=== PATIENT | female | born 1930 | race Caucasian/White ===

== ENCOUNTER → 2016-09-25 | Day surgery (SDC) | payer OTHER ==
[~2016-09-25] VITALS: Ht 154.9 cm; Wt 72.7 kg
[~2016-09-25] MED LIST: ASPEC81 PO; CALC500C70 PO; CHOL1000 PO; FENTANYL CITRATE INJ 50 MCG/1 ML 2 ML VIAL ONE; FRS/40 PO; LIDOCAINE HCL 2% 2 ML VIAL (20MG/ML) ONE; LPT/40 PO; METO50TA7 PO; MULT-768 PO; OMEP20CA9 PO; POTA20TA16 PO; PROPOFOL IV EMULSION 10 MG/ML 20 ML VIAL IV ONE; SODIUM CHLORIDE 0.9% 500ML 500 ML IV ONE; TYL325X PO
[2016-09-25 10:04] VITALS: Ht 154.9 cm; Wt 72.7 kg
--- NOTE | 2016-09-25 10:16 | Endo History and Physical ---
History & Physical Date of Service: Sep 25, 2016. Chief Complaint: Diverticulitis Referring Physician: History of Present Illness 86 yo presenting for evaluation for colonoscopy after admission in June for abnormal CT scan revealing mild terminal illeal inflammation Past Medical History Angioplasty/Stent, Osteoporosis, Arthritis, Reflux, Hypertension, CVA/TIA, Other Past Surgical History Hx Cardiac Surgery: Yes (HEART CATH-2 STENTS) Hx Internal Defibrillator: No Hx Pacemaker: No Hx Abdominal Surgery: Yes (JOSE, COLON SX WITH COLOSTOMY WITH REVERSAL MANY YEARS AGO) Hx Post-Op Nausea and Vomiting: No Hx Cancer Surgery: No Hx Thoracic Surgery: No Hx Orthopedic: Yes (LEFT FOOT SX X 3) Hx Urinary Tract Surgery: No Social History Smoking Status: Never Smoker Hx Substance Use: No Hx Alcohol Use: No Allergies Coded Allergies: No Known Allergies (Verified , 09/15/16) Current Medications Reported Home Medications Medications Dose Route/Sig Max Daily Dose Days Date Category Os-Ole 500 Plus D (Calcium/Vitamin D) Tab 1 Tab PO DAILY 07/06/16 Reported Prilosec (Omeprazole) 20 Mg Cap 20 Mg PO BID 07/06/16 Reported Vitamin D3 (Cholecalciferol) 1,000 Unit Tab 1 Tab PO QAM 30 07/06/16 Reported Macular Vitamin Benefit (Multiple Vitamins W/ Minerals) 1 Tab Tab 1 Tab PO DAILY 07/06/16 Reported Tylenol (Acetaminophen) 325 Mg Tab 650 Mg PO Q6H PRN 10 12/15/15 Rx Lipitor (Atorvastatin) 40 Mg Tab 40 Mg PO QPM 10 12/15/15 Rx Klor-Con (Potassium Chloride) 20 Meq Tabcr 20 Meq PO NOON 10 12/15/15 Rx Toprol-Xl (Metoprolol Succinate) 50 Mg Tabcr 50 Mg PO NOON 10 12/15/15 Rx Lasix (Furosemide) 40 Mg Tab 40 Mg PO QAM 10 12/15/15 Rx Ecotrin Or Generic * (Aspirin) 81 Mg Ectab 81 Mg PO QAM 02/27/09 Reported Vital Signs Weight (Kilograms): 72.73 Height (Feet): 5 Height (Inches): 1 Date Time Temp Pulse Resp B/P Pulse Ox O2 Delivery O2 Flow Rate FiO2 09/25/16 09:59 36.7 90 20 131/73 94 Room Air Physical Exam General Appearance: WD/WN, no apparent distress Respiratory/Chest: Respiratory effort: no dyspnea Auscultation: breath sounds normal, CTA except as noted, no wheezing Cardiovascular: Apical Impulse: not displaced Heart Auscultation: RRR, normal S1, normal S2 Abdomen: Bowel Sounds: normal Inspection & Palpation: soft, non-distended Assessment and Plan 86 yo presenting for evaluation for abnormal CT scan for the terminal illeum
--- NOTE | 2016-09-25 11:38 | GI REPORT ---
Procedure Date: 09/25/2016 10:27 AM Procedure: Colonoscopy Indications: Abnormal CT of the GI tract, Admission in June 2016 with abdominal pain and CT suggesting inflammation of the terminal ileum. Medicines: General Anesthesia Complications: No immediate complications. Estimated blood loss: None. Estimated Blood Loss: Estimated blood loss: none. Procedure: Pre-Anesthesia Assessment: - Pre-Anesthesia Assessment: - Prior to the procedure, a History and Physical was performed, and patient medications, allergies and sensitivities were reviewed. The patient's tolerance of previous anesthesia was reviewed. Please see [employer] for complete details. - The risks and benefits of the procedure and the sedation options and risks were discussed with the patient. All questions were answered and informed consent was obtained. - Patient identification and proposed procedure were verified prior to the procedure by the physician and the nurse. The procedure was verified in the pre-procedure area in the procedure room. After obtaining informed consent, the endoscope was passed carefully and meticuously under direct vision and only advanced when the lumen was clearly identified, C02 insuflation was utilized throughout the entirity of the procedure. Throughout the procedure, the patient's blood pressure, pulse, and oxygen saturations were monitored continuously. After I obtained informed consent, the scope was passed under direct vision. Throughout the procedure, the patient's blood pressure, pulse, and oxygen saturations were monitored continuously. The scope was introduced through the anus and advanced to the terminal ileum, with identification of the appendiceal orifice and IC valve. The colonoscopy was performed without difficulty. The patient tolerated the procedure well. The quality of the bowel preparation was fair. Findings: A diffuse area of mild melanosis was found in the entire colon. A 8 mm polyp was found in the ascending colon. The polyp was sessile. The polyp was removed with a saline injection-lift technique using a hot snare. Resection and retrieval were complete. A 5 mm polyp was found in the transverse colon. The polyp was sessile. The polyp was removed with a cold snare. Resection and retrieval were complete. A 6 mm polyp was found in the sigmoid colon. The polyp was semi-pedunculated. The polyp was removed with a cold snare. Resection and retrieval were complete. To prevent bleeding post-intervention, one hemostatic clip was successfully placed (MR conditional). There was no bleeding at the end of the procedure. The terminal ileum appeared normal. Internal hemorrhoids were found during retroflexion. Multiple small-mouthed diverticula were found in the sigmoid colon and in one area there was an associated angulation with mild edema but no functional narrowing, this may be where prior ostomy was. Impression: - Melanosis in the colon. - One 8 mm polyp in the ascending colon, removed using injection-lift and a hot snare. Resected and retrieved. - One 5 mm polyp in the transverse colon, removed with a cold snare. Resected and retrieved. - One 6 mm polyp in the sigmoid colon, removed with a cold snare. Resected and retrieved. Clip (MR conditional) was placed. - The examined portion of the ileum was normal. - Internal hemorrhoids. - Diverticulosis in the sigmoid colon. Recommendation: - Discharge patient to home (with escort). - Await pathology results. - Return to referring physician as previously scheduled. Abe Jaimes MD 09/25/2016 11:38:33 AM This report has been signed electronically. Note Initiated On: 09/25/2016 10:27 AM
--- NOTE | 2016-09-25 11:39 | Discharge Instructions ---
Endoscopy Patient Instructions Date / Procedure(s) Performed Sep 25, 2016. Colonoscopy Allergy Information Coded Allergies: No Known Allergies (Verified , 09/15/16) Discharge Date / Findings Sep 25, 2016. Three polyps-all removed No evidence of inflammation Diverticula Internal hemorrhoids Medication Instructions Stopped Medication(s): BROWN LOZADA TOOK ASPIRIN 08/24/16 Provider Instructions Activity Restrictions - No exercising or heavy lifting for 24 hours. - Do not drink alcohol the day of the procedure. - Do not drive a car or operate machinery until the day after the procedure. - Do not make any important decisions or sign important papers in 24 hours after the procedure. Following Day: - Return to full activity which may include returning to work/school. Diet Start your diet with liquids and light foods (jello, soup, juice, toast). Then eat your usual diet if not nauseated. Treatment For Common After Affects For mild abdominal pain, bloating, or excessive gas: - Rest - Eat lightly - Lie on right side Follow-Up Information Follow-up with DR YADAV as scheduled Anesthesia Information What You Should Know You have had a procedure that required some medicine to reduce anxiety and discomfort. This treatment is called moderate sedation. After receiving the treatment, you may be sleepy, but you will be able to breathe on your own. The effects of the treatment may last for several hours. Follow these instructions along with Activity/Diet recommendations noted above: * Do NOT do anything where dizziness or clumsiness would be dangerous. * Rest quietly at home today, then you can be up and about tomorrow. * Have a responsible person stay with you the rest of today. * You may have had an I.V. today. If so, you may take the dressing off later today. Recommendations Call your doctor if: * Trouble breathing * Continuous vomiting for more than 24 hours * Temperature above 101 degrees * Severe abdominal pain or bloating * Pain not relieved by pain medicine ordered * There is increased drainage or redness from any incision * A large amount of rectal bleeding greater than 2-3 tablespoons. (If you had a polyp/s removed or have hemorrhoids, a small amount of blood - from the rectum is to be expected.) * You have any unanswered questions or concerns. IN THE EVENT OF A SERIOUS EMERGENCY, GO TO THE NEAREST EMERGENCY ROOM Your discharge instructions were prepared by provider Abe Jaimes. Patient Instructions Signature Page Liz Ludy Patient (or Guardian) Signature/Date: I have read and understand the instructions given to me by my caregivers. Caregiver/RN/Doctor Signature/Date: The above-named patient and/or guardian has received patient instructions on this date. + Original Patient Signature Page (only) stays with chart. Please make copy for patient.
[2016-09-25 12:16] VITALS: BP 138/62; PULSE 77; O2SAT 99
--- NOTE | 2016-09-25 12:21 | Anesthesiology Progress Note ---
Anesthesia Post Op Note Date & Time Sep 25, 2016 at 12:21 Vital Signs Pain Intensity: 3 Vital Signs Past 12 Hours Date Time Temp Pulse Resp B/P Pulse Ox O2 Delivery O2 Flow Rate FiO2 09/25/16 12:16 77 20 138/62 99 Room Air 09/25/16 11:58 79 20 136/65 97 Room Air 09/25/16 11:38 73 20 97/53 97 Room Air 09/25/16 09:59 36.7 90 20 131/73 94 Room Air Notes Mental Status: alert / awake / arousable, participated in evaluation Pt Amnestic to Procedure: Yes Nausea / Vomiting: adequately controlled Pain: adequately controlled Airway Patency, RR, SpO2: stable & adequate BP & HR: stable & adequate Hydration State: stable & adequate Anesthetic Complications: no major complications apparent
== END | disposition home or self-care (01) ==
LOC: C.GI 09:38
PROVIDERS: ATTEND Internal Medicine
DX: D12.2 Benign neoplasm of ascending colon (principal); D12.3 Benign neoplasm of transverse colon; D12.5 Benign neoplasm of sigmoid colon; K63.89 Other specified diseases of intestine; K57.30 Diverticulosis of large intestine without perforation or abscess without bleeding; I10 Essential (primary) hypertension; M81.0 Age-related osteoporosis without current pathological fracture; K21.9 Gastro-esophageal reflux disease without esophagitis; Z86.73 Personal history of transient ischemic attack (TIA), and cerebral infarction without residual deficits

== ENCOUNTER 2019-09-29 18:05 | Inpatient (IN) ==
[2019-09-29] MEDS ORDERED: ALBUT/IPRATROP 3MG/0.5MG NEB 3 ML VIAL NEB STA (18:08)
[2019-09-29 18:50] LABS: Basophils # (auto) 0.04 K/uL (0-0.2); Basophils % (auto) 0.5 %; Eosinophils # (auto) 0.02 K/uL (0-0.5); Eosinophils % (auto) 0.2 %; Hematocrit (blood only) 40.5 % (37-47); Hemoglobin 13.4 g/dL (12.0-16.0); Immature Granulocytes # (auto) 0.02 K/uL (0.00-0.02); Immature Granulocytes % (auto) 0.2 %; Lymphocytes # (auto) 1.29 K/uL (1.2-3.4); Lymphocytes % (auto) 15.3 %; Mean Corpuscular Hemoglobin 32.6 pg (25-34); Mean Corpuscular Hgb Conc 33.1 g/dL (32-36); Mean Corpuscular Volume 98.5 fL (80-100); Mean Platelet Volume 10.4 fL (7.4-10.4); Monocytes # (auto) 1.32 K/uL (0.11-0.59); Monocytes % (auto) 15.7 %; Neutrophils # (auto) 5.74 K/uL (1.4-6.5); Neutrophils % (auto) 68.1 %; Platelet Count 243 K/uL (130-400); RDW Coefficient of Variation 13.4 % (11.5-14.5); Red Blood Count 4.11 M/uL (4.2-5.4); White Blood Count 8.43 K/uL (4.8-10.8)
[2019-09-29 18:59] LABS: Base Excess VBG -2.1 mEq/L; Oxygen Saturation VBG 95.1 %; pH VBG 7.44 (7.36-7.41)
[2019-09-29 19:00] LABS: Partial Thromboplastin Ratio 0.9; Partial Thromboplastin Time 25.6 Seconds (21.0-31.0); Prothrombin Time 10.7 Seconds (9.0-12.0)
[2019-09-29 19:08] LABS: BUN Creatinine Ratio 21.9 (10-20); Calcium 8.4 mg/dl (8.5-10.1); Creatinine Clr Calc Pharmacy 36.6 ml/min; Est GFR (African American) 48.7; Magnesium 2.3 mg/dl (1.8-2.4); Potassium 4.1 mmol/L (3.5-5.1)
[2019-09-29 19:15] LABS: Albumin Globulin Ratio 0.7 (0.9-2); Bilirubin,Total 0.2 mg/dl (0.2-1); Globulin 4.6 gm/dl (2.5-4.0); Total Protein 7.6 gm/dl (6.4-8.2); Troponin I 0.071 ng/ml (0-0.045)
[2019-09-29] MEDS ORDERED: SODIUM CHLORIDE 0.9% 1000ML 1,000 ML IV ONE (19:26)
--- NOTE | 2019-09-29 19:28 | XRay Report ---
SINGLE VIEW CHEST CLINICAL HISTORY: Sepsis. FINDINGS: An AP, portable, upright chest radiograph is compared to study dated 12/02/2015 and correlat ed with chest CT dated 05/21/2019. The examination is degraded by portable technique and patient rotat ion. The heart is enlarged noting atherosclerotic calcification of the thoracic aorta. The pulmonary vasculature is noncongested. Chronic interstitial thickening is similar to previous. Scarring/atelect asis is noted at the lung bases. No airspace consolidation or large pleural effusion is identified. N o pneumothorax is seen. The skeletal structures are osteopenic. There are numerous healed bilateral r ib fractures. IMPRESSION: Cardiomegaly with no active disease in the chest. ACT 112: Negative or not required by law. Electronically signed by: Augustin Tucker M.D. 09/29/2019 7:27 PM
[2019-09-29 19:33] LABS: Influenza A virus by PCR Neg for Influ A (Neg); Influenza B virus by PCR Neg for Influ B (Neg)
[2019-09-29] MEDS ORDERED: OPTIRAY 320 125ml IV PRN (19:48)
--- NOTE | 2019-09-29 20:05 | CT Scan Report ---
CT ANGIOGRAM OF THE CHEST CLINICAL HISTORY: Dyspnea. COMPARISON STUDY: Chest x-ray dated 09/29/2019. Chest CT dated 05/21/2019. TECHNIQUE: Following the IV administration of 118 cc of Optiray 320, CT angiogram of the chest was pe rformed from the upper abdomen to the thoracic inlet utilizing the pulmonary embolus protocol. Images are reviewed in the axial, sagittal, and coronal planes. 3-D MIPS images are created and assessed. I V contrast was administered without complication. A dose lowering technique was utilized adhering to the principles of ALARA. The examination is compromised by motion artifact. CT DOSE: 420.40 mGy.cm FINDINGS: Thyroid: Thyroid gland is markedly enlarged and heterogeneous consistent with multinodular goiter. Sc attered calcifications are noted. Thoracic aorta: There is atherosclerotic calcification of the thoracic aorta, which is normal in joy basia and demonstrates standard 3-vessel arch anatomy. No dissection is seen. Pulmonary vasculature: The pulmonary trunk is dilated measuring 3.3 cm in diameter. This suggests pul monary artery hypertension. There are no filling defects identified in main, lobar, or proximal segme ntal pulmonary branches to suggest pulmonary embolus. Evaluation of the peripheral branches is signif icantly degraded by motion artifact. Heart: The heart is enlarged and there is a small pericardial effusion. The coronary arteries are den sely calcified. Lungs and pleural spaces: Evaluation of the lung parenchyma is degraded by motion artifact. No airspa ce consolidation or pleural effusion is seen. Scarring/atelectasis is noted at both lung bases. The t rachea and central airways appear clear. Peribronchial thickening is noted at the lung bases. Fluid/s ecretions are present within the right lower lobe airways. Mediastinum: There are numerous subcentimeter mediastinal lymph nodes. Shannan: Clear. Axillae: There is no axillary lymphadenopathy. Upper abdomen: There is a small hiatal hernia. Partially visualized upper abdominal viscera is otherw ise grossly unremarkable. Skeletal structures: The skeletal structures are osteopenic. Numerous thoracic compression deformitie s are unchanged from previous. No lytic or blastic bony lesions are seen. There are numerous healed b ilateral rib fractures. IMPRESSION: 1. There is no evidence of central pulmonary embolus in the main, lobar, or proximal segmental pulmon chari arteries. 2. There is no airspace consolidation or pleural effusion. 3. Cardiomegaly. 4. There is mild diffuse peribronchial thickening, with fluid/secretions within the right lower lobe airways. Correlate clinically for evidence of bronchitis/reactive airway disease or possibly aspirati on. 5. Multinodular goiter is similar to previous. 6. Additional findings as above. ACT 112: Negative or not required by law. Electronically signed by: Augustin Tucker M.D. 09/29/2019 8:04 PM
--- NOTE | 2019-09-29 20:36 | Emergency Department Note ---
Entered by Nikki Stone acting as a scribe for Miguel Vizcaino DO History of Present Illness General Chief complaint: Shortness of Breath/Dyspnea Time Seen by Provider: 09/29/19 18:08 Source: family and EMS (dye house worker) History of Present Illness Onset (ago): hour(s) (earlier today) Location: mouth (shortness of breath) Pain Consistency: + other (worsening) Exacerbated By: + other (pneumonia) Associated symptoms: + other (productive cough) The patient is a 89 year old F who presents to the Emergency Room with complaints of worsening shortness of breath that stated earlier today. The majority of the HPI was provided by the dye house worker. The dye house worker states that the patient was diagnosed with pneumonia, earlier this week. He adds that the patient was started on Augmentin and Prednisone. He notes that the patient currently lives at [facility]. He states that the patient is always on 2L of oxygen at [facility]. He adds that the patient had a 98% oxygen saturation in the ambulance. He notes that the patient currently has a productive cough. The patients family states that they wanted the patient to come into the ED because they thought that the patient was not improving. They add that the patient fell down at the end of April and broke the left side of her ribs. They note that the patient was sent to [facility], after her fall. They state that the patient has a history of HTN and A Fib. Home Medications Home Medications Medication Instructions Recorded Confirmed Type atorvastatin 40 mg PO DAILY 05/21/19 09/29/19 History bisacodyl [Dulcolax (bisacodyl)] 10 mg OK DIRECTED PRN 05/21/19 09/29/19 History carboxymethylcellulose sodium 1 drp OPB BID 05/21/19 09/29/19 History [Refresh Tears] cyanocobalamin (vitamin B-12) 1,000 mcg PO DAILY 05/21/19 09/29/19 History furosemide 40 mg PO DAILY 05/21/19 09/29/19 History metoprolol succinate 50 mg PO DAILY 05/21/19 09/29/19 History omeprazole 20 mg PO BID 05/21/19 09/29/19 History Lidoderm 4% Patch 2 patch TOPICAL DIRECTED 09/29/19 09/29/19 History acetaminophen [Tylenol] 650 mg PO Q6H PRN MDD 3 GMS 09/29/19 09/29/19 History APAP/24 HOURS albuterol sulfate 2.5 mg INHALATION Q2H PRN 09/29/19 09/29/19 History albuterol sulfate 2.5 mg INHALATION QID 09/29/19 09/29/19 History amoxicillin-pot clavulanate 1 tab PO BID 09/29/19 09/29/19 History aspirin 81 mg PO DAILY 09/29/19 09/29/19 History calcium carbonate-vitamin D3 2 tab PO DAILY 09/29/19 09/29/19 History [Caltrate 600 plus D] carboxymethylcellulose sodium 1 drp OPB DAILY 09/29/19 09/29/19 History [Refresh Tears] dextromethorphan-guaifenesin 1 tab PO Q12H 09/29/19 09/29/19 History [Mucinex DM] docusate sodium 100 mg PO BID 09/29/19 09/29/19 History gabapentin 100 mg PO TID 09/29/19 09/29/19 History ipratropium-albuterol 3 ml INHALATION Q4H PRN 09/29/19 09/29/19 History magnesium hydroxide [Milk of 30 ml PO DIRECTED PRN 09/29/19 09/29/19 History Magnesia] naproxen 250 mg PO Q8H PRN 09/29/19 09/29/19 History ondansetron HCl 4 mg PO Q8H PRN 09/29/19 09/29/19 History oxycodone 5 mg PO Q6H PRN 09/29/19 09/29/19 History polyethylene glycol 3350 17 g PO DAILY PRN 09/29/19 09/29/19 History potassium chloride 30 meq PO DAILY 09/29/19 09/29/19 History prednisone See Rx Instructions .ROUTE .COMPLEX 09/29/19 09/29/19 History sodium phosphates [Fleet Enema] 118 ml OK DIRECTED PRN 09/29/19 09/29/19 History vit C,V-Op-mjqyf-lutein-zeaxan 1 cap PO BID 09/29/19 09/29/19 History [PreserVision AREDS-2] Allergies Allergy/AdvReac Type Severity Reaction Status Date / Time pregabalin [From Lyrica] Allergy Unknown Unknown Verified 09/29/19 21:46 Past Med/Surg History Social History Communication Tools: Other marital status: Single Current Living Situation: Personal Care Facility Current Living Situation Comment: [place] current occupational status: retired Feels Safe at Home: Yes Smoking Status: Unknown if ever smoked Review of Systems See HPI for pertinent positives & negatives. and A total of 10 systems reviewed and were otherwise negative Physical Exam Vital Signs Vital Signs - 24 hr 09/29/19 18:08 09/29/19 18:11 09/29/19 18:21 Temperature 36.9 C Temperature Source Oral Pulse Rate 104 H 100 H 108 H Pulse Rate [Apical] Pulse Rate from SpO2 Sensor 101 H 106 H Pulse Rhythm Regular Respiratory Rate 34 H 29 H 31 H Respiratory Effort / Characteristics Non-Labored Spontaneous Respiratory Depth Normal Respiratory Pattern Regular Blood Pressure 175/91 H 175/91 H Blood Pressure Mean 119 97 Blood Pressure Position Lying Pulse Oximetry 96 97 97 Oxygen Delivery Method Nasal Cannula Oxygen Flow Rate 2 Sepsis Recent Fever Within 48 Hours No Sepsis New/Unexplained Change in Mental Status No Sepsis Action Taken by Nursing No Action Required Oxygen Flow Rate - Titration 2 Pulse Oximetry Post Tiitration 99 09/29/19 18:22 09/29/19 18:30 09/29/19 18:42 Temperature Temperature Source Pulse Rate 105 H 106 H Pulse Rate [Apical] 106 H Pulse Rate from SpO2 Sensor 103 H 105 H Pulse Rhythm Respiratory Rate 34 H 19 33 H Respiratory Effort / Characteristics Spontaneous Labored Respiratory Depth Respiratory Pattern Blood Pressure 140/82 Blood Pressure Mean 106 Blood Pressure Position Pulse Oximetry 97 97 96 Oxygen Delivery Method Nasal Cannula Oxygen Flow Rate 3 Sepsis Recent Fever Within 48 Hours Sepsis New/Unexplained Change in Mental Status Sepsis Action Taken by Nursing Oxygen Flow Rate - Titration Pulse Oximetry Post Tiitration 09/29/19 18:44 09/29/19 18:45 09/29/19 19:00 Temperature Temperature Source Pulse Rate 102 H 102 H 101 H Pulse Rate [Apical] Pulse Rate from SpO2 Sensor 102 H 92 H 99 H Pulse Rhythm Respiratory Rate 30 H 44 H 28 H Respiratory Effort / Characteristics Respiratory Depth Respiratory Pattern Blood Pressure 147/92 H 144/84 H 153/81 H Blood Pressure Mean 116 105 120 Blood Pressure Position Pulse Oximetry 96 96 96 Oxygen Delivery Method Nasal Cannula Nasal Cannula Nasal Cannula Oxygen Flow Rate 2 2 2 Sepsis Recent Fever Within 48 Hours Sepsis New/Unexplained Change in Mental Status Sepsis Action Taken by Nursing Oxygen Flow Rate - Titration Pulse Oximetry Post Tiitration 09/29/19 19:15 09/29/19 19:30 09/29/19 19:54 Temperature Temperature Source Pulse Rate 104 H 100 H Pulse Rate [Apical] Pulse Rate from SpO2 Sensor 98 H 100 H 104 H Pulse Rhythm Respiratory Rate 28 H 28 H Respiratory Effort / Characteristics Respiratory Depth Respiratory Pattern Blood Pressure 134/85 135/82 158/73 H Blood Pressure Mean 113 110 86 Blood Pressure Position Pulse Oximetry 96 97 97 Oxygen Delivery Method Nasal Cannula Nasal Cannula Nasal Cannula Oxygen Flow Rate 2 2 2 Sepsis Recent Fever Within 48 Hours Sepsis New/Unexplained Change in Mental Status Sepsis Action Taken by Nursing Oxygen Flow Rate - Titration Pulse Oximetry Post Tiitration 09/29/19 20:00 09/29/19 20:31 09/29/19 21:00 Temperature Temperature Source Pulse Rate 99 H 104 H 102 H Pulse Rate [Apical] Pulse Rate from SpO2 Sensor 99 H 96 H Pulse Rhythm Respiratory Rate 54 H 40 H 27 H Respiratory Effort / Characteristics Respiratory Depth Respiratory Pattern Blood Pressure 139/79 169/64 H 145/83 H Blood Pressure Mean 92 132 105 Blood Pressure Position Pulse Oximetry 98 92 Oxygen Delivery Method Nasal Cannula Nasal Cannula Nasal Cannula Oxygen Flow Rate 2 2 2 Sepsis Recent Fever Within 48 Hours Sepsis New/Unexplained Change in Mental Status Sepsis Action Taken by Nursing Oxygen Flow Rate - Titration Pulse Oximetry Post Tiitration GENERAL: Patient is awake, alert, and in no acute distress. Patient is somewhat anxious. EYES: The conjunctivae are clear. The pupils are round and reactive. EARS, NOSE, MOUTH AND THROAT: The nose is without any evidence of any deformity. Mucous membranes are moist.Tongue is midline NECK: The neck is nontender and supple. RESPIRATORY: Normal respiratory effort is noted. The lungs are diminished throughout with rales and expiratory wheezes throughout. CARDIOVASCULAR: Tachycardic rate and regular rhythm noted. There no definite murmurs rubs or gallops normal S1 normal S2 GASTROINTESTINAL: The abdomen is soft. Bowel sounds are present in all quadrants. Abdomen is nontender. MUSCULOSKELETAL/EXTREMITIES: There is no evidence of gross deformity. Full range of motion is noted in the hips and shoulders. SKIN: There is no obvious evidence of any rash. There are no petechiae, pallor or cyanosis noted. NEUROLOGIC: Patient is awake alert and oriented x3. Strength is symmetric. Patellar reflexes are 2+ bilaterally. Course Course 1806: The patient was evaluated in room C9. A complete history and physical exam was performed. 1909: I re-checked the patient and she is doing better. The patient is also rneetta thing better. 2026: I reviewed the patient's case with Dr. Luke Valdez, [facility] Hospitalist. He will evaluate the patient for further management. Administered Medications Piperacillin Sod/Tazobactam (Sod 3.375 gm/ Dextrose) 115 mls @ 230 mls/hr IV NOW ONE; Protocol Stop: 09/29/19 23:29 Last Admin: 09/29/19 22:47 Dose: 230 mls/hr Documented by: [id number] Ioversol (Optiray 320 125ml) 118 ml IV ONCE PRN PRN Reason: Interaction Checking Stop: 10/03/19 19:47 Last Admin: 09/29/19 19:48 Dose: 118 ml Documented by: [id number] Discontinued Medications Albuterol (Duoneb) 3 ml NEB NOW STA Stop: 09/29/19 18:09 Last Admin: 09/29/19 18:19 Dose: 3 ml Documented by: [id number] Sodium Chloride (Nss 1000ml) 1,000 mls @ 999 mls/hr IV .Q1H1M ONE Stop: 09/29/19 20:26 Last Infusion: 09/29/19 21:41 Dose: 0 mls/hr Documented by: [id number] Admin: 09/29/19 19:42 Dose: 999 mls/hr Documented by: [id number] Methylprednisolone 125 mg/ (Syringe) 2 mls @ 1.5 mls/min IV ONE ONE Stop: 09/29/19 22:46 Last Admin: 09/29/19 22:46 Dose: 1.5 mls/min Documented by: [id number] Medical Decision Making Differential Diagnosis Differential diagnoses includes but is not limited to pneumonia, bronchitis, CO PD/Asthma exacerbation, pneumothorax, pulmonary embolism, congestive heart failure, acute coronary syndrome Medical Records Attestation: I reviewed the patient's medical records. Home Medications Current Medication List: was personally reviewed by me Laboratory Data Attestation: I reviewed the patient's lab results. Result diagrams: 09/29/19 18:37 09/29/19 18:37 Lab Results 02/03/1109/29/19 09/29/19 Range/Units 18:37 18:37 18:37 WBC 8.43 (4.8-10.8) K/uL RBC 4.11 L (4.2-5.4) M/uL Hgb 13.4 (12.0-16.0) g/dL Hct 40.5 (37-47) % MCV 98.5 (80-100) fL MCH 32.6 (25-34) pg MCHC 33.1 (32-36) g/dL RDW Std Deviation 48.0 H (36.4-46.3) fL RDW Coeff of Noa 13.4 (11.5-14.5) % Plt Count 243 (130-400) K/uL MPV 10.4 (7.4-10.4) fL Immature Gran % (Auto) 0.2 % Neut % (Auto) 68.1 % Lymph % (Auto) 15.3 % Garrett % (Auto) 15.7 % Eos % (Auto) 0.2 % Baso % (Auto) 0.5 % Immature Gran # (Auto) 0.02 (0.00-0.02) K/uL Neut # (Auto) 5.74 (1.4-6.5) K/uL Lymph # (Auto) 1.29 (1.2-3.4) K/uL Garrett # (Auto) 1.32 H (0.11-0.59) K/uL Eos # (Auto) 0.02 (0-0.5) K/uL Baso # (Auto) 0.04 (0-0.2) K/uL PT 10.7 (9.0-12.0) Seconds INR 1.0 (0.9-1.1) APTT 25.6 (21.0-31.0) Seconds PTT Ratio 0.9 VBG pH (7.36-7.41) VBG pCO2 (38-50) mmHg VBG pO2 mmHg VBG HCO3 mmol/L VBG O2 Saturation % VBG Base Excess mEq/L Barometric Pressure mm/Hg Sodium 140 (136-145) mmol/L Potassium 4.1 (3.5-5.1) mmol/L Chloride 112 H (98-107) mmol/L Carbon Dioxide 21 (21-32) mmol/L Anion Gap 7.0 (3-11) BUN 25 H (7-18) mg/dl Creatinine 1.16 (0.6-1.2) mg/dl Est Cr Clr Drug Dosing 36.6 ml/min Est GFR ( Amer) 48.7 Est GFR (Non-Af Amer) 42.0 BUN/Creatinine Ratio 21.9 H (10-20) Glucose 132 H (70-99) mg/dl Lactate (0.4-2.0) mmol/L Calcium 8.4 L (8.5-10.1) mg/dl Magnesium 2.3 (1.8-2.4) mg/dl Total Bilirubin 0.2 (0.2-1) mg/dl AST 13 L (15-37) U/L ALT 17 (12-78) U/L Alkaline Phosphatase 74 (45-117) U/L Troponin I 0.071 H* (0-0.045) ng/ml NT-Pro-B Natriuret Pep 1112 (0-1800) pg/ml Total Protein 7.6 (6.4-8.2) gm/dl Albumin 3.0 L (3.4-5.0) gm/dl Globulin 4.6 H (2.5-4.0) gm/dl Albumin/Globulin Ratio 0.7 L (0.9-2) Procalcitonin (0-0.5) ng/ml Influenza Type A (PCR) (Neg) Influenza Type B (PCR) (Neg) 09/29/19 09/29/19 09/29/19 Range/Units 18:37 18:38 18:38 WBC (4.8-10.8) K/uL RBC (4.2-5.4) M/uL Hgb (12.0-16.0) g/dL Hct (37-47) % MCV (80-100) fL MCH (25-34) pg MCHC (32-36) g/dL RDW Std Deviation (36.4-46.3) fL RDW Coeff of Noa (11.5-14.5) % Plt Count (130-400) K/uL MPV (7.4-10.4) fL Immature Gran % (Auto) % Neut % (Auto) % Lymph % (Auto) % Garrett % (Auto) % Eos % (Auto) % Baso % (Auto) % Immature Gran # (Auto) (0.00-0.02) K/uL Neut # (Auto) (1.4-6.5) K/uL Lymph # (Auto) (1.2-3.4) K/uL Garrett # (Auto) (0.11-0.59) K/uL Eos # (Auto) (0-0.5) K/uL Baso # (Auto) (0-0.2) K/uL PT (9.0-12.0) Seconds INR (0.9-1.1) APTT (21.0-31.0) Seconds PTT Ratio VBG pH 7.44 H (7.36-7.41) VBG pCO2 32 L (38-50) mmHg VBG pO2 69 mmHg VBG HCO3 21 mmol/L VBG O2 Saturation 95.1 % VBG Base Excess -2.1 mEq/L Barometric Pressure 722.6 mm/Hg Sodium (136-145) mmol/L Potassium (3.5-5.1) mmol/L Chloride (98-107) mmol/L Carbon Dioxide (21-32) mmol/L Anion Gap (3-11) BUN (7-18) mg/dl Creatinine (0.6-1.2) mg/dl Est Cr Clr Drug Dosing ml/min Est GFR ( Amer) Est GFR (Non-Af Amer) BUN/Creatinine Ratio (10-20) Glucose (70-99) mg/dl Lactate 2.3 H* (0.4-2.0) mmol/L Calcium (8.5-10.1) mg/dl Magnesium (1.8-2.4) mg/dl Total Bilirubin (0.2-1) mg/dl AST (15-37) U/L ALT (12-78) U/L Alkaline Phosphatase (45-117) U/L Troponin I (0-0.045) ng/ml NT-Pro-B Natriuret Pep (0-1800) pg/ml Total Protein (6.4-8.2) gm/dl Albumin (3.4-5.0) gm/dl Globulin (2.5-4.0) gm/dl Albumin/Globulin Ratio (0.9-2) Procalcitonin 0.11 (0-0.5) ng/ml Influenza Type A (PCR) (Neg) Influenza Type B (PCR) (Neg) 09/29/19 09/29/19 Range/Units 18:50 20:22 WBC (4.8-10.8) K/uL RBC (4.2-5.4) M/uL Hgb (12.0-16.0) g/dL Hct (37-47) % MCV (80-100) fL MCH (25-34) pg MCHC (32-36) g/dL RDW Std Deviation (36.4-46.3) fL RDW Coeff of Noa (11.5-14.5) % Plt Count (130-400) K/uL MPV (7.4-10.4) fL Immature Gran % (Auto) % Neut % (Auto) % Lymph % (Auto) % Garrett % (Auto) % Eos % (Auto) % Baso % (Auto) % Immature Gran # (Auto) (0.00-0.02) K/uL Neut # (Auto) (1.4-6.5) K/uL Lymph # (Auto) (1.2-3.4) K/uL Garrett # (Auto) (0.11-0.59) K/uL Eos # (Auto) (0-0.5) K/uL Baso # (Auto) (0-0.2) K/uL PT (9.0-12.0) Seconds INR (0.9-1.1) APTT (21.0-31.0) Seconds PTT Ratio VBG pH (7.36-7.41) VBG pCO2 (38-50) mmHg VBG pO2 mmHg VBG HCO3 mmol/L VBG O2 Saturation % VBG Base Excess mEq/L Barometric Pressure mm/Hg Sodium (136-145) mmol/L Potassium (3.5-5.1) mmol/L Chloride (98-107) mmol/L Carbon Dioxide (21-32) mmol/L Anion Gap (3-11) BUN (7-18) mg/dl Creatinine (0.6-1.2) mg/dl Est Cr Clr Drug Dosing ml/min Est GFR ( Amer) Est GFR (Non-Af Amer) BUN/Creatinine Ratio (10-20) Glucose (70-99) mg/dl Lactate 1.7 (0.4-2.0) mmol/L Calcium (8.5-10.1) mg/dl Magnesium (1.8-2.4) mg/dl Total Bilirubin (0.2-1) mg/dl AST (15-37) U/L ALT (12-78) U/L Alkaline Phosphatase (45-117) U/L Troponin I (0-0.045) ng/ml NT-Pro-B Natriuret Pep (0-1800) pg/ml Total Protein (6.4-8.2) gm/dl Albumin (3.4-5.0) gm/dl Globulin (2.5-4.0) gm/dl Albumin/Globulin Ratio (0.9-2) Procalcitonin (0-0.5) ng/ml Influenza Type A (PCR) Neg for Influ A (Neg) Influenza Type B (PCR) Neg for Influ B (Neg) Imaging Data Radiologist's Impression: Radiology results as stated below per my review and the radiologist's interpretation: SINGLE VIEW CHEST CLINICAL HISTORY: Sepsis. FINDINGS: An AP, portable, upright chest radiograph is compared to study dated 12/02/2015 and correlated with chest CT dated 05/21/2019. The examination is degraded by portable technique and patient rotation. The heart is enlarged noting atherosclerotic calcification of the thoracic aorta. The pulmonary vasculature is noncongested. Chronic interstitial thickening is similar to previous. Scarring/atelectasis is noted at the lung bases. No airspace consolidation or large pleural effusion is identified. No pneumothorax is seen. The skeletal structures are osteopenic. There are numerous healed bilateral rib fractures. IMPRESSION: Cardiomegaly with no active disease in the chest. ACT 112: Negative or not required by law. Electronically signed by: Augustin Tucker M.D. 09/29/2019 7:[address] ANGIOGRAM OF THE CHEST CLINICAL HISTORY: Dyspnea. COMPARISON STUDY: Chest x-ray dated 09/29/2019. Chest CT dated 05/21/2019. TECHNIQUE: Following the IV administration of 118 cc of Optiray 320, CT a ngiogram of the chest was performed from the upper abdomen to the thoracic inlet utilizing the pulmonary embolus protocol. Images are reviewed in the axial, sagittal, and coronal planes. 3-D MIPS images are created and assessed. IV contrast was administered without complication. A dose lowering technique was utilized adhering to the principles of ALARA. The examination is compromised by motion artifact. CT DOSE: 420.40 mGy.cm FINDINGS: Thyroid: Thyroid gland is markedly enlarged and heterogeneous consistent with multinodular goiter. Scattered calcifications are noted. Thoracic aorta: There is atherosclerotic calcification of the thoracic aorta, which is normal in caliber and demonstrates standard 3-vessel arch anatomy. No dissection is seen. Pulmonary vasculature: The pulmonary trunk is dilated measuring 3.3 cm in diameter. This suggests pulmonary artery hypertension. There are no filling defects identified in main, lobar, or proximal segmental pulmonary branches to suggest pulmonary embolus. Evaluation of the peripheral branches is significantly degraded by motion artifact. Heart: The heart is enlarged and there is a small pericardial effusion. The coronary arteries are densely calcified. Lungs and pleural spaces: Evaluation of the lung parenchyma is degraded by motion artifact. No airspace consolidation or pleural effusion is seen. Scarring/atelectasis is noted at both lung bases. The trachea and central airways appear clear. Peribronchial thickening is noted at the lung bases. Fluid/secretions are present within the right lower lobe airways. Mediastinum: There are numerous subcentimeter mediastinal lymph nodes. Shanann: Clear. Axillae: There is no axillary lymphadenopathy. Upper abdomen: There is a small hiatal hernia. Partially visualized upper abdominal viscera is otherwise grossly unremarkable. Skeletal structures: The skeletal structures are osteopenic. Numerous thoracic compression deformities are unchanged from previous. No lytic or blastic bony l esions are seen. There are numerous healed bilateral rib fractures. IMPRESSION: 1. There is no evidence of central pulmonary embolus in the main, lobar, or proximal segmental pulmonary arteries. 2. There is no airspace consolidation or pleural effusion. 3. Cardiomegaly. 4. There is mild diffuse peribronchial thickening, with fluid/secretions within the right lower lobe airways. Correlate clinically for evidence of bronchitis/reactive airway disease or possibly aspiration. 5. Multinodular goiter is similar to previous. 6. Additional findings as above. ACT 112: Negative or not required by law. Electronically signed by: Augustin Tucker M.D. 09/29/2019 8:04 PM ECG Data Attestation: I personally reviewed and interpreted this ECG as follows: Indication: + SOB/dyspnea Rate (beats per minute): 104 Rhythm: + atrial fibrillation ECG Intervals/blocks: + Right Bundle branch block ECG Findings: no PVCs Comparison ECG Date: from (06/02/13) Change: the following changes noted Additional Comments: A Fib has now replaced previous normal sinus rhythm. Blood Pressure Blood Pressure Findings: Elevated blood pressure Blood Pressure Disposition: further management by hospitalist MIGEL Rodriguez The patient is an 89-year-old female who presented to the emergency department from her [facility] for an evaluation of difficulty breathing. The patient was found to have tachypnea as well as diminished breath sounds noted throughout. She was treated with bronchodilator therapy. The patient was also treated with IV fluids. The patient reportedly had an outpatient chest x-ray which revealed a right-sided pneumonia and was started on antibiotics in the [facility]. The patient continued to worsen and at the request of her family member she was sent to the emergency department. I discussed the patient's laboratory and radiographic studies with her family members. She was found to have tachycardia and an elevated troponin in the emergency department. For this reason CT of the chest was obtained to rule out pulmonary venous thromboembolic disease. There is no definite infiltrate noted on CT or pulmonary embolism. At this time I feel the patient's condition is most likely due to a lower airway inflammation possibly bronchitis or aspiration. I discussed the patient's condition with the on-call [facility] hospitalist group. They have agreed to evaluate the patient in the emergency department for further management and disposition. Impression & Plan Bronchitis, Respiratory distress, Elevated troponin Discharge Plan Visit Data *Final* Discharge Date/Time: 09/29/19 21:53 Chief Complaint: Shortness of Breath/Dyspnea ED Provider: Miguel Vizcaino Discharge Problem: Bronchitis, Respiratory distress, Elevated troponin Patient Disposition: Admitted As Inpatient Discharge Instructions Interventions: ED Discharge Assessment Last Done: 09/29/19 21:53 The scribe's documentation has been prepared under my direction and personally reviewed by me in its entirety. I confirm that the note above accurately reflects all work, treatment, procedures, and medical decision making performed by me.
[2019-09-29] MEDS ORDERED: GUAIFENESIN/DEXTROM SYRUP 200MG/20MG 10ML UDC PO STA (20:57)
[2019-09-29] MEDS ORDERED: VANCOMYCIN CONSULT ACTIVE PRN (22:25)
[2019-09-29] MEDS ORDERED: ONDANSETRON INJ 2 MG/ML 2 ML VIAL IV PRN (22:25)
[2019-09-29] MEDS ORDERED: VANCOMYCIN HCL 1,000 MG/270 ML BAG IV STA (22:25)
[2019-09-29] MEDS ORDERED: MAGNESIUM HYDROXIDE SUSP 30 ML UDC PO PRN (22:25)
[2019-09-29] MEDS ORDERED: PIPERACILL/TAZOBAC CONSULT ACTIVE PRN (22:25)
[2019-09-29] MEDS ORDERED: methylPREDNISolone 125 MG/2 ML VIAL IV STA (22:25)
[2019-09-29] MEDS ORDERED: ALUMINUM/MAGNESIUM SUSP 30 ML UDC PO PRN (22:25)
[2019-09-29] MEDS ORDERED: ACETAMINOPHEN 325 MG TAB PO PRN (22:25)
[2019-09-29] MEDS ORDERED: methylPREDNISolone 125 MG in SYRINGE 0 ML IV ONE (22:45)
[2019-09-29] MEDS ORDERED: FUROSEMIDE 20 MG in SYRINGE 0 ML IV ONE (22:49)
[2019-09-29] MEDS ORDERED: PIPERACILLIN/TAZOBACTAM 3.375 GM in DEXTROSE 5% 100 ML IV ONE (23:00)
[2019-09-29] MEDS ORDERED: VANCOMYCIN HCL 1,750 MG in SODIUM CHLORIDE 0.9% 500 ML IV SCH (23:00)
--- NOTE | 2019-09-29 23:26 | History & Physical Report ---
Date of Service September 29, 2019 Assessment & Plan (1) Acute respiratory failure with hypoxia: Acute respiratory failure with hypoxia/bronchopneumonia/aspiration pneumonia- Admit to monitored bed. DuoNebs 4 times daily and every 2 hours PRN. Vancomycin IV per pharmacokinetic monitoring. Zosyn IV per pharmacokinetic monitoring. Guaifenesin with dextromethorphan 10 mils p.o. every 4 hours as needed. Pulmicort Respules 0.5 mg inhaled twice daily. Methylprednisolone 125 mg IV now and 40 mg IV every 8 hours. Present on Admission?: Yes (2) Bronchopneumonia: See above Present on Admission?: Yes (3) Aspiration pneumonia: See above Present on Admission?: Yes (4) Elevated troponin: Elevated troponin/CAD/history of coronary artery stent- Troponin mildly elevated at 0.071 upon admission. Likely type II OR, supply demand mismatch. Follow serial troponins. Order echocardiogram. Continue aspirin 81 mg daily, metoprolol succinate 50 mg p.o. daily. Hold furosemide and potassium for now. Consult cardiology. Present on Admission?: Yes (5) CAD (coronary artery disease): See above Present on Admission?: Yes (6) Dyslipidemia: Continue atorvastatin 40 mg daily Present on Admission?: Yes (7) GERD (gastroesophageal reflux disease): Omeprazole 20 mg p.o. twice daily Present on Admission?: Yes (8) Neurapraxia of peripheral nerve: Continue gabapentin 100 mg p.o. 3 times daily Present on Admission?: Yes History of Present Illness Chief Complaint: The patient is brought to the emergency department after she was reportedly diagnosed with pneumonia earlier in the week at [facility], where she was started on Augmentin and prednisone, and has continued worsening shortness of breath and wheezing. Primary Care Provider: [facility] The patient is an 89-year-old female resident of [facility], with a past medical history including CAD, GERD, dyslipidemia, stented coronary artery, UTI and peripheral nerve apraxia. She was diagnosed with pneumonia earlier in the week and started on Augmentin and prednisone, but has continued to have worsening shortness of breath, cough and wheezing. Allergies Allergy/AdvReac Type Severity Reaction Status Date / Time pregabalin [From Lyrica] Allergy Unknown Unknown Verified 09/29/19 21:46 Home Medications Home Medications Medication Instructions Recorded Confirmed Type atorvastatin 40 mg PO DAILY 05/21/19 09/29/19 History bisacodyl [Dulcolax (bisacodyl)] 10 mg RI DIRECTED PRN 05/21/19 09/29/19 History carboxymethylcellulose sodium 1 drp OPB BID 05/21/19 09/29/19 History [Refresh Tears] cyanocobalamin (vitamin B-12) 1,000 mcg PO DAILY 05/21/19 09/29/19 History furosemide 40 mg PO DAILY 05/21/19 09/29/19 History metoprolol succinate 50 mg PO DAILY 05/21/19 09/29/19 History omeprazole 20 mg PO BID 05/21/19 09/29/19 History Lidoderm 4% Patch 2 patch TOPICAL DIRECTED 09/29/19 09/29/19 History acetaminophen [Tylenol] 650 mg PO Q6H PRN MDD 3 GMS 09/29/19 09/29/19 History APAP/24 HOURS albuterol sulfate 2.5 mg INHALATION Q2H PRN 09/29/19 09/29/19 History albuterol sulfate 2.5 mg INHALATION QID 09/29/19 09/29/19 History amoxicillin-pot clavulanate 1 tab PO BID 09/29/19 09/29/19 History aspirin 81 mg PO DAILY 09/29/19 09/29/19 History calcium carbonate-vitamin D3 2 tab PO DAILY 09/29/19 09/29/19 History [Caltrate 600 plus D] carboxymethylcellulose sodium 1 drp OPB DAILY 09/29/19 09/29/19 History [Refresh Tears] dextromethorphan-guaifenesin 1 tab PO Q12H 09/29/19 09/29/19 History [Mucinex DM] docusate sodium 100 mg PO BID 09/29/19 09/29/19 History gabapentin 100 mg PO TID 09/29/19 09/29/19 History ipratropium-albuterol 3 ml INHALATION Q4H PRN 09/29/19 09/29/19 History magnesium hydroxide [Milk of 30 ml PO DIRECTED PRN 09/29/19 09/29/19 History Magnesia] naproxen 250 mg PO Q8H PRN 09/29/19 09/29/19 History ondansetron HCl 4 mg PO Q8H PRN 09/29/19 09/29/19 History oxycodone 5 mg PO Q6H PRN 09/29/19 09/29/19 History polyethylene glycol 3350 17 g PO DAILY PRN 09/29/19 09/29/19 History potassium chloride 30 meq PO DAILY 09/29/19 09/29/19 History prednisone See Rx Instructions .ROUTE .COMPLEX 09/29/19 09/29/19 History sodium phosphates [Fleet Enema] 118 ml RI DIRECTED PRN 09/29/19 09/29/19 History vit C,L-Ry-zqcfa-lutein-zeaxan 1 cap PO BID 09/29/19 09/29/19 History [PreserVision AREDS-2] Past Med/Surg History Social History Preferred Language: Vietnamese Communication Ability: Impaired Communication Tools: 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 Physical Exam Physical Exam: The patient is awake, alert audibly wheezing and short of breath, anxious, normocephalic and atraumatic, sitting upright in bed, and in mild respiratory distress. HEENT--PERRL, EOMI, mucous membranes and oropharynx dry. Neck--supple. No JVD. No bruits. Thyroid normal, trachea midline, no adenopathy. Heart--normal S1 and S2. No murmurs, rubs or gallops. Lungs--coarse breath sounds bilaterally, right worse than left. Mild re spiratory distress with coughing. No accessory muscle use. Abdomen--normal bowel sounds and soft. Nontender. Nondistended. Extremities--no cyanosis or clubbing. No edema. Dermatologic--normal skin turgor, normal color, no abnormal lymph nodes, no rash. Neurologic--cranial nerves II through XII grossly intact. Rheumatologic--normal range of motion. Psychiatric--mildly anxious Results & Data Vital Signs (Past 12 Hours) Vital Signs Temp Pulse Pulse Resp BP BP Pulse Ox 09/29/19 22:10 98.1 F 101 H 22 176/75 H 98 09/29/19 21:30 101 H 22 155/88 H 89 L 09/29/19 21:00 102 H 27 H 145/83 H 92 09/29/19 20:31 104 H 40 H 169/64 H 09/29/19 20:00 99 H 54 H 139/79 98 09/29/19 19:54 158/73 H 97 09/29/19 19:30 100 H 28 H 135/82 97 09/29/19 19:15 104 H 28 H 134/85 96 09/29/19 19:00 101 H 28 H 153/81 H 96 09/29/19 18:45 102 H 44 H 144/84 H 96 09/29/19 18:44 102 H 30 H 147/92 H 96 09/29/19 18:42 106 H 33 H 140/82 96 09/29/19 18:30 105 H 19 97 09/29/19 18:22 106 H 34 H 97 09/29/19 18:21 108 H 31 H 97 09/29/19 18:11 100 H 29 H 175/91 H 97 09/29/19 18:08 98.4 F 104 H 34 H 175/91 H 96 Laboratory Results Laboratory Results WBC 8.43 K/uL (4.8-10.8) 09/29/19 18:37 RBC 4.11 M/uL (4.2-5.4) L 09/29/19 18:37 Hgb 13.4 g/dL (12.0-16.0) 09/29/19 18:37 Hct 40.5 % (37-47) 09/29/19 18:37 MCV 98.5 fL (80-100) 09/29/19 18:37 MCH 32.6 pg (25-34) 09/29/19 18:37 MCHC 33.1 g/dL (32-36) 09/29/19 18:37 RDW Std Deviation 48.0 fL (36.4-46.3) H 09/29/19 18:37 RDW Coeff of Noa 13.4 % (11.5-14.5) 09/29/19 18:37 Plt Count 243 K/uL (130-400) 09/29/19 18:37 MPV 10.4 fL (7.4-10.4) 09/29/19 18:37 Immature Gran % (Auto) 0.2 % 09/29/19 18:37 Neut % (Auto) 68.1 % 09/29/19 18:37 Lymph % (Auto) 15.3 % 09/29/19 18:37 Barton % (Auto) 15.7 % 09/29/19 18:37 Eos % (Auto) 0.2 % 09/29/19 18:37 Baso % (Auto) 0.5 % 09/29/19 18:37 Immature Gran # (Auto) 0.02 K/uL (0.00-0.02) 09/29/19 18:37 Neut # (Auto) 5.74 K/uL (1.4-6.5) 09/29/19 18:37 Lymph # (Auto) 1.29 K/uL (1.2-3.4) 09/29/19 18:37 Barton # (Auto) 1.32 K/uL (0.11-0.59) H 09/29/19 18:37 Eos # (Auto) 0.02 K/uL (0-0.5) 09/29/19 18:37 Baso # (Auto) 0.04 K/uL (0-0.2) 09/29/19 18:37 PT 10.7 Seconds (9.0-12.0) 09/29/19 18:37 INR 1.0 (0.9-1.1) 09/29/19 18:37 APTT 25.6 Seconds (21.0-31.0) 09/29/19 18:37 PTT Ratio 0.9 09/29/19 18:37 VBG pH 7.44 (7.36-7.41) H 09/29/19 18:38 VBG pCO2 32 mmHg (38-50) L 09/29/19 18:38 VBG pO2 69 mmHg 09/29/19 18:38 VBG HCO3 21 mmol/L 09/29/19 18:38 VBG O2 Saturation 95.1 % 09/29/19 18:38 VBG Base Excess -2.1 mEq/L 09/29/19 18:38 Barometric Pressure 722.6 mm/Hg 09/29/19 18:38 Sodium 140 mmol/L (136-145) 09/29/19 18:37 Potassium 4.1 mmol/L (3.5-5.1) 09/29/19 18:37 Chloride 112 mmol/L (98-107) H 09/29/19 18:37 Carbon Dioxide 21 mmol/L (21-32) 09/29/19 18:37 Anion Gap 7.0 (3-11) 09/29/19 18:37 BUN 25 mg/dl (7-18) H 09/29/19 18:37 Creatinine 1.16 mg/dl (0.6-1.2) 09/29/19 18:37 Est Cr Clr Drug Dosing 36.6 ml/min 09/29/19 18:37 Est GFR ( Amer) 48.7 09/29/19 18:37 Est GFR (Non-Af Amer) 42.0 09/29/19 18:37 BUN/Creatinine Ratio 21.9 (10-20) H 09/29/19 18:37 Glucose 132 mg/dl (70-99) H 09/29/19 18:37 Lactate 1.7 mmol/L (0.4-2.0) 09/29/19 20:22 Calcium 8.4 mg/dl (8.5-10.1) L 09/29/19 18:37 Magnesium 2.3 mg/dl (1.8-2.4) 09/29/19 18:37 Total Bilirubin 0.2 mg/dl (0.2-1) 09/29/19 18:37 AST 13 U/L (15-37) L 09/29/19 18:37 ALT 17 U/L (12-78) 09/29/19 18:37 Alkaline Phosphatase 74 U/L (45-117) 09/29/19 18:37 Troponin I 0.087 ng/ml (0-0.045) H* 09/29/19 22:35 NT-Pro-B Natriuret Pep 1112 pg/ml (0-1800) 09/29/19 18:37 Total Protein 7.6 gm/dl (6.4-8.2) 09/29/19 18:37 Albumin 3.0 gm/dl (3.4-5.0) L 09/29/19 18:37 Globulin 4.6 gm/dl (2.5-4.0) H 09/29/19 18:37 Albumin/Globulin Ratio 0.7 (0.9-2) L 09/29/19 18:37 Procalcitonin 0.11 ng/ml (0-0.5) 09/29/19 18:37 Influenza Type A (PCR) Neg for Influ A (Neg) 09/29/19 18:50 Influenza Type B (PCR) Neg for Influ B (Neg) 09/29/19 18:50 Diagnostic Findings [facility], [place] [phone] XRay Report Patient: NAIF CREWSAdmit Date: 09/29/19 MR#: [id number]: [address] Acct ID:[id number]: [facility] Date: [address] [place] [address] [facility] [address] Age: 89Location: ED Sex: F Room/Bed: Att Phy:Diagnosis: SOB Shyann [facility]: [facility] Fam Phy:Interpreting Phy: Augustin Tucker MD Admit Phy: Ordering Phy: Miguel Vizcaino DO cc: ~ SINGLE VIEW CHEST CLINICAL HISTORY: Sepsis. FINDINGS: An AP, portable, upright chest radiograph is compared to study dated 12/02/2015 and correlated with chest CT dated 05/21/2019. The examination is degraded by portable technique and patient rotation. The heart is enlarged n oting atherosclerotic calcification of the thoracic aorta. The pulmonary vasculature is noncongested. Chronic interstitial thickening is similar to previous. Scarring/atelectasis is noted at the lung bases. No airspace consolidation or large pleural effusion is identified. No pneumothorax is seen. The skeletal structures are osteopenic. There are numerous healed bilateral rib fractures. IMPRESSION: Cardiomegaly with no active disease in the chest. ACT 112: Negative or not required by law. Electronically signed by: Augustin Tucker M.D. 09/29/2019 7:27 PM Dictated: 09/29/191924 Transcribed: 09/29/191924 [facility], [place] [phone] XRay Report Patient: NAIF CREWSAdmit Date: 09/29/19 MR#: [id number]: [address] Acct ID:[id number]: [facility] Date: [address] Zip: [place] [address] Age: 89Location: ED Sex: F Room/Bed: Att Phy:Diagnosis: SOB Shyann Phy: [place] [place] Date: 09/29/19 Fam Phy:Interpreting Phy: Augustin Tucker MD Admit Phy: Ordering Phy: Miguel Vizcaino, cc: ~ SINGLE VIEW CHEST CLINICAL HISTORY: Sepsis. FINDINGS: An AP, portable, upright chest radiograph is compared to study dated 12/02/2015 and correlated with chest CT dated 05/21/2019. The examination is degraded by portable technique and patient rotation. The heart is enlarged noting atherosclerotic calcification of the thoracic aorta. The pulmonary vasculature is noncongested. Chronic interstitial thickening is similar to previous. Scarring/atelectasis is noted at the lung bases. No airspace consolidation or large pleural effusion is identified. No pneumothorax is seen. The skeletal structures are osteopenic. There are numerous healed bilateral rib fractures. IMPRESSION: Cardiomegaly with no active disease in the chest. ACT 112: Negative or not required by law. Electronically signed by: Augustin Tucker M.D. 09/29/2019 7:27 PM Dictated: 09/29/191924 Transcribed: 09/29/191924 [facility], [place] [phone] CT Scan Report Patient: NAIF CREWSAdmit Date: 09/29/19 MR#: [id number]: [address] Acct ID:[id number]: [facility] Date: [address] [place] [address] Zip: [place] [address] Age: 89Location: ED Sex: F Room/Bed: Att Phy:Diagnosis: SOB Shyann Phy: [place] [place] Date: 09/29/19 Fam Phy:Interpreting Phy: Augustin Tucker MD Admit Phy: Ordering Phy: Miguel Vizcaino DO cc: ~ CT ANGIOGRAM OF THE CHEST CLINICAL HISTORY: Dyspnea. COMPARISON STUDY: Chest x-ray dated 09/29/2019. Chest CT dated 05/21/2019. TECHNIQUE: Following the IV administration of 118 cc of Optiray 320, CT angiogram of the chest was performed from the upper abdomen to the thoracic inlet utilizing the pulmonary embolus protocol. Images are reviewed in the axial, sagittal, and coronal planes. 3-D MIPS images are created and assessed. IV contrast was administered without complication. A dose lowering technique w as utilized adhering to the principles of ALARA. The examination is compromised by motion artifact. CT DOSE: 420.40 mGy.cm FINDINGS: Thyroid: Thyroid gland is markedly enlarged and heterogeneous consistent with multinodular goiter. Scattered calcifications are noted. Thoracic aorta: There is atherosclerotic calcification of the thoracic aorta, which is normal in caliber and demonstrates standard 3-vessel arch anatomy. No dissection is seen. Pulmonary vasculature: The pulmonary trunk is dilated measuring 3.3 cm in diameter. This suggests pulmonary artery hypertension. There are no filling defects identified in main, lobar, or proximal segmental pulmonary branches to suggest pulmonary embolus. Evaluation of the peripheral branches is significantly degraded by motion artifact. Heart: The heart is enlarged and there is a small pericardial effusion. The coronary arteries are densely calcified. Lungs and pleural spaces: Evaluation of the lung parenchyma is degraded by motion artifact. No airspace consolidation or pleural effusion is seen. Scarring/atelectasis is noted at both lung bases. The trachea and central airways appear clear. Peribronchial thickening is noted at the lung bases. Fluid/secretions are present within the right lower lobe airways. Mediastinum: There are numerous subcentimeter mediastinal lymph nodes. Shannan: Clear. Axillae: There is no axillary lymphadenopathy. Upper abdomen: There is a small hiatal hernia. Partially visualized upper abdominal viscera is otherwise grossly unremarkable. Skeletal structures: The skeletal structures are osteopenic. Numerous thoracic compression deformities are unchanged from previous. No lytic or blastic bony lesions are seen. There are numerous healed bilateral rib fractures. IMPRESSION: 1. There is no evidence of central pulmonary embolus in the main, lobar, or proximal segmental pulmonary arteries. 2. There is no airspace consolidation or pleural effusion. 3. Cardiomegaly. 4. There is mild diffuse peribronchial thickening, with fluid/secretions within the right lower lobe airways. Correlate clinically for evidence of bronchitis/reactive airway disease or possibly aspiration. 5. Multinodular goiter is similar to previous. 6. Additional findings as above. ACT 112: Negative or not required by law. Electronically signed by: Augustin Tucker M.D. 09/29/2019 8:04 PM Dictated: 09/29/191955 Transcribed: 09/29/191955 Code Status & VTE Plan Code Status Full code VTE Prophylaxis Plan VTE Prophylaxis will be ordered: Yes PG Care Time/CCT Total # of Minutes Spent Total Time Spent with Patient: Total time spent is greater than 50% in coordination of care (as documented) at patient's floor/unit and/or counseling patient: Coding Level of Care Code 29641 Initial Inpt Care Lvl 3 Diagnoses Acute respiratory failure with hypoxia J96.01 Bronchopneumonia J18.0 Aspiration pneumonia J69.0 Elevated troponin R79.89 CAD (coronary artery disease) I25.10 Dyslipidemia E78.5 GERD (gastroesophageal reflux disease) K21.9 Neurapraxia of peripheral nerve T14.8XXA
[2019-09-30] MEDS ORDERED: ALBUT/IPRATROP 3MG/0.5MG NEB 3 ML VIAL NEB ONE (00:58)
[2019-09-30] MEDS ORDERED: SOD PHOSPHATE/SOD BIPHOSPHATE ENEMA 132 ML BTL PR PRN (01:38)
[2019-09-30] MEDS ORDERED: ACETAMINOPHEN 325 MG TAB PO PRN (01:38)
[2019-09-30] MEDS ORDERED: bisacodyL 10 MG SUPP PR PRN (01:38)
[2019-09-30] MEDS ORDERED: POLYETHYLENE (MIRALAX) 17 GM PACK PO PRN (01:38)
[2019-09-30 02:30] LABS: Appearance Urine Clear (Clear); Bilirubin Urine Negative (Negative); Blood Urine Negative (Negative); Color Urine Yellow; Glucose Urine UA Negative (Negative); Ketones Urine Negative (Negative); Leukocyte Esterase Urine Negative (Negative); Nitrite Urine Negative (Negative); Protein Urine Negative (Negative); Specific Gravity Urine 1.016 (1.000-1.030); Urobilinogen Urine Negative (Negative)
[2019-09-30] MEDS: methylPREDNISolone 40 MG in SYRINGE 0 ML IV SCH ×3 (04:16→21:06)
[2019-09-30] MEDS: PIPERACILLIN/TAZOBACTAM 3.375 GM in DEXTROSE 5% 100 ML IV SCH ×3 (04:16→21:03)
[2019-09-30] MEDS ORDERED: ALBUTEROL 0.083% NEBU SOLN 3 ML VIAL INH SCH (07:00)
[2019-09-30] MEDS: ALBUT/IPRATROP 3MG/0.5MG NEB 3 ML VIAL NEB SCH ×4 (07:05→19:32)
[2019-09-30] MEDS: BUDESONIDE 0.5 MG/2 ML VIAL (PULMICORT) NEB SCH ×2 (07:05→19:32)
[2019-09-30 07:41] LABS: Basophils # (auto) 0.02 K/uL (0-0.2); Basophils % (auto) 0.3 %; Hematocrit (blood only) 40.4 % (37-47); Hemoglobin 13.7 g/dL (12.0-16.0); Immature Granulocytes # (auto) 0.03 K/uL (0.00-0.02); Immature Granulocytes % (auto) 0.5 %; Lymphocytes # (auto) 0.78 K/uL (1.2-3.4); Lymphocytes % (auto) 13.4 %; Mean Corpuscular Hemoglobin 32.9 pg (25-34); Mean Corpuscular Hgb Conc 33.9 g/dL (32-36); Mean Corpuscular Volume 97.1 fL (80-100); Mean Platelet Volume 10.1 fL (7.4-10.4); Monocytes # (auto) 0.12 K/uL (0.11-0.59); Monocytes % (auto) 2.1 %; Neutrophils # (auto) 4.85 K/uL (1.4-6.5); Neutrophils % (auto) 83.7 %; Platelet Count 261 K/uL (130-400); RDW Coefficient of Variation 13.4 % (11.5-14.5); RDW Standard Deviation 47.1 fL (36.4-46.3); Red Blood Count 4.16 M/uL (4.2-5.4)
[2019-09-30 08:14] LABS: Albumin Level 2.9 gm/dl (3.4-5.0); Calcium 8.1 mg/dl (8.5-10.1); Creatinine Clr Calc Pharmacy 35.2 ml/min; Est GFR (African American) 57.6; Est GFR (Non-African American) 49.7; Potassium 3.9 mmol/L (3.5-5.1)
[2019-09-30] MEDS: POTASSIUM CHLORIDE 10 MEQ TABCR PO SCH (08:43)
[2019-09-30] MEDS: CALCIUM 600MG + VIT D 400 IU TAB PO SCH ×2 (08:45→08:47)
[2019-09-30] MEDS: ASPIRIN 81 MG CHEW PO SCH (08:46)
[2019-09-30] MEDS: CEROVITE ADV FORMULA TAB PO SCH ×2 (08:46→21:06)
[2019-09-30] MEDS: METOPROLOL SUCC 50MG EXT REL TAB PO SCH (08:47)
[2019-09-30] MEDS: DOCUSATE SODIUM 100 MG CAP PO SCH ×2 (08:47→21:06)
[2019-09-30] MEDS: CYANOCOBALAMIN 500 MCG TABLET (VITAMIN B-12) PO SCH (08:48)
[2019-09-30] MEDS: GABAPENTIN 100 MG CAP PO SCH ×2 (08:48→21:06)
[2019-09-30] MEDS: PANTOprazole 40 MG TAB PO SCH ×2 (08:49→21:06)
[2019-09-30] MEDS: ATORVASTATIN 40 MG TAB PO SCH (08:49)
[2019-09-30] MEDS: ARTIFICIAL TEARS OP SCH ×2 (08:53→21:06)
[2019-09-30] MEDS ORDERED: PERFLUTREN LIPID MICROSPHERE (DEFINITY) IV ONE (09:29)
--- NOTE | 2019-09-30 10:09 | Electrocardiogram Report ---
Test Reason : Blood Pressure : / mmHG Vent. Rate : 104 BPM Atrial Rate : 104 BPM P-R Int : 128 ms QRS Dur : 110 ms QT Int : 394 ms P-R-T Axes : 063 007 -13 degrees QTc Int : 518 ms Sinus tachycardia with Premature atrial complexes Right bundle branch block Borderline Criteria for Old Inferior infarct Abnormal ECG When compared with ECG of 02-JUN-2013 10:12, Premature atrial complexes are now Present Vent. rate has increased BY 39 BPM Right bundle branch block is now Present Borderline Criteria for Inferior infarct are now Present Confirmed by Oren Baird ([id number]) on 09/30/2019 10:09:13 AM Referred By: [facility] Confirmed By:Oren Baird
[2019-09-30] MEDS: FUROSEMIDE 40 MG TAB PO SCH (10:50)
[2019-09-30] MEDS: LIDOCAINE 5% 1 PATCH TD SCH (10:50)
--- NOTE | 2019-09-30 10:50 | XCELERA ---
[id number] \\[id number]\[id number]_Reports\[id number]___[id number]
--- NOTE | 2019-09-30 11:25 | Electrocardiogram Report ---
Test Reason : Blood Pressure : / mmHG Vent. Rate : 092 BPM Atrial Rate : 092 BPM P-R Int : 122 ms QRS Dur : 106 ms QT Int : 412 ms P-R-T Axes : 024 060 004 degrees QTc Int : 509 ms Poor data quality, interpretation may be adversely affected Sinus rhythm with Premature atrial complexes Low voltage QRS Right bundle branch block with repolarization abnormality Abnormal ECG When compared with ECG of 29-SEP-2019 18:38, Borderline Criteria for Inferior infarct are no longer Present Nonspecific T wave abnormality has replaced inverted T waves in Inferior leads Confirmed by Oren Baird ([id number]) on 09/30/2019 11:25:35 AM Referred By: [facility] Confirmed By:Oren Baird
--- NOTE | 2019-09-30 13:24 | Hospitalist Progress Note ---
Date of Service September 30, 2019 Assessment & Plan (1) Acute respiratory failure with hypoxia: Acute respiratory failure with hypoxia/bronchopneumonia/aspiration pneumonia- Admit to monitored bed. DuoNebs 4 times daily and every 2 hours PRN. Vancomycin IV per pharmacokinetic monitoring. Zosyn IV per pharmacokinetic monitoring. Guaifenesin with dextromethorphan 10 mils p.o. every 4 hours as needed. Pulmicort Respules 0.5 mg inhaled twice daily. Methylprednisolone 125 mg IV on admission and 40 mg IV every 8 hours. Flu neg CTA neg for PE, noted for likely aspiration PNA (2) Bronchopneumonia: See above (3) Aspiration pneumonia: See above Noted coughing/choking with eating while in room today ST eval pending (4) Elevated troponin: Elevated troponin/CAD/history of coronary artery stent- Troponin mildly elevated at 0.071 upon admission, repeat at 0.08 Likely type II DE, supply demand mismatch. ECHO noted for EF >70%, but with RV pressure elevation and moderate dilation with moderate to severe RVH Continue aspirin 81 mg daily, metoprolol succinate 50 mg p.o. daily. Hold furosemide and potassium for now. Cardiology c/s pending (5) CAD (coronary artery disease): See above (6) Dyslipidemia: Continue atorvastatin 40 mg daily (7) GERD (gastroesophageal reflux disease): Omeprazole 20 mg p.o. twice daily (8) Neurapraxia of peripheral nerve: Continue gabapentin 100 mg p.o. 3 times daily (9) DVT prophylaxis: Heparin, SCDs for DVT proph Subjective Pt states she feels better. Her breathing is better but still a bit SOB. She denies any pain at present. Nursing notes that pt had a few second run of afib earlier that corrected spontaneously. No prior hx of afib. Pt denies fever, chest pain, abd pain, n/v/c/d, LE pain or swelling. Review of Systems Review of Systems: Pertinent positives and negatives reviewed in HPI--all others negative Physical Exam Constitutional: WD/WN, vitals as above Eyes: normal visual lao by confrontation and + anicteric sclerae Neck: normal visual inspection and trachea midline Respiratory: normal respiratory effort and + cough (noted with eating); no respiratory distress Auscultation: + wheezes Cardiovascular: Rate/Rhythm: regular rate and regular rhythm Gastrointestinal (Abdomen): Inspection/Auscultation: abdomen not distended Percussion/Palpation: abdomen soft; abdomen nontender Musculoskeletal: Head/Neck/Chest: normocephalic and head atraumatic negative for edema, peripheral pulses intact Skin: no rashes, warm and dry Neurologic: awake; not confused Speech / Cognition: normal speech Psychiatric: A+Ox3, euthymic affect Results & Data ([facility]) Vital Signs (Past 12 Hours) Vital Signs Temp Pulse Pulse Pulse Resp BP Pulse Ox 09/30/19 11:37 92 H 18 94 09/30/19 11:23 36.4 C L 96 H 19 110/68 93 09/30/19 08:00 83 09/30/19 07:34 36.6 C 102 H 20 154/65 H 94 09/30/19 07:10 92 H 18 94 09/30/19 03:46 36.5 C 103 H 20 125/69 94 PG Care Time/CCT Total # of Minutes Spent Total Time Spent with Patient: Total time spent is greater than 50% in coordination of care (as documented) at patient's floor/unit and/or counseling patient: Coding Level of Care Code 96671 Subseq Hosp Care Lvl 3 Diagnoses Acute respiratory failure with hypoxia J96.01 Bronchopneumonia J18.0 Aspiration pneumonia J69.0 Elevated troponin R79.89 CAD (coronary artery disease) I25.10 Dyslipidemia E78.5 GERD (gastroesophageal reflux disease) K21.9 Neurapraxia of peripheral nerve T14.8XXA DVT prophylaxis Z29.9
[2019-09-30] MEDS: HEPARIN SOD 5,000 UNIT/0.5 ML VIAL SQ SCH ×2 (14:30→21:07)
--- NOTE | 2019-09-30 15:42 | Cardiology Consultation ---
Date of Consultation September 30, 2019 Assessment & Plan (1) Elevated troponin: (2) Acute respiratory failure with hypoxia: (3) Aspiration pneumonia: (4) CAD (coronary artery disease): (5) H/O heart artery stent: Elderly woman admitted with bronchopneumonia and respiratory distress, noted to have mildly elevated troponin but had no chest pain or ECG changes to suggest ongoing myocardial ischemia. Echocardiogram suggests significant right heart chronic findings, suspect that her troponin elevation was secondary to acute right heart strain in the face of respiratory distress. Since her troponin has normalized and she has not noted chest pain at any time, continue with aggressive management of her underlying pulmonary process as the mainstay of treatment. Although she does have a history of coronary artery disease, there is no indication that this is an acute coronary syndrome requiring specific intervention. Would continue her chronic CAD management with aspirin 81 mg daily, atorvastatin 40 mg daily, and metoprolol succinate 50 mg daily. We will follow along with you while she is hospitalized. Case discussed with Dr. Gongora. History of Present Illness Reason for Consultation: Elevated troponin Requesting Physician: Luke Valdez MD Attending Physician: Miriam Gongora DO History of Present Illness 89-year-old woman with known coronary artery disease (prior PCI with stenting), primarily [place] Islander-speaking, resident of [facility], who was recently diagnosed with pneumonia and treated with antibiotics/prednisone, but due to progressive dyspnea and wheezing with prominent cough she was admitted yesterday for further management. Although her cough is prominent and paroxysmal, she denies any chest pain. She does have dyspnea on exertion but not at rest. Upon admission yesterday her troponin was noted to be mildly elevated (0.071), iva slightly further (0.087), before returning to normal by today (0.044). Serial ECG showed sinus tachycardia with PACs, right bundle branch block, borderline criteria for old inferior infarct transiently present but then disappeared on subsequent ECG, no significant ST deviation noted. Echocardiogram showed hyperdynamic LV with normal wall motion. The right ventricle was moderately dilated with moderate to severe RVH and moderately reduced RV systolic function. At the time of my evaluation, the patient had intermittent paroxysmal coughing, but was otherwise asymptomatic. Allergies Allergy/AdvReac Type Severity Reaction Status Date / Time pregabalin [From Lyrica] Allergy Unknown Unknown Verified 09/29/19 21:46 Home Medications Home Medications Medication Instructions Recorded Confirmed Type atorvastatin 40 mg PO DAILY 05/21/19 09/29/19 History bisacodyl [Dulcolax (bisacodyl)] 10 mg IN DIRECTED PRN 05/21/19 09/29/19 History carboxymethylcellulose sodium 1 drp OPB BID 05/21/19 09/29/19 History [Refresh Tears] cyanocobalamin (vitamin B-12) 1,000 mcg PO DAILY 05/21/19 09/29/19 History furosemide 40 mg PO DAILY 05/21/19 09/29/19 History metoprolol succinate 50 mg PO DAILY 05/21/19 09/29/19 History omeprazole 20 mg PO BID 05/21/19 09/29/19 History Lidoderm 4% Patch 2 patch TOPICAL DIRECTED 09/29/19 09/29/19 History acetaminophen [Tylenol] 650 mg PO Q6H PRN MDD 3 GMS 09/29/19 09/29/19 History APAP/24 HOURS albuterol sulfate 2.5 mg INHALATION Q2H PRN 09/29/19 09/29/19 History albuterol sulfate 2.5 mg INHALATION QID 09/29/19 09/29/19 History amoxicillin-pot clavulanate 1 tab PO BID 09/29/19 09/29/19 History aspirin 81 mg PO DAILY 09/29/19 09/29/19 History calcium carbonate-vitamin D3 2 tab PO DAILY 09/29/19 09/29/19 History [Caltrate 600 plus D] carboxymethylcellulose sodium 1 drp OPB DAILY 09/29/19 09/29/19 History [Refresh Tears] dextromethorphan-guaifenesin 1 tab PO Q12H 09/29/19 09/29/19 History [Mucinex DM] docusate sodium 100 mg PO BID 09/29/19 09/29/19 History gabapentin 100 mg PO TID 09/29/19 09/29/19 History ipratropium-albuterol 3 ml INHALATION Q4H PRN 09/29/19 09/29/19 History magnesium hydroxide [Milk of 30 ml PO DIRECTED PRN 09/29/19 09/29/19 History Magnesia] naproxen 250 mg PO Q8H PRN 09/29/19 09/29/19 History ondansetron HCl 4 mg PO Q8H PRN 09/29/19 09/29/19 History oxycodone 5 mg PO Q6H PRN 09/29/19 09/29/19 History polyethylene glycol 3350 17 g PO DAILY PRN 09/29/19 09/29/19 History potassium chloride 30 meq PO DAILY 09/29/19 09/29/19 History prednisone See Rx Instructions .ROUTE .COMPLEX 09/29/19 09/29/19 History sodium phosphates [Fleet Enema] 118 ml IN DIRECTED PRN 09/29/19 09/29/19 History vit C,B-Od-ntawu-lutein-zeaxan 1 cap PO BID 09/29/19 09/29/19 History [PreserVision AREDS-2] Patient History Medical History (Updated 09/30/19 @ 15:44 by Oren Baird MD) CAD (coronary artery disease) (Chronic) "s/p stent placement x 2 2005" Dyslipidemia (Chronic) GERD (gastroesophageal reflux disease) (Chronic) Neurapraxia of peripheral nerve (Acute 2012) UTI (urinary tract infection) Surgical History (Updated 09/30/19 @ 15:44 by Oren Baird MD) H/O foot surgery (Resolved) "L side; pins in ankle and foot" H/O heart artery stent (Resolved 2005) x2 History of cholecystectomy (Resolved) S/P laser trabeculoplasty of eye (Resolved) Family History Family history non-contributory Social History Preferred Language: [place] Communication Ability: Effective Communication Tools: Other Guest Relations Officer Required: Yes Beliefs That Will Affect Care: None marital status: Single Current Living Situation: Rehab Current Living Situation Comment: [facility] current occupational status: retired Other Information That Helps Us Care for You: No Feels Safe at Home: Yes Safety Concerns: Feels Safe At This Time Smoking Status: Never smoker Hx Alcohol Use: No Hx Substance Use: No Physical Exam Physical Exam: Elderly woman appears comfortable, except for when she had paroxysmal coughing. Skin: no ecchymoses or generalized lesions. HEENT: unremarkable. Neck: Jugular venous pulse just above the clavicle, marked increase in respiratory variation. No carotid bruits. Lungs: Diffuse inspiratory and expiratory wheezing (right greater than left). No nasal flaring, intercostal retraction, or abdominal paradox. Cardiac: regular rhythm with frequent ectopy, 2/6 apical systolic murmur radiating to left sternal border, no diastolic murmur or gallop. Abdomen benign. Extremities: no edema, pulses brisk. Neurologic: normal affect, nonfocal. Results & Data Vital Signs (Past 12 Hours) Vital Signs Temp Pulse Pulse Pulse Resp BP BP 09/30/19 15:08 100 H 22 09/30/19 14:53 98.2 F 104 H 24 114/58 L 09/30/19 11:37 92 H 18 09/30/19 11:23 97.5 F L 96 H 19 110/68 09/30/19 08:00 83 09/30/19 07:34 97.9 F 102 H 20 154/65 H 09/30/19 07:10 92 H 18 09/30/19 03:46 97.7 F 103 H 20 125/69 Pulse Ox 09/30/19 15:08 93 09/30/19 14:53 94 09/30/19 11:37 94 09/30/19 11:23 93 09/30/19 08:00 09/30/19 07:34 94 09/30/19 07:10 94 09/30/19 03:46 94 Laboratory Results 09/29/19 09/29/19 09/30/19 18:37 22:35 07:25 Creatinine 1.01 Troponin I 0.071 H* 0.087 H* NT-Pro-B Natriuret Pep 1112 09/30/19 09/30/19 07:27 14:25 Creatinine Troponin I 0.060 H* 0.044 NT-Pro-B Natriuret Pep Diagnostic Findings Echocardiogram showed LVEF of greater than 70%, hyperdynamic ventricle. There was a flattened septum consistent with RV pressure overload. No regional left ventricular wall motion abnormalities. Right ventricle is moderately dilated with moderate to severe RVH and moderately reduced right ventricular systolic function. No obvious valvular disease but the Doppler was technically limited and she did have a moderately dilated left atrium. Initial ECG showed sinus tachycardia with PACs, right bundle branch block, borderline criteria for old inferior infarct. Compared with 2013 study, PACs were new, ventricular rate had increased by 39 bpm, right bundle branch block was new, borderline criteria for inferior infarct were now present. Subsequent ECG showed sinus rhythm with PACs, right bundle branch block with repolarization abnormality. Borderline criteria for old inferior infarct no longer present, nonspecific T wave abnormality replaced inverted T waves in the inferior leads. Chest x-ray showed cardiomegaly with no active disease. Chest CT showed no evidence of pulmonary embolism. There is mild diffuse peribronchial thickening with secretions within the right lower lobe airways. Possible aspiration. PG Care Time/CCT Total # of Minutes Spent Total Time Spent with Patient: Total time spent is greater than 50% in coordination of care (as documented) at patient's floor/unit and/or counseling patient: Coding Level of Care Code 59256 Inpt Consult Level 4 Diagnoses Elevated troponin R79.89 Acute respiratory failure with hypoxia J96.01 Aspiration pneumonia J69.0 CAD (coronary artery disease) I25.10 H/O heart artery stent Z95.5
[2019-09-30] MEDS: GUAIFENESIN/DEXTROM SYRUP 200MG/20MG 10ML UDC PO PRN (21:35)
[2019-10-01] MEDS: methylPREDNISolone 40 MG in SYRINGE 0 ML IV SCH ×3 (04:44→22:18)
[2019-10-01] MEDS: HEPARIN SOD 5,000 UNIT/0.5 ML VIAL SQ SCH ×3 (04:44→22:18)
[2019-10-01] MEDS: PIPERACILLIN/TAZOBACTAM 3.375 GM in DEXTROSE 5% 100 ML IV SCH ×2 (04:44→11:58)
[2019-10-01 07:04] LABS: Basophils # (auto) 0.01 K/uL (0-0.2); Basophils % (auto) 0.1 %; Hematocrit (blood only) 37.6 % (37-47); Hemoglobin 12.8 g/dL (12.0-16.0); Immature Granulocytes # (auto) 0.03 K/uL (0.00-0.02); Immature Granulocytes % (auto) 0.4 %; Lymphocytes # (auto) 0.92 K/uL (1.2-3.4); Lymphocytes % (auto) 12.3 %; Mean Corpuscular Hemoglobin 32.7 pg (25-34); Mean Corpuscular Volume 95.9 fL (80-100); Mean Platelet Volume 9.9 fL (7.4-10.4); Monocytes # (auto) 0.44 K/uL (0.11-0.59); Monocytes % (auto) 5.9 %; Neutrophils # (auto) 6.06 K/uL (1.4-6.5); Neutrophils % (auto) 81.3 %; Platelet Count 262 K/uL (130-400); RDW Coefficient of Variation 13.3 % (11.5-14.5); RDW Standard Deviation 46.4 fL (36.4-46.3); Red Blood Count 3.92 M/uL (4.2-5.4); White Blood Count 7.46 K/uL (4.8-10.8)
[2019-10-01] MEDS: BUDESONIDE 0.5 MG/2 ML VIAL (PULMICORT) NEB SCH ×2 (07:04→19:27)
[2019-10-01] MEDS: ALBUT/IPRATROP 3MG/0.5MG NEB 3 ML VIAL NEB SCH ×4 (07:04→19:27)
[2019-10-01 07:40] LABS: Albumin Level 2.8 gm/dl (3.4-5.0); BUN Creatinine Ratio 27.3 (10-20); Calcium 8.1 mg/dl (8.5-10.1); Creatinine Clr Calc Pharmacy 37.9 ml/min; Est GFR (African American) 62.8; Est GFR (Non-African American) 54.2; Potassium 4.2 mmol/L (3.5-5.1)
[2019-10-01] MEDS: FUROSEMIDE 40 MG TAB PO SCH (08:25)
[2019-10-01] MEDS: GABAPENTIN 100 MG CAP PO SCH ×3 (08:25→22:18)
[2019-10-01] MEDS: PANTOprazole 40 MG TAB PO SCH ×2 (08:26→22:18)
[2019-10-01] MEDS: CYANOCOBALAMIN 500 MCG TABLET (VITAMIN B-12) PO SCH (08:26)
[2019-10-01] MEDS: DOCUSATE SODIUM 100 MG CAP PO SCH ×2 (08:27→22:18)
[2019-10-01] MEDS: ATORVASTATIN 40 MG TAB PO SCH (08:27)
[2019-10-01] MEDS: LIDOCAINE 5% 1 PATCH TD SCH (08:27)
[2019-10-01] MEDS: CEROVITE ADV FORMULA TAB PO SCH ×2 (08:27→22:18)
[2019-10-01] MEDS: METOPROLOL SUCC 50MG EXT REL TAB PO SCH (08:28)
[2019-10-01] MEDS: CALCIUM 600MG + VIT D 400 IU TAB PO SCH (08:28)
[2019-10-01] MEDS: POTASSIUM CHLORIDE 10 MEQ TABCR PO SCH (08:29)
[2019-10-01] MEDS: ASPIRIN 81 MG CHEW PO SCH (08:29)
[2019-10-01] MEDS: ARTIFICIAL TEARS OP SCH ×2 (08:30→22:19)
--- NOTE | 2019-10-01 10:11 | Electrocardiogram Report ---
Test Reason : Blood Pressure : / mmHG Vent. Rate : 085 BPM Atrial Rate : 086 BPM P-R Int : 148 ms QRS Dur : 106 ms QT Int : 412 ms P-R-T Axes : 020 044 020 degrees QTc Int : 490 ms Normal sinus rhythm with occasional Premature atrial complexes Low voltage QRS Incomplete right bundle branch block with repolarization abnormality Prolonged QT Abnormal ECG When compared with ECG of 30-SEP-2019 07:11, No significant change Confirmed by Oren Baird ([id number]) on 10/01/2019 10:10:49 AM Referred By: [facility] Confirmed By:Oren Baird
--- NOTE | 2019-10-01 10:27 | Cardiology Progress Note ---
Date of Service October 01, 2019 Assessment & Plan (1) Elevated troponin: (2) Acute respiratory failure with hypoxia: (3) Aspiration pneumonia: (4) CAD (coronary artery disease): (5) H/O heart artery stent: Still suspect that her troponin elevation was secondary to acute right heart strain in the face of respiratory distress (demand ischemia). Since her troponin has normalized and she has not noted chest pain at any time, continue with aggressive management of her underlying pulmonary process as the mainstay of treatment. Although she does have a history of coronary artery disease, there is no indication that this is an acute coronary syndrome requiring specific intervention. Continue aspirin 81 mg daily, atorvastatin 40 mg daily, and metoprolol succinate 50 mg daily. Will sign off, please call if the patient has any change in clinical status or there are any further questions regarding her cardiac care. Thank you for this consultation. Subjective 89-year-old woman with known CAD (prior stenting) admitted 09/29/2019 with p neumonia, transient troponin elevation noted without chest pain or associated ECG changes. Echocardiogram showed right heart findings but no left ventricular wall motion abnormalities. She still has paroxysmal coughing which can be sustained, but she denies any chest pain and notes no dyspnea at rest. Her troponin levels dropped to normal yesterday and her ECG today is stable and shows no dynamic ST changes. Physical Exam Physical Exam: Elderly woman appears comfortable, except for when she had paro xysmal coughing. Skin: no ecchymoses or generalized lesions. HEENT: unremarkable. Neck: Jugular venous pulse just above the clavicle, marked increase in respiratory variation. No carotid bruits. Lungs: Diffuse inspiratory and expiratory wheezing (right greater than left). No nasal flaring, intercostal retraction, or abdominal paradox. Cardiac: regular rhythm with frequent ectopy, 2/6 apical systolic murmur radiating to left sternal border, no diastolic murmur or gallop. Abdomen benign. Extremities: no edema, pulses brisk. Neurologic: normal affect, nonfocal. Results & Data Laboratory Results 09/30/19 09/30/19 07:27 14:25 Troponin I 0.060 H* 0.044 Diagnostic Findings ECG showed sinus rhythm with occasional PACs, incomplete right bundle branch block with repolarization abnormalities (inverted T waves across the precordium), and a mildly prolonged QT interval. Compared with ECG from yesterday, no significant change. PG Care Time/CCT Total # of Minutes Spent Total Time Spent with Patient: Total time spent is greater than 50% in coordination of care (as documented) at patient's floor/unit and/or counseling patient: Coding Level of Care Code 60343 Subseq Hosp Care Lvl 3 Diagnoses Elevated troponin R79.89 Acute respiratory failure with hypoxia J96.01 Aspiration pneumonia J69.0 CAD (coronary artery disease) I25.10 H/O heart artery stent Z95.5
--- NOTE | 2019-10-01 16:02 | Hospitalist Progress Note ---
Date of Service October 01, 2019 Assessment & Plan (1) Acute respiratory failure with hypoxia: Acute respiratory failure with hypoxia/bronchopneumonia/aspiration pneumonia- Admit to monitored bed. DuoNebs 4 times daily and every 2 hours PRN. Started on vanc/zosyn in ED, vanc d/c 09/30, zosyn -> augmentin 10/01 Guaifenesin with dextromethorphan 10 mils p.o. every 4 hours as needed. Pulmicort Respules 0.5 mg inhaled twice daily. Methylprednisolone 125 mg IV on admission and 40 mg IV every 8 hours. 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 ECHO noted for EF >70%, but with RV pressure elevation and moderate dilation with moderate to severe RVH Continue aspirin 81 mg daily, metoprolol succinate 50 mg p.o. daily. Hold furosemide and potassium for now. Cardiology feels more related to pulm status (5) CAD (coronary artery disease): See above (6) Dyslipidemia: Continue atorvastatin 40 mg daily (7) GERD (gastroesophageal reflux disease): Omeprazole 20 mg p.o. twice daily (8) Neurapraxia of peripheral nerve: Continue gabapentin 100 mg p.o. 3 times daily (9) DVT prophylaxis: Heparin, SCDs for DVT proph Subjective Pt continues to have cough that is bothersome. No amanda SOB. Tolerating PO, although some choking at times per nursing. Pt denies fever, chest pain, abd pain, n/v/c/d, LE pain or swelling. Review of Systems Review of Systems: Pertinent positives and negatives reviewed in HPI--all others negative Physical Exam Constitutional: WD/WN, vitals as above Eyes: normal visual lao by confrontation and + anicteric sclerae Neck: normal visual inspection and trachea midline Respiratory: normal respiratory effort and + cough (noted with prolonged speaking); no respiratory distress Auscultation: no wheezes Cardiovascular: Rate/Rhythm: regular rate and regular rhythm Gastrointestinal (Abdomen): Inspection/Auscultation: abdomen not distended Percussion/Palpation: abdomen soft; abdomen nontender Musculoskeletal: Head/Neck/Chest: normocephalic and head atraumatic Skin: no rashes, warm and dry Neurologic: awake; not confused Speech / Cognition: normal speech Psychiatric: A+Ox3, euthymic affect Results & Data ([facility]) Vital Signs (Past 12 Hours) Vital Signs Temp Pulse Pulse Resp BP BP Pulse Ox 10/01/19 15:19 36.5 C 87 20 133/75 90 10/01/19 15:17 88 20 90 10/01/19 11:19 36.5 C 87 22 133/75 97 10/01/19 11:17 89 20 95 10/01/19 08:00 83 10/01/19 07:27 36.6 C 89 19 169/80 H 93 10/01/19 07:04 94 H 22 94 Pulse Ox 10/01/19 15:19 10/01/19 15:17 10/01/19 11:19 10/01/19 11:17 10/01/19 08:00 93 10/01/19 07:27 10/01/19 07:04 PG Care Time/CCT Total # of Minutes Spent Total Time Spent with Patient: Total time spent is greater than 50% in coordination of care (as documented) at patient's floor/unit and/or counseling patient: Coding Level of Care Code 87619 Subseq Hosp Care Lvl 3 Diagnoses Acute respiratory failure with hypoxia J96.01 Bronchopneumonia J18.0 Aspiration pneumonia J69.0 Elevated troponin R79.89 CAD (coronary artery disease) I25.10 Dyslipidemia E78.5 GERD (gastroesophageal reflux disease) K21.9 Neurapraxia of peripheral nerve T14.8XXA DVT prophylaxis Z29.9
[2019-10-01] MEDS: AMOXICILLIN/CLAVULANATE 875 MG TAB PO SCH (16:51)
[2019-10-01] MEDS: GUAIFENESIN/DEXTROM SYRUP 200MG/20MG 10ML UDC PO PRN (22:18)
[2019-10-02] MEDS: HEPARIN SOD 5,000 UNIT/0.5 ML VIAL SQ SCH ×3 (05:47→20:30)
[2019-10-02] MEDS: methylPREDNISolone 40 MG in SYRINGE 0 ML IV SCH ×3 (05:47→20:26)
[2019-10-02 06:52] LABS: Basophils # (auto) 0.02 K/uL (0-0.2); Basophils % (auto) 0.2 %; Hematocrit (blood only) 38.8 % (37-47); Hemoglobin 13.1 g/dL (12.0-16.0); Immature Granulocytes # (auto) 0.06 K/uL (0.00-0.02); Immature Granulocytes % (auto) 0.7 %; Lymphocytes # (auto) 1.66 K/uL (1.2-3.4); Lymphocytes % (auto) 19.5 %; Mean Corpuscular Hemoglobin 32.3 pg (25-34); Mean Corpuscular Hgb Conc 33.8 g/dL (32-36); Mean Corpuscular Volume 95.8 fL (80-100); Mean Platelet Volume 10.3 fL (7.4-10.4); Monocytes # (auto) 0.53 K/uL (0.11-0.59); Monocytes % (auto) 6.2 %; Neutrophils # (auto) 6.26 K/uL (1.4-6.5); Neutrophils % (auto) 73.4 %; Platelet Count 291 K/uL (130-400); RDW Coefficient of Variation 13.4 % (11.5-14.5); RDW Standard Deviation 46.8 fL (36.4-46.3); Red Blood Count 4.05 M/uL (4.2-5.4); White Blood Count 8.53 K/uL (4.8-10.8)
[2019-10-02] MEDS: BUDESONIDE 0.5 MG/2 ML VIAL (PULMICORT) NEB SCH ×2 (07:03→19:03)
[2019-10-02] MEDS: ALBUT/IPRATROP 3MG/0.5MG NEB 3 ML VIAL NEB SCH ×4 (07:03→19:03)
[2019-10-02 07:18] LABS: Albumin Level 2.7 gm/dl (3.4-5.0); BUN Creatinine Ratio 33.4 (10-20); Calcium 8.2 mg/dl (8.5-10.1); Creatinine Clr Calc Pharmacy 38.6 ml/min; Est GFR (African American) 64.4; Est GFR (Non-African American) 55.6; Phosphorus 3.1 mg/dl (2.5-4.9)
[2019-10-02] MEDS: PANTOprazole 40 MG TAB PO SCH ×2 (08:01→20:26)
[2019-10-02] MEDS: GABAPENTIN 100 MG CAP PO SCH ×3 (08:01→20:26)
[2019-10-02] MEDS: CYANOCOBALAMIN 500 MCG TABLET (VITAMIN B-12) PO SCH (08:01)
[2019-10-02] MEDS: FUROSEMIDE 40 MG TAB PO SCH (08:01)
[2019-10-02] MEDS: METOPROLOL SUCC 50MG EXT REL TAB PO SCH (08:01)
[2019-10-02] MEDS: POTASSIUM CHLORIDE 10 MEQ TABCR PO SCH (08:02)
[2019-10-02] MEDS: ASPIRIN 81 MG CHEW PO SCH (08:02)
[2019-10-02] MEDS: AMOXICILLIN/CLAVULANATE 875 MG TAB PO SCH ×2 (08:02→16:48)
[2019-10-02] MEDS: CEROVITE ADV FORMULA TAB PO SCH ×2 (08:03→20:27)
[2019-10-02] MEDS: ATORVASTATIN 40 MG TAB PO SCH (08:03)
[2019-10-02] MEDS: LIDOCAINE 5% 1 PATCH TD SCH (08:03)
[2019-10-02] MEDS: DOCUSATE SODIUM 100 MG CAP PO SCH ×2 (08:03→20:27)
[2019-10-02] MEDS: ARTIFICIAL TEARS OP SCH ×2 (08:54→20:29)
[2019-10-02] MEDS: OXYCODONE HCL IR 5 MG TAB (IMMEDIATE RELEASE) PO PRN (09:01)
[2019-10-02] MEDS: guaiFENesin 600 MG TABCR PO SCH ×2 (16:48→20:26)
--- NOTE | 2019-10-02 17:51 | Hospitalist Progress Note ---
Date of Service October 02, 2019 Assessment & Plan (1) Acute respiratory failure with hypoxia: 2nd to acute bronchitis. some concern of aspiration based on CT findings at admission. no pneumonia thus far seen but will repeat her cxr today to exclude such. either way she has been receiving augmentin and will cover aspiration pneumonia if such is present. cont IV steroids and nebs for bronchitis. (2) Acute bronchitis: no wean on steroids today. cont nebs. add mucinex BID. add incentive yumiko. cont flutter valve. wean O2 as tolerated. (3) Aspiration pneumonia: suspected although recent CT did not show actual pneumonic infiltrates. repeat cxr today. cont augmentin in meantime. (4) Elevated troponin: Troponin mildly elevated at 0.071 upon admission, repeat at 0.08. this was likely myocardial demand ischemia/mismatch rather than ACS. Continue aspirin 81 mg daily, metoprolol succinate 50 mg p.o. daily. 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 3 times daily (9) Chronic kidney disease, stage 3a: baseline CrCl 30s/40s bmp am for stability (10) Cor pulmonale: as seen on echo thus far compensated cxr and CT w/o pulm edema cont BB (11) DVT prophylaxis: Heparin SC PT, OT evals daughter updated by phone 10/02/19 Admission and Anticipated Discharge Date Admission Date: September 29, 2019 Subjective patient states she "feels worse" than yesterday. coughing and wheezing. max assist per nursing staff. eating ok. telemetry - nsr overnight. Review of Systems Constitutional: no fever Respiratory: + cough and + dyspnea Cardiovascular: no chest pain Gastrointestinal: no abdominal pain Physical Exam Constitutional: no acute distress ENMT: external ear and nose normal, oropharynx normal Respiratory: no respiratory distress Auscultation: + crackles (minimal bases) and + wheezes (extensive b/l) Cardiovascular: Rate/Rhythm: regular rate and regular rhythm Heart Sounds: normal S1 and normal S2; no murmur Vessels: + JVD, posterior tibial pulses present and dorsalis pedis pulses present Extremities: no edema Gastrointestinal (Abdomen): normal bowel sounds, soft, nontender, no hepatosplenomegaly Inspection/Auscultation: + abdomen distended (mild ) Psychiatric: Orientation: alert, oriented to person and oriented to place Results & Data ([facility]) Vital Signs (Past 12 Hours) Vital Signs Temp Pulse Resp BP Pulse Ox 10/02/19 15:35 85 18 97 10/02/19 15:32 36.7 C 85 18 119/67 97 10/02/19 11:04 36.3 C L 76 18 148/70 H 100 10/02/19 11:03 81 18 94 10/02/19 07:49 36.3 C L 74 18 171/81 H 91 10/02/19 07:04 84 18 91 Laboratory Results Laboratory Results - last 24 hr 10/02/19 10/02/19 06:19 06:19 WBC 8.53 RBC 4.05 L Hgb 13.1 Hct 38.8 MCV 95.8 MCH 32.3 MCHC 33.8 RDW Std Deviation 46.8 H RDW Coeff of Noa 13.4 Plt Count 291 MPV 10.3 Immature Gran % (Auto) 0.7 Neut % (Auto) 73.4 Lymph % (Auto) 19.5 [place] % (Auto) 6.2 Eos % (Auto) 0.0 Baso % (Auto) 0.2 Immature Gran # (Auto) 0.06 H Neut # (Auto) 6.26 Lymph # (Auto) 1.66 [place] # (Auto) 0.53 Eos # (Auto) 0.00 Baso # (Auto) 0.02 Sodium 141 Potassium 4.0 Chloride 109 H Carbon Dioxide 27 Anion Gap 5.0 BUN 31 H Creatinine 0.92 Est Cr Clr Drug Dosing 38.6 Est GFR ( Amer) 64.4 Est GFR (Non-Af Amer) 55.6 BUN/Creatinine Ratio 33.4 H Glucose 133 H Calcium 8.2 L Phosphorus 3.1 Albumin 2.7 L PG Care Time/CCT Total # of Minutes Spent Total Time Spent with Patient: Total time spent is greater than 50% in coordination of care (as documented) at patient's floor/unit and/or counseling patient: Coding Level of Care Code 26201 Subseq Hosp Care Lvl 2 Diagnoses Acute respiratory failure with hypoxia J96.01 Acute bronchitis J20.9 Aspiration pneumonia J69.0 Elevated troponin R79.89 CAD (coronary artery disease) I25.10 Dyslipidemia E78.5 GERD (gastroesophageal reflux disease) K21.9 Neurapraxia of peripheral nerve T14.8XXA Chronic kidney disease, stage 3a N18.3 Cor pulmonale I27.81 DVT prophylaxis Z29.9
--- NOTE | 2019-10-02 18:36 | XRay Report ---
XR chest 1V portable HISTORY: 89 years-old Female wheezing, cough acute cough with wheezing COMPARISON: Chest radiograph and CTA chest 09/29/2019 TECHNIQUE: Portable AP view of the chest FINDINGS: Cardiac silhouette is enlarged, unchanged. Calcified plaque of the thoracic aortic arch. Mild bluntin g of the left costophrenic angle with slightly progressed left greater than right bibasilar opacities . No pneumothorax or overt pulmonary edema. Subacute chronic appearing left-sided rib fractures redem onstrated. Degenerative changes of the shoulders and spine. IMPRESSION: 1. Cardiomegaly without overt pulmonary edema. 2. Probable trace left pleural effusion with minimal left greater than right bibasilar opacities sugg estive of atelectasis or pneumonitis. ACT 112: Negative or not required by law. The above report was generated using voice recognition software. It may contain grammatical, syntax o r spelling errors. Electronically signed by: Bonilla Drake M.D. 10/02/2019 6:35 PM
[2019-10-03] MEDS: methylPREDNISolone 40 MG in SYRINGE 0 ML IV SCH ×3 (05:42→18:33)
[2019-10-03] MEDS: HEPARIN SOD 5,000 UNIT/0.5 ML VIAL SQ SCH ×3 (05:42→21:03)
[2019-10-03] MEDS: ALBUT/IPRATROP 3MG/0.5MG NEB 3 ML VIAL NEB SCH ×4 (06:51→20:03)
[2019-10-03] MEDS: BUDESONIDE 0.5 MG/2 ML VIAL (PULMICORT) NEB SCH (06:51)
[2019-10-03 08:08] LABS: BUN Creatinine Ratio 33.1 (10-20); Calcium 8.4 mg/dl (8.5-10.1); Creatinine Clr Calc Pharmacy 41.2 ml/min; Est GFR (African American) 69.9; Est GFR (Non-African American) 60.3; Potassium 4.6 mmol/L (3.5-5.1)
[2019-10-03] MEDS: CALCIUM 600MG + VIT D 400 IU TAB PO SCH (09:04)
[2019-10-03] MEDS: ATORVASTATIN 40 MG TAB PO SCH (09:04)
[2019-10-03] MEDS: CEROVITE ADV FORMULA TAB PO SCH ×2 (09:04→21:03)
[2019-10-03] MEDS: CYANOCOBALAMIN 500 MCG TABLET (VITAMIN B-12) PO SCH (09:04)
[2019-10-03] MEDS: GABAPENTIN 100 MG CAP PO SCH ×3 (09:04→21:02)
[2019-10-03] MEDS: guaiFENesin 600 MG TABCR PO SCH ×2 (09:04→21:02)
[2019-10-03] MEDS: POTASSIUM CHLORIDE 10 MEQ TABCR PO SCH (09:05)
[2019-10-03] MEDS: FUROSEMIDE 40 MG TAB PO SCH (09:05)
[2019-10-03] MEDS: ASPIRIN 81 MG CHEW PO SCH (09:05)
[2019-10-03] MEDS: PANTOprazole 40 MG TAB PO SCH ×2 (09:05→21:02)
[2019-10-03] MEDS: DOCUSATE SODIUM 100 MG CAP PO SCH ×2 (09:05→21:03)
[2019-10-03] MEDS: AMOXICILLIN/CLAVULANATE 875 MG TAB PO SCH ×2 (09:05→16:14)
[2019-10-03] MEDS: LIDOCAINE 5% 1 PATCH TD SCH (09:06)
[2019-10-03] MEDS: METOPROLOL SUCC 50MG EXT REL TAB PO SCH (09:07)
[2019-10-03] MEDS: ARTIFICIAL TEARS OP SCH ×2 (09:15→21:03)
[2019-10-03] MEDS: GUAIFENESIN/DEXTROM SYRUP 200MG/20MG 10ML UDC PO PRN (20:59)
--- NOTE | 2019-10-03 21:38 | Hospitalist Progress Note ---
Date of Service October 03, 2019 Assessment & Plan (1) Acute respiratory failure with hypoxia: ongoing. 2nd to acute bronchitis. some concern of aspiration based on CT findings at admission and cxr yesterday showing mild bibasilar opacities. cont steroids/abx. (2) Acute bronchitis: improved today. wean steroids to q12h. cont nebs. cont mucinex BID. cont flutter valve. wean O2 as tolerated. (3) Aspiration pneumonia: b/l bases. cont augmentin. complete total of 7 days of Rx. today is day #5 of Rx. (4) Elevated troponin: Troponin mildly elevated at 0.071 upon admission, repeat at 0.08. this was likely myocardial demand ischemia/mismatch rather than ACS. Continue aspirin 81 mg daily, metoprolol succinate 50 mg p.o. daily. 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 3 times daily (9) Chronic kidney disease, stage 3a: baseline CrCl 30s/40s bmps have remained stable (10) Cor pulmonale: as seen on echo remains compensated cxr and CT w/o pulm edema cont BB cont lasix (11) DVT prophylaxis: Heparin SC PT, OT evals completed - continue therapies daughter updated by phone 10/02/19 will update her again tomorrow Admission and Anticipated Discharge Date Admission Date: September 29, 2019 Subjective patient sleeping upon arrival. awoke easily. she c/o fatigue (in Vincentian). I utilized the Armenian export sales manager via export sales manager line. unfortunately, despite multiple attempts over 20-25 minutes, the patient was either unable to hear the export sales manager adequately or we had technical difficulties with a poor internet connection. She was able to tell me via the export sales manager that it was September and that it was 2019. I was unable to get other history or ROS because of the above difficulties. Review of Systems Review of Systems: Other (see HPI) Physical Exam Constitutional: no acute distress ENMT: external ear and nose normal, oropharynx normal hearing impaired Respiratory: + cough; no respiratory distress Auscultation: + crackles (minimal bases) and + wheezes (improved today) Cardiovascular: Rate/Rhythm: regular rate and regular rhythm Heart Sounds: normal S1 and normal S2; no murmur Vessels: + JVD, posterior tibial pulses present and dorsalis pedis pulses present Extremities: no edema Gastrointestinal (Abdomen): normal bowel sounds, soft, nontender, no hepatosplenomegaly Inspection/Auscultation: + abdomen distended (mild ) Psychiatric: Orientation: alert, oriented to person, oriented to place and oriented to time Results & Data ([facility]) Vital Signs (Past 12 Hours) Vital Signs Temp Pulse Resp BP Pulse Ox 10/03/19 20:05 80 22 91 10/03/19 16:03 36.5 C 91 H 19 125/77 96 10/03/19 15:14 84 18 92 10/03/19 11:14 36.3 C L 81 20 116/69 100 10/03/19 11:05 76 17 94 Laboratory Results Laboratory Results - last 24 hr 10/03/19 06:49 Sodium 139 Potassium 4.6 Chloride 106 Carbon Dioxide 27 Anion Gap 5.0 BUN 29 H Creatinine 0.86 Est Cr Clr Drug Dosing 41.2 Est GFR ( Amer) 69.9 Est GFR (Non-Af Amer) 60.3 BUN/Creatinine Ratio 33.1 H Glucose 110 H Calcium 8.4 L PG Care Time/CCT Total # of Minutes Spent Total Time Spent with Patient: Total time spent is greater than 50% in coordination of care (as documented) at patient's floor/unit and/or counseling patient: Coding Level of Care Code 66539 Subseq Hosp Care Lvl 2 Diagnoses Acute respiratory failure with hypoxia J96.01 Acute bronchitis J20.9 Aspiration pneumonia J69.0 Elevated troponin R79.89 CAD (coronary artery disease) I25.10 Dyslipidemia E78.5 GERD (gastroesophageal reflux disease) K21.9 Neurapraxia of peripheral nerve T14.8XXA Chronic kidney disease, stage 3a N18.3 Cor pulmonale I27.81 DVT prophylaxis Z29.9
[2019-10-04] MEDS: methylPREDNISolone 40 MG in SYRINGE 0 ML IV SCH (04:44)
[2019-10-04] MEDS: HEPARIN SOD 5,000 UNIT/0.5 ML VIAL SQ SCH ×3 (04:48→21:08)
[2019-10-04] MEDS: ALBUT/IPRATROP 3MG/0.5MG NEB 3 ML VIAL NEB SCH ×4 (07:33→20:22)
[2019-10-04] MEDS: DOCUSATE SODIUM 100 MG CAP PO SCH ×2 (08:09→21:10)
[2019-10-04] MEDS: ATORVASTATIN 40 MG TAB PO SCH (08:09)
[2019-10-04] MEDS: GABAPENTIN 100 MG CAP PO SCH ×3 (08:09→21:08)
[2019-10-04] MEDS: CALCIUM 600MG + VIT D 400 IU TAB PO SCH (08:09)
[2019-10-04] MEDS: guaiFENesin 600 MG TABCR PO SCH ×2 (08:10→21:11)
[2019-10-04] MEDS: METOPROLOL SUCC 50MG EXT REL TAB PO SCH (08:10)
[2019-10-04] MEDS: AMOXICILLIN/CLAVULANATE 875 MG TAB PO SCH ×2 (08:10→16:50)
[2019-10-04] MEDS: FUROSEMIDE 40 MG TAB PO SCH (08:10)
[2019-10-04] MEDS: CYANOCOBALAMIN 500 MCG TABLET (VITAMIN B-12) PO SCH (08:11)
[2019-10-04] MEDS: POTASSIUM CHLORIDE 10 MEQ TABCR PO SCH (08:11)
[2019-10-04] MEDS: ASPIRIN 81 MG CHEW PO SCH (08:11)
[2019-10-04] MEDS: PANTOprazole 40 MG TAB PO SCH ×2 (08:11→21:08)
[2019-10-04] MEDS: LIDOCAINE 5% 1 PATCH TD SCH (08:12)
[2019-10-04] MEDS: CEROVITE ADV FORMULA TAB PO SCH ×2 (08:12→21:08)
[2019-10-04] MEDS: ARTIFICIAL TEARS OP SCH ×2 (08:13→21:06)
[2019-10-04] MEDS: BENZONATATE 100 MG CAPSULE PO SCH ×2 (14:54→21:08)
[2019-10-04] MEDS: methylPREDNISolone 30 MG in SYRINGE 0 ML IV SCH (16:50)
[2019-10-04] MEDS: GUAIFENESIN/DEXTROM SYRUP 200MG/20MG 10ML UDC PO PRN (19:31)
--- NOTE | 2019-10-04 19:52 | Hospitalist Progress Note ---
Date of Service October 04, 2019 Assessment & Plan (1) Acute respiratory failure with hypoxia: nearly resolved. almost off of O2. 2nd to acute bronchitis. some concern of aspiration based on CT findings at admission and cxr showing mild bibasilar opacities which might suggest a mild pneumonia. cont steroids/abx. (2) Acute bronchitis: cont to improve. wean steroids to 30mg IV q12h. can likely wean to PO prednisone tomorrow. cont nebs. cont mucinex BID. cont flutter valve. wean O2 as tolerated. add tessalon TID. (3) Aspiration pneumonia: b/l bases. cont augmentin. complete total of 7 days of Rx. today is day #6 of Rx. (4) Elevated troponin: Troponin mildly elevated at 0.071 upon admission, repeat at 0.08. this was likely myocardial demand ischemia/mismatch rather than ACS. Continue aspirin 81 mg daily, metoprolol succinate 50 mg p.o. daily. (5) CAD (coronary artery disease): See above in "troponin" (6) Dyslipidemia: Continue atorvastatin 40 mg daily (7) GERD (gastroesophageal reflux disease): PPI twice daily no issues (8) Neurapraxia of peripheral nerve: Continue gabapentin 100 mg TID (9) Chronic kidney disease, stage 3a: baseline CrCl 30s/40s bmps have remained stable during this stay repeat BMP am (10) Cor pulmonale: as seen on echo remains compensated cxr and CT w/o pulm edema cont BB cont lasix as previous (11) DVT prophylaxis: Heparin SC PT, OT evals completed - continue therapies daughter updated by phone 10/02/19 and 10/04/19 daughter inquired if her mother would be candidate for [facility] I explained that she is max assist for most ADLs/activities and likely could not tolerate 3 hours of therapy a day recommended she simply resume PT/OT upon return to [facility] Admission and Anticipated Discharge Date Admission Date: September 29, 2019 Anticipated date of discharge: 10/06/19 Subjective patient very bright-eyed today. just received a bath by staff. pt coughing during the visit. was off O2 during my visit and was tolerating such. she denied any significant complaints but her Croatian is limited (Turkmen is napaimute tongue). unable to elicit full ROS. Review of Systems Review of Systems: Other (unable to elicit full ROS ) Physical Exam Constitutional: no acute distress looks much better today ENMT: external ear and nose normal, oropharynx normal Respiratory: + cough; no respiratory distress Auscultation: + crackles (bases - improved) and + wheezes (mild - improved) Cardiovascular: Rate/Rhythm: regular rate and regular rhythm Heart Sounds: normal S1 and normal S2; no murmur Vessels: posterior tibial pulses present and dorsalis pedis pulses present; no JVD Extremities: no edema Gastrointestinal (Abdomen): normal bowel sounds, soft, nontender, no hepatosplenomegaly Psychiatric: Orientation: alert, oriented to person and oriented to place Results & Data ([facility]) Vital Signs (Past 12 Hours) Vital Signs Temp Pulse Resp BP Pulse Ox Pulse Ox 10/04/19 16:57 93 93 10/04/19 16:08 90 19 94 10/04/19 15:08 36.7 C 85 18 109/68 93 10/04/19 11:17 80 18 91 PG Care Time/CCT Total # of Minutes Spent Total Time Spent with Patient: Total time spent is greater than 50% in coordination of care (as documented) at patient's floor/unit and/or counseling patient: Coding Level of Care Code 87019 Subseq Hosp Care Lvl 2 Diagnoses Acute respiratory failure with hypoxia J96.01 Acute bronchitis J20.9 Aspiration pneumonia J69.0 Elevated troponin R79.89 CAD (coronary artery disease) I25.10 Dyslipidemia E78.5 GERD (gastroesophageal reflux disease) K21.9 Neurapraxia of peripheral nerve T14.8XXA Chronic kidney disease, stage 3a N18.3 Cor pulmonale I27.81 DVT prophylaxis Z29.9
[2019-10-05] MEDS: methylPREDNISolone 30 MG in SYRINGE 0 ML IV SCH (04:14)
[2019-10-05] MEDS: GUAIFENESIN/DEXTROM SYRUP 200MG/20MG 10ML UDC PO PRN ×2 (04:41→16:09)
[2019-10-05] MEDS: HEPARIN SOD 5,000 UNIT/0.5 ML VIAL SQ SCH ×3 (05:32→21:00)
[2019-10-05 06:26] LABS: Calcium 8.7 mg/dl (8.5-10.1); Creatinine Clr Calc Pharmacy 31.2 ml/min; Est GFR (African American) 51.3; Est GFR (Non-African American) 44.3; Potassium 3.9 mmol/L (3.5-5.1)
[2019-10-05] MEDS: ALBUT/IPRATROP 3MG/0.5MG NEB 3 ML VIAL NEB SCH ×4 (07:06→19:05)
[2019-10-05] MEDS: CYANOCOBALAMIN 500 MCG TABLET (VITAMIN B-12) PO SCH (09:38)
[2019-10-05] MEDS: AMOXICILLIN/CLAVULANATE 875 MG TAB PO SCH ×2 (09:38→17:32)
[2019-10-05] MEDS: CEROVITE ADV FORMULA TAB PO SCH ×2 (09:38→20:53)
[2019-10-05] MEDS: CALCIUM 600MG + VIT D 400 IU TAB PO SCH (09:39)
[2019-10-05] MEDS: BENZONATATE 100 MG CAPSULE PO SCH ×3 (09:39→20:51)
[2019-10-05] MEDS: GABAPENTIN 100 MG CAP PO SCH ×3 (09:39→20:52)
[2019-10-05] MEDS: FUROSEMIDE 40 MG TAB PO SCH (09:39)
[2019-10-05] MEDS: POTASSIUM CHLORIDE 10 MEQ TABCR PO SCH (09:40)
[2019-10-05] MEDS: METOPROLOL SUCC 50MG EXT REL TAB PO SCH (09:40)
[2019-10-05] MEDS: ATORVASTATIN 40 MG TAB PO SCH (09:40)
[2019-10-05] MEDS: PANTOprazole 40 MG TAB PO SCH ×2 (09:40→20:51)
[2019-10-05] MEDS: LIDOCAINE 5% 1 PATCH TD SCH (09:41)
[2019-10-05] MEDS: guaiFENesin 600 MG TABCR PO SCH ×2 (09:41→20:53)
[2019-10-05] MEDS: ARTIFICIAL TEARS OP SCH ×2 (09:43→20:50)
[2019-10-05] MEDS: ASPIRIN 81 MG CHEW PO SCH (13:06)
[2019-10-05] MEDS: DOCUSATE SODIUM 100 MG CAP PO SCH ×2 (13:06→20:58)
--- NOTE | 2019-10-05 15:33 | XRay Report ---
TWO VIEW CHEST CLINICAL HISTORY: Bronchitis. FINDINGS: AP and lateral chest radiographs are compared to study dated 10/02/2019. Correlation is made with chest CT dated 09/29/2019. The AP views degraded by patient rotation. The heart is enlarged notin g atherosclerotic calcification of the thoracic aorta. Atelectasis is noted at the lung bases. Chron ic interstitial thickening is similar to previous. No airspace consolidation is seen typical for pneu monia and there is no pleural effusion. There is no pneumothorax. The skeletal structures are osteope erin. There are healed left-sided rib fractures. Degenerative change is noted throughout the thoracic spine. A compression deformity is noted in the upper lumbar region. IMPRESSION: Cardiomegaly with no active disease in the chest. ACT 112: Negative or not required by law. Electronically signed by: Augustin Tucker M.D. 10/05/2019 3:32 PM
[2019-10-05] MEDS: FLUTICASONE/VILANTEROL 100/25MCG 14 PUFFS/INHALER INH SCH (16:06)
[2019-10-05] MEDS ORDERED: FUROSEMIDE 40 MG TAB PO ONE (18:09)
--- NOTE | 2019-10-05 21:36 | Hospitalist Progress Note ---
Date of Service October 05, 2019 Assessment & Plan (1) Acute respiratory failure with hypoxia: nearly resolved. wean o2 off if o2 sats are >90%. 2nd to acute bronchitis. some concern of aspiration based on CT findings at admission and cxr showing mild bibasilar opacities which might suggest a mild pneumonia. cxr obtained today - clear, no infiltrates. cont steroids/abx as below. (2) Acute bronchitis: cont to improve albeit slowly stop IV steroids. start prednisone 40mg once daily in the am tomorrow; slow wean over 7 days. cont nebs. cont mucinex BID. cont flutter valve. add incentive. wean O2 as tolerated. cont tessalon TID but increase to 200mg each dose. extra dose of lasix today 40mg po x 1 but pt does not appear overtly volume overloaded. add breo. (3) Aspiration pneumonia: b/l bases. cont augmentin. complete total of 7 days of Rx. today is day #6-7 of Rx. stop abx after tomorrow AM's dose. (4) Elevated troponin: Troponin mildly elevated at 0.071 upon admission, repeat at 0.08. this was likely myocardial demand ischemia/mismatch rather than ACS. Continue aspirin 81 mg daily, metoprolol succinate 50 mg p.o. daily. (5) CAD (coronary artery disease): See above in "troponin" (6) Dyslipidemia: Continue atorvastatin 40 mg daily (7) GERD (gastroesophageal reflux disease): PPI twice daily no issues (8) Neurapraxia of peripheral nerve: Continue gabapentin 100 mg TID (9) Chronic kidney disease, stage 3a: baseline CrCl 30s/40s bmps have remained stable during this stay repeat BMP today acceptable (10) Cor pulmonale: as seen on echo cxr and CT w/o pulm edema cont BB cont lasix as previous extra dose of lasix today (11) DVT prophylaxis: Heparin SC PT, OT evals completed - continue therapies daughter updated by phone 10/02/19 and 10/04/19 daughter inquired if her mother would be candidate for [facility] I explained that she is max assist for most ADLs/activities and likely could not tolerate 3 hours of therapy a day recommended she simply resume PT/OT upon return to [facility] hopefully back to SNF either tomorrow or Wednesday at latest Admission and Anticipated Discharge Date Admission Date: September 29, 2019 Anticipated date of discharge: 10/06/19 Subjective apparently in the middle of the night last night patient c/o dyspnea o2 sats were checked and were mid to upper 80s her NC o2 was increased this am, during my bedside rounds, she reported no issues she asked "how am I doing?" staff report cough but nonproductive eating very well - 100% of meals large bowel movement today as well Review of Systems Review of Systems: unable to obtain complete ROS but patient denies pain in any location Physical Exam Constitutional: no acute distress ENMT: external ear and nose normal, oropharynx normal Respiratory: + cough; no respiratory distress Auscultation: + wheezes ( mild/moderate); no crackles Cardiovascular: Rate/Rhythm: regular rate and regular rhythm Heart Sounds: normal S1 and normal S2; no murmur Vessels: posterior tibial pulses present and dorsalis pedis pulses present; no JVD Extremities: no edema Gastrointestinal (Abdomen): normal bowel sounds, soft, nontender, no hepatosplenomegaly Psychiatric: Orientation: alert, oriented to person, oriented to place and oriented to time Results & Data ([facility]) Vital Signs (Past 12 Hours) Vital Signs Temp Pulse Resp BP Pulse Ox 10/05/19 19:06 92 H 18 93 10/05/19 16:05 36.4 C L 87 22 131/76 94 10/05/19 15:43 88 18 97 Laboratory Results Laboratory Results - last 24 hr 10/05/19 05:27 Sodium 139 Potassium 3.9 D Chloride 108 H Carbon Dioxide 24 Anion Gap 7.0 BUN 32 H Creatinine 1.11 Est Cr Clr Drug Dosing 31.2 Est GFR ( Amer) 51.3 Est GFR (Non-Af Amer) 44.3 BUN/Creatinine Ratio 29.0 H Glucose 122 H Calcium 8.7 PG Care Time/CCT Total # of Minutes Spent Total Time Spent with Patient: Total time spent is greater than 50% in co ordination of care (as documented) at patient's floor/unit and/or counseling patient: Coding Level of Care Code 35779 Subseq Hosp Care Lvl 2 Diagnoses Acute respiratory failure with hypoxia J96.01 Acute bronchitis J20.9 Aspiration pneumonia J69.0 Elevated troponin R79.89 CAD (coronary artery disease) I25.10 Dyslipidemia E78.5 GERD (gastroesophageal reflux disease) K21.9 Neurapraxia of peripheral nerve T14.8XXA Chronic kidney disease, stage 3a N18.3 Cor pulmonale I27.81 DVT prophylaxis Z29.9
[2019-10-05] MEDS: OXYCODONE HCL IR 5 MG TAB (IMMEDIATE RELEASE) PO PRN (23:54)
[2019-10-06] MEDS: HEPARIN SOD 5,000 UNIT/0.5 ML VIAL SQ SCH ×2 (05:57→13:50)
[2019-10-06 06:23] LABS: BUN Creatinine Ratio 26.3 (10-20); Calcium 8.5 mg/dl (8.5-10.1); Creatinine Clr Calc Pharmacy 27.1 ml/min; Est GFR (African American) 43.2; Est GFR (Non-African American) 37.3; Potassium 3.7 mmol/L (3.5-5.1)
[2019-10-06] MEDS: ALBUT/IPRATROP 3MG/0.5MG NEB 3 ML VIAL NEB SCH ×3 (07:17→16:16)
[2019-10-06] MEDS ORDERED: predniSONE 20 MG TAB PO SCH (09:00)
[2019-10-06] MEDS: BENZONATATE 100 MG CAPSULE PO SCH ×2 (09:01→13:49)
[2019-10-06] MEDS: PANTOprazole 40 MG TAB PO SCH (09:01)
[2019-10-06] MEDS: METOPROLOL SUCC 50MG EXT REL TAB PO SCH (09:02)
[2019-10-06] MEDS: FUROSEMIDE 40 MG TAB PO SCH (09:02)
[2019-10-06] MEDS: POTASSIUM CHLORIDE 10 MEQ TABCR PO SCH (09:02)
[2019-10-06] MEDS: CYANOCOBALAMIN 500 MCG TABLET (VITAMIN B-12) PO SCH (09:03)
[2019-10-06] MEDS: AMOXICILLIN/CLAVULANATE 875 MG TAB PO SCH (09:03)
[2019-10-06] MEDS: ATORVASTATIN 40 MG TAB PO SCH (09:03)
[2019-10-06] MEDS: CALCIUM 600MG + VIT D 400 IU TAB PO SCH (09:04)
[2019-10-06] MEDS: GABAPENTIN 100 MG CAP PO SCH ×2 (09:04→13:50)
[2019-10-06] MEDS: guaiFENesin 600 MG TABCR PO SCH (09:04)
[2019-10-06] MEDS: CEROVITE ADV FORMULA TAB PO SCH (09:04)
[2019-10-06] MEDS: FLUTICASONE/VILANTEROL 100/25MCG 14 PUFFS/INHALER INH SCH (09:05)
[2019-10-06] MEDS: ARTIFICIAL TEARS OP SCH (09:05)
[2019-10-06] MEDS: LIDOCAINE 5% 1 PATCH TD SCH (09:05)
[2019-10-06] MEDS: ASPIRIN 81 MG CHEW PO SCH (09:11)
[2019-10-06] MEDS: DOCUSATE SODIUM 100 MG CAP PO SCH (09:11)
--- NOTE | 2019-10-06 14:57 | Discharge Summary ---
Date of Service date of admission - September 29, 2019 date of discharge - October 06, 2019 Admission HPI Per Admitting Provider The patient is an 89-year-old female resident of [facility], with a past medical history including CAD, GERD, dyslipidemia, stented coronary art chloé, UTI and peripheral nerve apraxia. She was diagnosed with pneumonia earlier in the week and started on Augmentin and prednisone, but has continued to have worsening shortness of breath, cough and wheezing. Principal Diagnosis acute respiratory failure with hypoxia 2nd to acute bronchitis Discharge Exam Constitutional no acute distress ENMT external ear and nose normal, oropharynx normal Respiratory + cough; no respiratory distress Auscultation: + wheezes (mild); no crackles Cardiovascular Rate/Rhythm: regular rate and regular rhythm Heart Sounds: normal S1 and normal S2; no murmur Vessels: posterior tibial pulses present and dorsalis pedis pulses present; no JVD Extremities: no edema Gastrointestinal (Abdomen) normal bowel sounds, soft, nontender, no hepatosplenomegaly Psychiatric Orientation: alert, oriented to person, oriented to place and oriented to time Discharge Data Allergies Allergy/AdvReac Type Severity Reaction Status Date / Time pregabalin [From Lyrica] Allergy Unknown Unknown Verified 09/29/19 21:46 Consultations Cardiology PT, OT speech therapy Ordered Studies CTA chest - IMPRESSION: 1. There is no evidence of central pulmonary embolus in the main, lobar, or proximal segmental pulmonary arteries. 2. There is no airspace consolidation or pleural effusion. 3. Cardiomegaly. 4. There is mild diffuse peribronchial thickening, with fluid/secretions within the right lower lobe airways. Correlate clinically for evidence of bronchitis/reactive airway disease or possibly aspiration. 5. Multinodular goiter is similar to previous. 6. Additional findings as above. echocardiogram - * EF >70% * Right ventricular hypertrophy * mild-moderate right ventricular dysfunction Hospital Course (1) Acute respiratory failure with hypoxia: 2nd to acute bronchitis and some concern of aspiration based on CT findings at admission and cxr showing mild bibasilar opacities. Latter findings suggest a mild pneumonia may have been present. Chest x-ray prior to discharge, however, was free of infiltrates. O2 was weaned off prior to discharge. Patient to complete steroid taper upon transfer back to SNF. (2) Acute bronchitis: Treated with IV/PO steroids, nebs, mucolytics, pulmonary toilet, NC O2, and time. Patient improved slowly during the stay. NC O2 was weaned off. Will complete slow prednisone taper post-discharge. Will take tessalon TID for several days post-discharge. Breo added during this admission; can likely stop this in a few weeks once bronchitis is fully resolved. Suspect inciting culprit was a respiratory virus. (3) Aspiration pneumonia: b/l bases. As seen on CT and some x-rays. Completed 7-day course of augmentin while hospitalized. Chest x-ray just prior to discharge showed resolution of previously seen bibasilar infiltrates. Seen by speech therapy; no overt aspiration was seen. (4) Elevated troponin: Troponin mildly elevated at 0.071 upon admission, repeat at 0.08. This was likely myocardial demand ischemia/mismatch rather than true ACS. Continue aspirin 81 mg daily, metoprolol succinate 50 mg p.o. daily. (5) CAD (coronary artery disease): See above in "troponin" (6) Dyslipidemia: Continue atorvastatin 40 mg daily (7) GERD (gastroesophageal reflux disease): PPI twice daily no issues while hospitalized (8) Neurapraxia of peripheral nerve: Continue gabapentin 100 mg TID (9) Chronic kidney disease, stage 3a: baseline CrCl 30s/40s bmps were stable during this stay discharge Creatinine was 1.2 (10) Cor pulmonale: as seen on echo cxr and CT w/o pulm edema cont beta nellie cont lasix cause of right-sided CHF uncertain Total Time Total Time Spent Total Time Spent (In Minutes): 40 Total Time Includes: Examination of the Patient, Discharge Planning and Medication Reconciliation Discharge Plan Discharge Items Patient Disposition: [facility] Reason For Visit: acute bronchitis, possible pneumonia Discharge Diagnosis: 1. acute bronchitis - resolving 2. suspected bibasilar pneumonia - resolving Activity: Resume your previous activity Non-emergency contact: Primary Care Provider Call non-emergency contact if: you have any medication questions, your symptoms worsen and you have a fever Follow-up/Referrals: Tung Parson [Primary Care Provider] - Diet: Regular Diet Comment: MINCED AND MOIST; ASPIRATION PRECAUTIONS. Addtl Attending Provider Instructions: Patient was treated for acute bronchitis and suspected bibasilar pneumonia, possibly aspiration. O2 was weaned off and patient improved slowly over her stay. Please have patient continue her flutter valve at least every 4 hours while awake and incentive spirometry every hour while awake. Have patient sit in chair as much as possible to help with breathing and pulmonary toilet. Recommend repeat BMP and magnesium level in 4-5 days for stability; results to certified court/medical interpreter. If patient continues with respiratory illnesses / bronchitis problems please refer to the "[facility] [place] [facility]" at [facility]. See occupational therapy co director within 2 days at [facility]. PT/OT/speech therapy upon return to [facility]. Pending Studies at Discharge: No Stand-Alone Forms: My [facility] Skilled Items Patient informed of condition?: Yes DNR: No Discharge Level of Care: Skilled Communicable Disease: No Discharge Prognosis: Stable Lines: None Urinary Catheter: No Medications and DC Order Prescriptions: New benzonatate [Tessalon Perles] 100 mg Capsule 200 mg PO TID 7 Days Qty: 42 RF: 0 Breo Ellipta 100-25 mcg/dose Blister With Device 1 ea inhalation DAILY Qty: 60 RF: 5 guaifenesin [Mucinex] 600 mg Tablet Extended Release 12hr 600 mg PO Q12 10 Days Qty: 20 RF: 0 Continued acetaminophen [Tylenol] 325 mg Tablet 650 mg PO Q6H MDD 3 GMS APAP/24 HOURS PRN (Reason: Fever Or Pain) RF: 0 albuterol sulfate 2.5 mg /3 mL (0.083 %) solution for nebulization 2.5 mg inhalation Q2H PRN (Reason: Shortness Of Breath Or Wheezing) RF: 0 ondansetron HCl 4 mg Tablet 4 mg PO Q8H PRN (Reason: Nausea And Vomiting) RF: 0 naproxen 250 mg Tablet 250 mg PO Q8H PRN (Reason: Inflammation/Moderate Pain) RF: 0 Refresh Tears 0.5 % Drops 1 drp OPB DAILY RF: 0 aspirin 81 mg Tablet,Chewable 81 mg PO DAILY RF: 0 docusate sodium 100 mg Tablet 100 mg PO BID RF: 0 potassium chloride 10 mEq tablet,ER particles/crystals 30 meq PO DAILY RF: 0 PreserVision AREDS-2 [id number] up-phyk-ff-mg Capsule 1 cap PO BID RF: 0 Caltrate 600 plus D 600 mg (1,500 mg)-800 unit Tablet,Chewable 2 tab PO DAILY RF: 0 magnesium hydroxide [Milk of Magnesia] 400 mg/5 mL Suspension 30 ml PO DIRECTED PRN (Reason: Constipation) RF: 0 gabapentin 100 mg capsule 100 mg PO TID RF: 0 polyethylene glycol 3350 17 gram/dose Powder 17 g PO DAILY PRN (Reason: Constipation) RF: 0 Fleet Enema 19-7 gram/118 mL Enema 118 ml AR DIRECTED PRN (Reason: Constipation) RF: 0 Lidoderm 4% Patch 2 patch topical DIRECTED RF: 0 furosemide 40 mg tablet 40 mg PO DAILY Qty: 0 RF: 0 amoxicillin-pot clavulanate 875-125 mg tablet 1 tab PO BID Qty: 2 RF: 0 oxycodone 5 mg Tablet 5 mg PO Q6H PRN (Reason: Pain, Severe) Qty: 10 RF: 0 atorvastatin 40 mg tablet 40 mg PO DAILY RF: 0 metoprolol succinate 50 mg tablet extended release 24 hr 50 mg PO DAILY RF: 0 cyanocobalamin (vitamin B-12) 1,000 mcg Tablet 1,000 mcg PO DAILY RF: 0 Refresh Tears 0.5 % Drops 1 drp OPB BID RF: 0 bisacodyl [Dulcolax (bisacodyl)] 10 mg Suppository 10 mg AR DIRECTED PRN (Reason: Constipation) RF: 0 omeprazole 20 mg capsule,delayed release(DR/EC) 20 mg PO BID RF: 0 Changed prednisone 10 mg Tablet See Rx Instructions .ROUTE .COMPLEX Qty: 19 RF: 0 ipratropium-albuterol 0.5 mg-3 mg(2.5 mg base)/3 mL Solution For Nebulization 3 ml INHALATION Q6H Qty: 1 RF: 2 Discontinued albuterol sulfate 2.5 mg /3 mL (0.083 %) solution for nebulization 2.5 mg inhalation QID RF: 0 Mucinex DM 30-600 mg Tablet Extended Release 12 Hr 1 tab PO Q12H RF: 0 Discharge Orders: Discharge Order (Routine); Ordered 10/06/19 Ordered By: Mark Maya Admission Data Admit Date/Time: 09/29/19 21:19 Attending Provider: Mark Maya Admit Provider: Luke Valdez Primary Care Provider: Tung Parson Other Providers: Luke Valdez ; Dima Aleman Other Interventions: Discharge Summary Assessment (RN) Last Done: 10/06/19 15:47 DC Date/Time DO NOT enter until pt leaves facility: 10/06/19 16:32 Coding Level of Care Code D/C Day Management >30 mins Diagnoses Acute respiratory failure with hypoxia J96.01 Acute bronchitis J20.9 Aspiration pneumonia J69.0 Elevated troponin R79.89 CAD (coronary artery disease) I25.10 Dyslipidemia E78.5 GERD (gastroesophageal reflux disease) K21.9 Neurapraxia of peripheral nerve T14.8XXA Chronic kidney disease, stage 3a N18.3 Cor pulmonale I27.81
== END 2019-10-06 16:32 | DRG 189 ==
LOC: ED 18:05 → SUATTDRO 21:19 → 2S 21:19 → 4W 10-03 15:11

== ENCOUNTER 2019-11-01 19:35 | Inpatient (IN) ==
[2019-11-01] MEDS ORDERED: ALBUT/IPRATROP 3MG/0.5MG NEB 3 ML VIAL NEB ONE (20:04)
[2019-11-01 20:13] LABS: Basophils # (auto) 0.07 K/uL (0-0.2); Basophils % (auto) 0.8 %; Eosinophils # (auto) 0.22 K/uL (0-0.5); Eosinophils % (auto) 2.7 %; Hematocrit (blood only) 39.7 % (37-47); Hemoglobin 13.3 g/dL (12.0-16.0); Immature Granulocytes # (auto) 0.03 K/uL (0.00-0.02); Immature Granulocytes % (auto) 0.4 %; Lymphocytes # (auto) 1.24 K/uL (1.2-3.4); Lymphocytes % (auto) 14.9 %; Mean Corpuscular Hemoglobin 31.9 pg (25-34); Mean Corpuscular Hgb Conc 33.5 g/dL (32-36); Mean Corpuscular Volume 95.2 fL (80-100); Mean Platelet Volume 10.5 fL (7.4-10.4); Monocytes # (auto) 1.03 K/uL (0.11-0.59); Monocytes % (auto) 12.4 %; Neutrophils # (auto) 5.71 K/uL (1.4-6.5); Neutrophils % (auto) 68.8 %; Platelet Count 314 K/uL (130-400); RDW Coefficient of Variation 13.5 % (11.5-14.5); RDW Standard Deviation 46.5 fL (36.4-46.3); Red Blood Count 4.17 M/uL (4.2-5.4)
[2019-11-01 20:24] LABS: Alanine Aminotransferase 16 U/L (12-78); Albumin Level 2.7 gm/dl (3.4-5.0); Aspartate Aminotransferase 13 U/L (15-37); BUN Creatinine Ratio 14.1 (10-20); Blood Urea Nitrogen 14 mg/dl (7-18); Calcium 8.6 mg/dl (8.5-10.1); Carbon Dioxide 23 mmol/L (21-32); Chloride 107 mmol/L (98-107); Creatinine Clr Calc Pharmacy 36.5 ml/min; Est GFR (African American) 57.6; Est GFR (Non-African American) 49.7; Glucose 143 mg/dl (70-99); Magnesium 1.9 mg/dl (1.8-2.4); Potassium 3.9 mmol/L (3.5-5.1); Sodium 138 mmol/L (136-145)
[2019-11-01 20:30] LABS: Albumin Globulin Ratio 0.7 (0.9-2); Alkaline Phosphatase 89 U/L (45-117); Bilirubin,Total 0.3 mg/dl (0.2-1); Creatine Kinase 41 U/L (26-192); Creatine Kinase MB < 1.0 ng/ml (0.5-3.6); Globulin 4.1 gm/dl (2.5-4.0); Total Protein 6.8 gm/dl (6.4-8.2); Troponin I < 0.015 ng/ml (0-0.045)
[2019-11-01] MEDS ORDERED: ACETAMINOPHEN 500 MG TAB PO STA (20:41)
[2019-11-01] MEDS ORDERED: SODIUM CHLORIDE 0.9% 1000ML 1,000 ML IV ONE (20:41)
--- NOTE | 2019-11-01 20:43 | XRay Report ---
XR chest 1V portable CLINICAL HISTORY: SEPSIS dyspnea COMPARISON STUDY: 10/05/2019 FINDINGS: Interval development of a parenchymal infiltrate left lung base. Trace left pleural fluid. Lungs otherwise appear clear. Mild stable cardiomegaly. IMPRESSION: Infiltrate left base. Trace left pleural effusion. Mild stable cardiomegaly. ACT 112: Negative or not required by law. The above report was generated using voice recognition software. It may contain grammatical, syntax or spelling errors. Electronically signed by: Nishant Fields M.D. 11/01/2019 8:41 PM
[2019-11-01] MEDS ORDERED: VANCOMYCIN HCL 1,750 MG in SODIUM CHLORIDE 0.9% 500 ML IV ONE (20:47)
[2019-11-01] MEDS ORDERED: PIPERACILLIN/TAZOBACTAM 4.5 GM/120 ML BAG IV ONE (20:47)
[2019-11-01] MEDS ORDERED: LEVOFLOXACIN/D5W 750 MG/150 ML BAG IV STA (20:47)
[2019-11-01] MEDS ORDERED: PIPERACILL/TAZOBAC CONSULT ACTIVE PRN ×2 (20:47→22:51)
[2019-11-01] MEDS ORDERED: VANCOMYCIN CONSULT ACTIVE PRN ×2 (20:47→22:51)
[2019-11-01 21:43] LABS: Influenza A virus by PCR Neg for Influ A (Neg); Influenza B virus by PCR Neg for Influ B (Neg)
--- NOTE | 2019-11-01 21:44 | History & Physical Report ---
Date of Service November 01, 2019 Assessment & Plan (1) Pneumonia: 89yo C female, recent hospitalization for bronchitis presenting with reported fever, productive cough as well as LLL infiltrate. Patient presently afebrile, hemodynamically stable. She has no leukocytosis and negative Procalci tonin and Influenza, not fully convincing for acute PNA -Check BNP -CXR PA and lateral in AM -Empiric coverage with Vanc and Zosyn for now given history, CXR findings and report of fever, recent hospital stay. -Tessalon -Mucinex -Albuterol nebs q 2 hours PRN -Supplemental O2 as needed -Aspiration precautions -Continue home Breo-Ellipta Present on Admission?: Yes (2) CAD (coronary artery disease): Chronic. Stable. No complaint of CP, no evidence of ischemia on EKG -Continue ASA, Metoprolol and Atorvastatin Present on Admission?: Yes (3) Dyslipidemia: Chronic. Stable -Continue Atorvastatin Present on Admission?: Yes (4) GERD (gastroesophageal reflux disease): Chronic. Stable -Continue Omeprazole 20mg po BID Present on Admission?: Yes (5) Neurapraxia of peripheral nerve: Chronic. Stable -Continue Gaapentin 100mg po TID FEN - heplock. Electrolytes WNL. Heart healthy diet as tolerated Ppx - SCDs Code - Full Dispo - Admit to medical floor Present on Admission?: Yes History of Present Illness Chief Complaint: Cough, SOB and Fever Primary Care Provider: [facility] Patient resting comfortably, daughter at bedside. History obtained from daughter as patient is predominantly Qatari speaking. Liz Boston is an 89yo C female with history of CAD/GERD/HLP presenting with cough/SOB and fever. Daughter reports that Fall 2018 the patient was admitted to the MICU in [place] for PNA. She was subsequently discharged to [facility]. She was recently admitted to [facility] 09/29 -10/06/19 with acute respiratory failure with hypoxia thought to be secondary to acute bronchitis and possible aspiration and mild PNA. She was treated with antibiotics, steroids, nebs, mucolytics and supplemental O2. She had a mildly elevated troponin during that admission. Echo with hyperdynamic LV, evidence of RV strain - thought to be secondary to underlying lung disease. CTA was negative for PE. She was discharged home to [facility] on 10/06/19. Her daughter reports that she was doing fairly well until 3-4 days ago when she developed a cough productive of clear/white sputum, unable to sleep due to cough. Also with weakness and chills. Daughter reports audible wheezing at times. [facility] reported a fever of 101 today. No additional complaints - specifically no CP/palpitations/abdominal pain/nausea/vomiting/diarrhea or constipation. Patient resides in [facility]. +sick contacts. Roommate recently diagnose with PNA and is doing well after treatment. Daughter is the only one that visits her. Daughter lives locally, no recent travel and has not been ill. No suspected exposure to Covid-19 given lack of travel history of exposure to high risk individuals. ER Course: Tylenol, Albuterol, Vancomycin, Zosyn Allergies Allergy/AdvReac Type Severity Reaction Status Date / Time pregabalin [From Lyrica] Allergy Unknown Unknown Verified 09/29/19 21:46 Home Medications Home Medications Medication Instructions Recorded Confirmed Type Refresh Tears 1 drp OPB BID 05/21/19 09/29/19 History atorvastatin 40 mg PO DAILY 05/21/19 09/29/19 History cyanocobalamin (vitamin B-12) 1,000 mcg PO DAILY 05/21/19 09/29/19 History metoprolol succinate 50 mg PO DAILY 05/21/19 09/29/19 History omeprazole 20 mg PO BID 05/21/19 09/29/19 History Caltrate 600 plus D 2 tab PO DAILY 09/29/19 09/29/19 History PreserVision AREDS-2 1 cap PO BID 09/29/19 09/29/19 History Refresh Tears 1 drp OPB DAILY 09/29/19 09/29/19 History acetaminophen [Tylenol] 650 mg PO Q6H PRN MDD 3 GMS 09/29/19 09/29/19 History APAP/24 HOURS albuterol sulfate 2.5 mg INHALATION Q2H PRN 09/29/19 09/29/19 History aspirin 81 mg PO DAILY 09/29/19 09/29/19 History docusate sodium 100 mg PO BID 09/29/19 09/29/19 History gabapentin 100 mg PO TID 09/29/19 09/29/19 History magnesium hydroxide [Milk of 30 ml PO DIRECTED PRN 09/29/19 09/29/19 History Magnesia] naproxen 250 mg PO Q8H PRN 09/29/19 09/29/19 History ondansetron HCl 4 mg PO Q8H PRN 09/29/19 09/29/19 History polyethylene glycol 3350 17 g PO DAILY PRN 09/29/19 09/29/19 History potassium chloride 30 meq PO DAILY 09/29/19 09/29/19 History amoxicillin-pot clavulanate 1 tab PO BID #2 tab 10/06/19 09/29/19 Rx fluticasone furoate-vilanterol 1 ea INHALATION DAILY #60 ea 10/06/19 Rx [Breo Ellipta] furosemide 40 mg PO DAILY #0 tab 10/06/19 09/29/19 Rx ipratropium-albuterol 3 ml INHALATION Q6H #1 box 10/06/19 09/29/19 Rx oxycodone 5 mg PO Q6H PRN #10 tab 10/06/19 Rx prednisone See Rx Instructions .ROUTE 10/06/19 09/29/19 Rx .COMPLEX #19 tab lidocaine 1 patch TOPICAL DAILY 11/01/19 11/01/19 History Past Med/Surg History Medical History CAD (coronary artery disease) "s/p stent placement x 2 2005" Dyslipidemia GERD (gastroesophageal reflux disease) Neurapraxia of peripheral nerve (2012) UTI (urinary tract infection) Surgical History H/O foot surgery (Resolved) "L side; pins in ankle and foot" H/O heart artery stent (2005) x2 History of cholecystectomy (Resolved) S/P laser trabeculoplasty of eye (Resolved) Family History Other Family history non-contributory Social History Preferred Language: Latvian Communication Ability: Effective Communication Tools: IPad Magistrate Assistant Required: Yes Beliefs That Will Affect Care: None marital status: Single Current Living Situation: Rehab Current Living Situation Comment: [facility] current occupational status: retired Feels Safe at Home: Yes Smoking Status: Never smoker Hx Alcohol Use: No Hx Substance Use: No Review of Systems Review of Systems: All systems reviewed & are unremarkable except as noted in HPI & below Physical Exam Physical Exam: General: patient resting comfortably, NAD, non-toxic in appearance, AA&O Skin: warm, dry, intact, no rashes or lesions HEENT: NC/AT, PERRL, EOMI, anicteric sclera, conjunctiva without injection, external ear normal to inspection and nontender, nares patent, moist mucus membranes, dentition intact, no oropharyngeal lesions, neck supple, trachea midline, no LAD, no thyromegaly, no JVD Heart: +S1/S2, regular, no m/r/g Lungs: equal air entry bilaterally, +crackles in bilateral bases, no rhonchi/wheezing Abd: +BS, soft, NT/ND, no masses/organomegaly/ascites Ext: warm, 2+ pulses in UE/LE bilaterally, no clubbing/cyanosis or edema Neuro: nonfocal, patient AA&O x 4, speech intact, no facial droop, moving all extremities on command with equal strength 5/5 Results & Data Vital Signs (Past 12 Hours) Vital Signs Temp Pulse Pulse Resp BP BP Pulse Ox 11/01/19 21:24 90 22 140/75 100 11/01/19 20:53 86 30 H 93 11/01/19 19:49 92 11/01/19 19:44 37.4 C 94 H 22 156/75 H 92 Laboratory Results Lab Results 11/01/19 11/01/19 11/01/19 Range/Units 19:45 19:45 19:45 WBC 8.30 (4.8-10.8) K/uL RBC 4.17 L (4.2-5.4) M/uL Hgb 13.3 (12.0-16.0) g/dL Hct 39.7 (37-47) % MCV 95.2 (80-100) fL MCH 31.9 (25-34) pg MCHC 33.5 (32-36) g/dL RDW Std Deviation 46.5 H (36.4-46.3) fL RDW Coeff of Noa 13.5 (11.5-14.5) % Plt Count 314 (130-400) K/uL MPV 10.5 H (7.4-10.4) fL Immature Gran % (Auto) 0.4 % Neut % (Auto) 68.8 % Lymph % (Auto) 14.9 % Ferry % (Auto) 12.4 % Eos % (Auto) 2.7 % Baso % (Auto) 0.8 % Immature Gran # (Auto) 0.03 H (0.00-0.02) K/uL Neut # (Auto) 5.71 (1.4-6.5) K/uL Lymph # (Auto) 1.24 (1.2-3.4) K/uL Ferry # (Auto) 1.03 H (0.11-0.59) K/uL Eos # (Auto) 0.22 (0-0.5) K/uL Baso # (Auto) 0.07 (0-0.2) K/uL PT INR APTT PTT Ratio Sodium 138 (136-145) mmol/L Potassium 3.9 (3.5-5.1) mmol/L Chloride 107 (98-107) mmol/L Carbon Dioxide 23 (21-32) mmol/L Anion Gap 8.0 (3-11) BUN 14 (7-18) mg/dl Creatinine 1.01 (0.6-1.2) mg/dl Est Cr Clr Drug Dosing 36.5 ml/min Est GFR ( Amer) 57.6 Est GFR (Non-Af Amer) 49.7 BUN/Creatinine Ratio 14.1 (10-20) Glucose 143 H (70-99) mg/dl Lactate (0.4-2.0) mmol/L Calcium 8.6 (8.5-10.1) mg/dl Magnesium 1.9 (1.8-2.4) mg/dl Total Bilirubin 0.3 (0.2-1) mg/dl AST 13 L (15-37) U/L ALT 16 (12-78) U/L Alkaline Phosphatase 89 (45-117) U/L Total Creatine Kinase 41 (26-192) U/L CK-MB (CK-2) < 1.0 (0.5-3.6) ng/ml CK/CKMB % Calc TNP Troponin I < 0.015 (0-0.045) ng/ml Total Protein 6.8 (6.4-8.2) gm/dl Albumin 2.7 L (3.4-5.0) gm/dl Globulin 4.1 H (2.5-4.0) gm/dl Albumin/Globulin Ratio 0.7 L (0.9-2) Procalcitonin < 0.05 (0-0.5) ng/ml Influenza Type A (PCR) (Neg) Influenza Type B (PCR) (Neg) 11/01/19 11/01/19 11/01/19 Range/Units 19:45 20:16 20:55 WBC (4.8-10.8) K/uL RBC (4.2-5.4) M/uL Hgb (12.0-16.0) g/dL Hct (37-47) % MCV (80-100) fL MCH (25-34) pg MCHC (32-36) g/dL RDW Std Deviation (36.4-46.3) fL RDW Coeff of Noa (11.5-14.5) % Plt Count (130-400) K/uL MPV (7.4-10.4) fL Immature Gran % (Auto) % Neut % (Auto) % Lymph % (Auto) % Ferry % (Auto) % Eos % (Auto) % Baso % (Auto) % Immature Gran # (Auto) (0.00-0.02) K/uL Neut # (Auto) (1.4-6.5) K/uL Lymph # (Auto) (1.2-3.4) K/uL Ferry # (Auto) (0.11-0.59) K/uL Eos # (Auto) (0-0.5) K/uL Baso # (Auto) (0-0.2) K/uL PT Cancelled INR Cancelled APTT Cancelled PTT Ratio Cancelled Sodium (136-145) mmol/L Potassium (3.5-5.1) mmol/L Chloride (98-107) mmol/L Carbon Dioxide (21-32) mmol/L Anion Gap (3-11) BUN (7-18) mg/dl Creatinine (0.6-1.2) mg/dl Est Cr Clr Drug Dosing ml/min Est GFR ( Amer) Est GFR (Non-Af Amer) BUN/Creatinine Ratio (10-20) Glucose (70-99) mg/dl Lactate 2.2 H* (0.4-2.0) mmol/L Calcium (8.5-10.1) mg/dl Magnesium (1.8-2.4) mg/dl Total Bilirubin (0.2-1) mg/dl AST (15-37) U/L ALT (12-78) U/L Alkaline Phosphatase (45-117) U/L Total Creatine Kinase (26-192) U/L CK-MB (CK-2) (0.5-3.6) ng/ml CK/CKMB % Calc Troponin I (0-0.045) ng/ml Total Protein (6.4-8.2) gm/dl Albumin (3.4-5.0) gm/dl Globulin (2.5-4.0) gm/dl Albumin/Globulin Ratio (0.9-2) Procalcitonin (0-0.5) ng/ml Influenza Type A (PCR) Neg for Influ A (Neg) Influenza Type B (PCR) Neg for Influ B (Neg) 11/01/19 Range/Units 21:30 WBC (4.8-10.8) K/uL RBC (4.2-5.4) M/uL Hgb (12.0-16.0) g/dL Hct (37-47) % MCV (80-100) fL MCH (25-34) pg MCHC (32-36) g/dL RDW Std Deviation (36.4-46.3) fL RDW Coeff of Noa (11.5-14.5) % Plt Count (130-400) K/uL MPV (7.4-10.4) fL Immature Gran % (Auto) % Neut % (Auto) % Lymph % (Auto) % Ferry % (Auto) % Eos % (Auto) % Baso % (Auto) % Immature Gran # (Auto) (0.00-0.02) K/uL Neut # (Auto) (1.4-6.5) K/uL Lymph # (Auto) (1.2-3.4) K/uL Ferry # (Auto) (0.11-0.59) K/uL Eos # (Auto) (0-0.5) K/uL Baso # (Auto) (0-0.2) K/uL PT 11.7 INR 1.1 APTT 25.9 PTT Ratio 0.9 Sodium (136-145) mmol/L Potassium (3.5-5.1) mmol/L Chloride (98-107) mmol/L Carbon Dioxide (21-32) mmol/L Anion Gap (3-11) BUN (7-18) mg/dl Creatinine (0.6-1.2) mg/dl Est Cr Clr Drug Dosing ml/min Est GFR ( Amer) Est GFR (Non-Af Amer) BUN/Creatinine Ratio (10-20) Glucose (70-99) mg/dl Lactate (0.4-2.0) mmol/L Calcium (8.5-10.1) mg/dl Magnesium (1.8-2.4) mg/dl Total Bilirubin (0.2-1) mg/dl AST (15-37) U/L ALT (12-78) U/L Alkaline Phosphatase (45-117) U/L Total Creatine Kinase (26-192) U/L CK-MB (CK-2) (0.5-3.6) ng/ml CK/CKMB % Calc Troponin I (0-0.045) ng/ml Total Protein (6.4-8.2) gm/dl Albumin (3.4-5.0) gm/dl Globulin (2.5-4.0) gm/dl Albumin/Globulin Ratio (0.9-2) Procalcitonin (0-0.5) ng/ml Influenza Type A (PCR) (Neg) Influenza Type B (PCR) (Neg) Diagnostic Findings XR chest 1V portable CLINICAL HISTORY: SEPSIS dyspnea COMPARISON STUDY: 10/05/2019 FINDINGS: Interval development of a parenchymal infiltrate left lung base. Trace left pleural fluid. Lungs otherwise appear clear. Mild stable cardiomegaly. IMPRESSION: Infiltrate left base. Trace left pleural effusion. Mild stable cardiomegaly. ACT 112: Negative or not required by law. The above report was generated using voice recognition software. It may contain grammatical, syntax or spelling errors. Electronically signed by: Nishant Fields M.D. 11/01/2019 8:41 PM Dictated: 11/01/192040 ECG Additional Comments: The study shows NSR at 88bpm, normal axis, MS=485, CEN=030, RBB, SOk=079, No acute ischemic changes Code Status & VTE Plan Code Status FULL VTE Prophylaxis Plan VTE Prophylaxis will be ordered: Yes PG Care Time/CCT Total # of Minutes Spent Total Time Spent with Patient: Total time spent is greater than 50% in coordi nation of care (as documented) at patient's floor/unit and/or counseling patient: Coding Level of Care Code 44243 Initial Inpt Care Lvl 3 Diagnoses Pneumonia J18.9 Pneumonia type: due to unspecified organism Laterality: left Lung location: lower lobe of lung CAD (coronary artery disease) I25.10 Coronary Disease-Associated Artery/Lesion type: [place] artery [place] vs. transplanted heart: [place] heart Associated angina: without angina Dyslipidemia E78.5 GERD (gastroesophageal reflux disease) K21.9 Esophagitis presence: esophagitis presence not specified Neurapraxia of peripheral nerve T14.8XXA (1) Pneumonia Pneumonia type: due to unspecified organism Laterality: left Lung location: lower lobe of lung Qualified Code(s): J18.9 - Pneumonia, unspecified organism (2) CAD (coronary artery disease) Coronary Disease-Associated Artery/Lesion type: [place] artery [place] vs. transplanted heart: [place] heart Associated angina: without angina Qualified Code(s): I25.10 - Atherosclerotic heart disease of [place] coronary artery without angina pectoris (3) GERD (gastroesophageal reflux disease) Esophagitis presence: esophagitis presence not specified Qualified Code(s): K21.9 - Gastro-esophageal reflux disease without esophagitis
[2019-11-01 21:52] LABS: INR 1.1 (0.9-1.1); Partial Thromboplastin Ratio 0.9; Partial Thromboplastin Time 25.9 Seconds (21.0-31.0); Prothrombin Time 11.7 Seconds (9.0-12.0)
[2019-11-01] MEDS ORDERED: VANCOMYCIN HCL 1,000 MG in SODIUM CHLORIDE 0.9% 250 ML IV SCH (22:51)
[2019-11-01] MEDS ORDERED: DOCUSATE SODIUM 100 MG CAP PO PRN (22:51)
[2019-11-01] MEDS ORDERED: MAGNESIUM HYDROXIDE SUSP 30 ML UDC PO PRN (22:51)
[2019-11-01] MEDS ORDERED: ALBUTEROL 0.5% NEB SOLN 2.5 MG/0.5 ML VIAL NEB PRN (22:51)
[2019-11-01] MEDS ORDERED: POLYETHYLENE (MIRALAX) 17 GM PACK PO PRN (22:51)
[2019-11-01] MEDS ORDERED: ONDANSETRON INJ 2 MG/ML 2 ML VIAL IV PRN (22:51)
[2019-11-01 23:19] LABS: NT Pro B Type Natriuretic Pept 330 pg/ml (0-1800); Phosphorus 3.1 mg/dl (2.5-4.9)
[2019-11-01] MEDS ORDERED: OXYCODONE HCL IR 5 MG TAB (IMMEDIATE RELEASE) PO PRN (23:20)
--- NOTE | 2019-11-02 01:07 | Emergency Department Note ---
Entered by Crissy Phan acting as a scribe for History of Present Illness General Chief complaint: Fever Stated complaint: FEVER Time Seen by Provider: 11/01/19 19:42 Source: family Mode of arrival: ambulatory Limitations: language barrier History of Present Illness Onset (ago): day(s) 1 Radiation: non-radiation Pain Consistency: + constant Associated symptoms: + cough and + other (-abdominal pain) Treatments prior to arrival: none The patient is an 89 year old female who presents to the ED with complaints of a fever. She is accompanied by her daughter who is her compensation and benefits manager as she speaks mostly Swedish. Her daughter states she was here last month for pneumonia. The patient has been coughing for the past few days so earlier today the daughter checked her temperature and it was normal, but this evening she was called and t old the patient had a fever and that they were going to call EMS to bring her to the ED. Her daughter notes she was getting nebulizer treatments immediately after the pneumonia and they seemed to help. The patient denies any abdominal pain. Home Medications Home Medications Medication Instructions Recorded Confirmed Type Refresh Tears 1 drp OPB BID 05/21/19 11/01/19 History atorvastatin 40 mg PO DAILY 05/21/19 11/01/19 History cyanocobalamin (vitamin B-12) 1,000 mcg PO DAILY 05/21/19 11/01/19 History metoprolol succinate 50 mg PO DAILY 05/21/19 11/01/19 History omeprazole 20 mg PO BID 05/21/19 11/01/19 History Caltrate 600 plus D 2 tab PO DAILY 09/29/19 11/01/19 History PreserVision AREDS-2 1 cap PO BID 09/29/19 11/01/19 History acetaminophen [Tylenol] 650 mg PO Q6H PRN MDD 3 GMS 09/29/19 11/01/19 History APAP/24 HOURS aspirin 81 mg PO DAILY 09/29/19 11/01/19 History docusate sodium 100 mg PO BID 09/29/19 11/01/19 History gabapentin 100 mg PO TID 09/29/19 11/01/19 History magnesium hydroxide [Milk of 30 ml PO DIRECTED PRN 09/29/19 11/01/19 History Magnesia] naproxen 250 mg PO Q8H PRN 09/29/19 11/01/19 History ondansetron HCl 4 mg PO Q8H PRN 09/29/19 11/01/19 History polyethylene glycol 3350 17 g PO DAILY PRN 09/29/19 11/01/19 History potassium chloride 30 meq PO DAILY 09/29/19 11/01/19 History fluticasone furoate-vilanterol 1 ea INHALATION DAILY #60 ea 10/06/19 11/01/19 Rx [Breo Ellipta] furosemide 40 mg PO DAILY #0 tab 10/06/19 11/01/19 Rx oxycodone 5 mg PO Q6H PRN #10 tab 10/06/19 11/01/19 Rx cholecalciferol (vitamin D3) 2,000 unit PO DAILY 11/01/19 11/01/19 History lidocaine 1 patch TOPICAL DAILY 11/01/19 11/01/19 History Allergies Allergy/AdvReac Type Severity Reaction Status Date / Time pregabalin [From Lyrica] Allergy Unknown Unknown Verified 11/01/19 22:37 Past Med/Surg History Medical History (Updated 11/02/19 @ 01:06 by Modesto Prado MD) CAD (coronary artery disease) "s/p stent placement x 2 2005" Dyslipidemia GERD (gastroesophageal reflux disease) Neurapraxia of peripheral nerve (2012) UTI (urinary tract infection) Surgical History H/O foot surgery (Resolved) "L side; pins in ankle and foot" H/O heart artery stent (2005) x2 History of cholecystectomy (Resolved) S/P laser trabeculoplasty of eye (Resolved) Family History Other Family history non-contributory Social History Preferred Language: Georgian Communication Ability: Impaired Communication Tools: IPad System Support Technician Required: Yes Beliefs That Will Affect Care: None marital status: Single Current Living Situation: Rehab Current Living Situation Comment: [facility] current occupational status: retired Feels Safe at Home: Yes Smoking Status: Never smoker Hx Alcohol Use: No Hx Substance Use: No Review of Systems See HPI for pertinent positives & negatives. and A total of 10 systems reviewed and were otherwise negative Physical Exam Vital Signs Vital Signs - 24 hr 11/01/19 19:44 11/01/19 19:49 11/01/19 20:53 Temperature 37.4 C Temperature Source Oral Pulse Rate 94 H Pulse Rate [Right Finger] 86 Respiratory Rate 22 30 H Respiratory Effort / Characteristics Non-Labored Spontaneous Spontaneous Respiratory Depth Normal Blood Pressure 156/75 H Blood Pressure Mean 102 Pulse Oximetry 92 92 93 Oxygen Delivery Method Room Air Room Air Room Air Sepsis Recent Fever Within 48 Hours Yes Sepsis New/Unexplained Change in Mental Status No Sepsis Action Taken by Nursing Physician Notified GENERAL: Awake, alert, well-appearing, in no acute distress HENT: Normocephalic, atraumatic. Oropharynx unremarkable. EYES: Normal conjunctiva. Sclera non-icteric. NECK: Supple. No nuchal rigidity. FROM. No JVD. RESPIRATORY: Wheezing in right lower lobe. CARDIAC: Regular rate, normal rhythm. Extremities warm and well perfused. Pulses equal. ABDOMEN: Soft, non-distended. No tenderness to palpation. No rebound or guarding. No masses. RECTAL: Deferred. MUSCULOSKELETAL: Chest examination reveals no tenderness. The back is symmetrical on inspection without obvious abnormality. There is no CVA tenderness to palpation. No joint edema. LOWER EXTREMITIES: Calves are equal size bilaterally and non-tender. No edema. No discoloration. NEURO: Normal sensorium. No sensory or motor deficits noted. SKIN: No rash or jaundice noted. Course Course 1947: The patient was evaluated in room A2 and a complete history and physical were performed. 2144: I reevaluated the patient. She is resting comfortably. I discussed my recommendation she remain in the hospital for further evaluation and management and she and her daughter are agreeable with the plan. 5: I discussed the patients case with Dr. Plummer, [facility] Hospitalist. The patient will be further evaluated. Administered Medications Discontinued Medications Acetaminophen (Tylenol) 1,000 mg PO NOW STA Stop: 11/01/19 20:42 Last Admin: 11/01/19 20:52 Dose: 1,000 mg Documented by: [id number] Albuterol (Duoneb) 12 ml NEB ONE ONE Stop: 11/01/19 20:05 Last Admin: 11/01/19 20:53 Dose: 12 ml Documented by: [id number] Sodium Chloride (Nss 1000ml) 1,000 mls @ 999 mls/hr IV .Q1H1M ONE Stop: 11/01/19 21:41 Last Infusion: 11/01/19 21:54 Dose: 0 mls/hr Documented by: [id number] Admin: 11/01/19 20:52 Dose: 999 mls/hr Documented by: [id number] Piperacillin Sod/Tazobactam Sod (Zosyn) 4.5 gm in 120 mls @ 240 mls/hr IV NOW ONE Stop: 11/01/19 21:16 Last Infusion: 11/01/19 21:30 Dose: 0 mls/hr Documented by: [id number] Admin: 11/01/19 21:00 Dose: 240 mls/hr Documented by: [id number] Levofloxacin/Dextrose (Levaquin/D5w) 750 mg in 150 mls @ 100 mls/hr IV NOW STA Stop: 11/01/19 22:16 Last Infusion: 11/02/19 00:09 Dose: 0 mls/hr Documented by: [id number] Admin: 11/01/19 21:35 Dose: 100 mls/hr Documented by: [id number] Vancomycin HCl 1,750 mg/ (Sodium Chloride) 535 mls @ 200 mls/hr IV NOW ONE Stop: 11/01/19 23:27 Last Admin: 11/01/19 21:56 Dose: 200 mls/hr Documented by: [id number] Medical Decision Making Differential Diagnosis Differential diagnosis: Etiologies such as viral syndrome, otitis, pharyngitis, pneumonia, influenza, meningitis, urinary tract infection, sepsis, bacteremia, as well as others were entertained. Medical Records Attestation: I reviewed the patient's medical records. Home Medications Current Medication List: was personally reviewed by me Laboratory Data Attestation: I reviewed the patient's lab results. Result diagrams: 11/01/19 19:45 11/01/19 19:45 Lab Results 11/01/19 11/01/19 11/01/19 Range/Units 19:45 19:45 19:45 WBC 8.30 (4.8-10.8) K/uL RBC 4.17 L (4.2-5.4) M/uL Hgb 13.3 (12.0-16.0) g/dL Hct 39.7 (37-47) % MCV 95.2 (80-100) fL MCH 31.9 (25-34) pg MCHC 33.5 (32-36) g/dL RDW Std Deviation 46.5 H (36.4-46.3) fL RDW Coeff of Noa 13.5 (11.5-14.5) % Plt Count 314 (130-400) K/uL MPV 10.5 H (7.4-10.4) fL Immature Gran % (Auto) 0.4 % Neut % (Auto) 68.8 % Lymph % (Auto) 14.9 % Jennings % (Auto) 12.4 % Eos % (Auto) 2.7 % Baso % (Auto) 0.8 % Immature Gran # (Auto) 0.03 H (0.00-0.02) K/uL Neut # (Auto) 5.71 (1.4-6.5) K/uL Lymph # (Auto) 1.24 (1.2-3.4) K/uL Jennings # (Auto) 1.03 H (0.11-0.59) K/uL Eos # (Auto) 0.22 (0-0.5) K/uL Baso # (Auto) 0.07 (0-0.2) K/uL PT INR APTT PTT Ratio Sodium 138 (136-145) mmol/L Potassium 3.9 (3.5-5.1) mmol/L Chloride 107 (98-107) mmol/L Carbon Dioxide 23 (21-32) mmol/L Anion Gap 8.0 (3-11) BUN 14 (7-18) mg/dl Creatinine 1.01 (0.6-1.2) mg/dl Est Cr Clr Drug Dosing 36.5 ml/min Est GFR ( Amer) 57.6 Est GFR (Non-Af Amer) 49.7 BUN/Creatinine Ratio 14.1 (10-20) Glucose 143 H (70-99) mg/dl Lactate (0.4-2.0) mmol/L Calcium 8.6 (8.5-10.1) mg/dl Phosphorus 3.1 (2.5-4.9) mg/dl Magnesium 1.9 (1.8-2.4) mg/dl Total Bilirubin 0.3 (0.2-1) mg/dl AST 13 L (15-37) U/L ALT 16 (12-78) U/L Alkaline Phosphatase 89 (45-117) U/L Total Creatine Kinase 41 (26-192) U/L CK-MB (CK-2) < 1.0 (0.5-3.6) ng/ml CK/CKMB % Calc TNP Troponin I < 0.015 (0-0.045) ng/ml NT-Pro-B Natriuret Pep 330 (0-1800) pg/ml Total Protein 6.8 (6.4-8.2) gm/dl Albumin 2.7 L (3.4-5.0) gm/dl Globulin 4.1 H (2.5-4.0) gm/dl Albumin/Globulin Ratio 0.7 L (0.9-2) Procalcitonin < 0.05 (0-0.5) ng/ml Influenza Type A (PCR) (Neg) Influenza Type B (PCR) (Neg) 11/01/19 11/01/19 11/01/19 Range/Units 19:45 20:16 20:55 WBC (4.8-10.8) K/uL RBC (4.2-5.4) M/uL Hgb (12.0-16.0) g/dL Hct (37-47) % MCV (80-100) fL MCH (25-34) pg MCHC (32-36) g/dL RDW Std Deviation (36.4-46.3) fL RDW Coeff of Noa (11.5-14.5) % Plt Count (130-400) K/uL MPV (7.4-10.4) fL Immature Gran % (Auto) % Neut % (Auto) % Lymph % (Auto) % Jennings % (Auto) % Eos % (Auto) % Baso % (Auto) % Immature Gran # (Auto) (0.00-0.02) K/uL Neut # (Auto) (1.4-6.5) K/uL Lymph # (Auto) (1.2-3.4) K/uL Jennings # (Auto) (0.11-0.59) K/uL Eos # (Auto) (0-0.5) K/uL Baso # (Auto) (0-0.2) K/uL PT Cancelled INR Cancelled APTT Cancelled PTT Ratio Cancelled Sodium (136-145) mmol/L Potassium (3.5-5.1) mmol/L Chloride (98-107) mmol/L Carbon Dioxide (21-32) mmol/L Anion Gap (3-11) BUN (7-18) mg/dl Creatinine (0.6-1.2) mg/dl Est Cr Clr Drug Dosing ml/min Est GFR ( Amer) Est GFR (Non-Af Amer) BUN/Creatinine Ratio (10-20) Glucose (70-99) mg/dl Lactate 2.2 H* (0.4-2.0) mmol/L Calcium (8.5-10.1) mg/dl Phosphorus (2.5-4.9) mg/dl Magnesium (1.8-2.4) mg/dl Total Bilirubin (0.2-1) mg/dl AST (15-37) U/L ALT (12-78) U/L Alkaline Phosphatase (45-117) U/L Total Creatine Kinase (26-192) U/L CK-MB (CK-2) (0.5-3.6) ng/ml CK/CKMB % Calc Troponin I (0-0.045) ng/ml NT-Pro-B Natriuret Pep (0-1800) pg/ml Total Protein (6.4-8.2) gm/dl Albumin (3.4-5.0) gm/dl Globulin (2.5-4.0) gm/dl Albumin/Globulin Ratio (0.9-2) Procalcitonin (0-0.5) ng/ml Influenza Type A (PCR) Neg for Influ A (Neg) Influenza Type B (PCR) Neg for Influ B (Neg) Imaging Data Radiologist's Impression: Radiology results as stated below per my review and the radiologist's interpretation: XR chest 1V portable CLINICAL HISTORY: SEPSIS dyspnea COMPARISON STUDY: 10/05/2019 FINDINGS: Interval development of a parenchymal infiltrate left lung base. Trace left pleural fluid. Lungs otherwise appear clear. Mild stable cardiomegaly. IMPRESSION: Infiltrate left base. Trace left pleural effusion. Mild stable cardiomegaly. ACT 112: Negative or not required by law. The above report was generated using voice recognition software. It may contain grammatical, syntax or spelling errors. Electronically signed by: Nishant Fields M.D. 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 The monitor shows a rate of 88 with a normal sinus rhythm. This is an 89-year-old female who presents emergency department complaining of fever. The patient appears to have pneumonia on her chest x-ray. She was pancultured up given breathing treatments here in the emergency department. Because she was in a [facility] she was started on Zosyn Levaquin and va ncomycin. She does not have an elevation in her white blood cell count. I did discuss the case with the hospitalist service who did agree to admit the patient. Patient and family are in agreement with the treatment plan. Impression & Plan Fever, Pneumonia Discharge Plan Visit Data *Final* Discharge Date/Time: 11/01/19 21:58 Chief Complaint: Fever Stated Complaint: FEVER ED Provider: Modesto Prado Discharge Problem: Fever, Pneumonia Patient Disposition: Admitted As Inpatient Discharge Instructions Interventions: ED Discharge Assessment Last Done: 11/01/19 21:58 Discharge Problem: Fever Qualifiers: Fever type: unspecified Qualified Code(s): R50.9 - Fever, unspecified Pneumonia Qualifiers: Pneumonia type: due to unspecified organism Laterality: unspecified laterality Lung location: unspecified part of lung Qualified Code(s): J18.9 - Pneumonia, unspecified organism The scribe's documentation has been prepared under my direction and personally reviewed by me in its entirety. I confirm that the note above accurately reflects all work, treatment, procedures, and medical decision making performed by me.
[2019-11-02] MEDS: PIPERACILLIN/TAZOBACTAM 4.5 GM in DEXTROSE 5% 100 ML IV SCH ×3 (01:49→18:04)
[2019-11-02 07:00] LABS: Basophils # (auto) 0.04 K/uL (0-0.2); Basophils % (auto) 0.6 %; Eosinophils # (auto) 0.07 K/uL (0-0.5); Hematocrit (blood only) 37.1 % (37-47); Immature Granulocytes # (auto) 0.03 K/uL (0.00-0.02); Immature Granulocytes % (auto) 0.4 %; Lymphocytes # (auto) 0.98 K/uL (1.2-3.4); Lymphocytes % (auto) 13.5 %; Mean Corpuscular Hemoglobin 31.3 pg (25-34); Mean Corpuscular Hgb Conc 32.3 g/dL (32-36); Mean Corpuscular Volume 96.6 fL (80-100); Mean Platelet Volume 9.8 fL (7.4-10.4); Monocytes # (auto) 0.87 K/uL (0.11-0.59); Neutrophils # (auto) 5.27 K/uL (1.4-6.5); Neutrophils % (auto) 72.5 %; Platelet Count 279 K/uL (130-400); RDW Coefficient of Variation 13.7 % (11.5-14.5); RDW Standard Deviation 48.7 fL (36.4-46.3); Red Blood Count 3.84 M/uL (4.2-5.4); White Blood Count 7.26 K/uL (4.8-10.8)
[2019-11-02 07:29] LABS: Est GFR (African American) 69.9; Potassium 3.9 mmol/L (3.5-5.1)
[2019-11-02 07:30] LABS: BUN Creatinine Ratio 15.3 (10-20); Creatinine Clr Calc Pharmacy 42.8 ml/min; Est GFR (Non-African American) 60.3
[2019-11-02] MEDS: ASPIRIN 81 MG ECTAB PO SCH (08:12)
[2019-11-02] MEDS: CYANOCOBALAMIN 500 MCG TABLET (VITAMIN B-12) PO SCH (08:12)
[2019-11-02] MEDS: PANTOprazole 40 MG TAB PO SCH ×2 (08:12→20:21)
[2019-11-02] MEDS: DOCUSATE SODIUM 100 MG CAP PO SCH ×2 (08:12→20:21)
[2019-11-02] MEDS: FUROSEMIDE 40 MG TAB PO SCH (08:12)
[2019-11-02] MEDS: LIDOCAINE 5% 1 PATCH TD SCH (08:13)
[2019-11-02] MEDS: FLUTICASONE/VILANTEROL 100/25MCG 14 PUFFS/INHALER INH SCH (08:13)
[2019-11-02] MEDS: METOPROLOL SUCC 50MG EXT REL TAB PO SCH (08:14)
[2019-11-02] MEDS: guaiFENesin 600 MG TABCR PO SCH ×2 (08:14→20:20)
[2019-11-02] MEDS: GABAPENTIN 100 MG CAP PO SCH ×3 (08:14→20:21)
[2019-11-02] MEDS: ATORVASTATIN 40 MG TAB PO SCH (08:14)
--- NOTE | 2019-11-02 08:48 | XRay Report ---
XR chest 2V PA/lateral CLINICAL HISTORY: 89 years-old Female presenting with ?PNA. TECHNIQUE: Portable upright AP view of the chest was obtained. COMPARISON: 11/01/2019. FINDINGS: Atherosclerosis of the aortic arch. Cardiac silhouette enlarged. Pulmonary vascular prominence and in terstitial prominence significantly increased from prior. Bibasilar opacities as on prior exam. Under lying small left pleural effusion may be present. No pneumothorax. Compression deformities may be pre sent as on prior exam. Degenerative changes of the spine. Degenerative changes of the left glenohumer al joint. Suspected osteopenia. Upper abdomen normal. IMPRESSION: 1. Cardiomegaly with suspected worsened volume overload and congestive change. 2. Bibasilar opacities may represent mild edema or aspiration/aspiration pneumonitis. Infection is n ot favored. 3. Possible small left pleural effusion. ACT 112: Negative or not required by law. Electronically signed by: Felipe Gallego M.D. 11/02/2019 8:47 AM
[2019-11-02] MEDS: ALBUT/IPRATROP 3MG/0.5MG NEB 3 ML VIAL NEB SCH ×3 (09:17→20:12)
[2019-11-02] MEDS: BENZONATATE 100 MG CAPSULE PO SCH ×3 (09:41→20:20)
--- NOTE | 2019-11-02 14:31 | Electrocardiogram Report ---
Test Reason : Blood Pressure : / mmHG Vent. Rate : 088 BPM Atrial Rate : 088 BPM P-R Int : 132 ms QRS Dur : 110 ms QT Int : 406 ms P-R-T Axes : 026 001 014 degrees QTc Int : 491 ms Poor data quality, interpretation may be adversely affected Normal sinus rhythm Right bundle branch block with repolarization abnormality Cannot rule out Old Inferior infarct Abnormal ECG When compared with ECG of 01-OCT-2019 06:39, Premature atrial complexes are no longer Present Borderline Criteria for Inferior infarct now present Confirmed by Oren Baird ([id number]) on 11/02/2019 2:31:22 PM Referred By: [facility] Confirmed By:Oren Baird
--- NOTE | 2019-11-02 17:23 | Hospitalist Progress Note ---
Date of Service November 02, 2019 Assessment & Plan (1) Pneumonia: - Recent hospitalization for bronchitis, treated with course of Augmentin. - CXR this admission showed bibasilar opacities c/w mild edema vs. aspiration/aspiration pneumonitis (infection not favored). - Influenza was negative; procal level also negative. - Continue Zosyn IV; will d/c Vanc due to negative MRSA swab. Consider de- escalating Zosyn on 11/02 due to low likelihood of bacterial infection. - Tessalon perles TID, Mucinex BID, Duonebs q6hr ATC. Also on Breo-Ellipta. - Aspiration precautions. Recently evaluated by speech, recommend minced and moist diet. (2) Elevated lactic acid level: - Lactic level increased to 2.6 now trending down. - Will repeat level in the AM to eval for improvement. (3) CAD (coronary artery disease): - Continue ASA, Metoprolol and Atorvastatin. (4) Dyslipidemia: - Continue Atorvastatin. (5) GERD (gastroesophageal reflux disease): - Continue PPI BID. 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 (7) CKD (chronic kidney disease), stage III: - Renally dose all meds. (8) Cor pulmonale: - Noted on previous echo. - CXR with pulm edema on admission. - Continue Lasix and BB. (9) DVT prophylaxis: - SCDs. Dispo: Med/surg; OT recommending SNF, case management following. Admission and Anticipated Discharge Date Admission Date: November 01, 2019 Supervising Physician Co-Signing Physician Notes Attending Attestation - Chart reviewed in detail, care plan d/w WING Lawson. I agree w/ the byers components of her documentation. 89yo female well known to me from prior hospitalization. ?recurrent pneumonia vs bronchitis. Cont Rx as noted above. Vitals/labs remain stable. Mark Maya MD Subjective Pt. reports ongoing SOB with exertion today but is stable on room air. Has a productive cough. Denies chest pain. Review of Systems Review of Systems: All systems reviewed & are unremarkable except as noted in HPI & below Constitutional: + fatigue, + weakness and + anorexia; no fever and no chills Respiratory: + cough, + dyspnea on exertion and + sputum production; no dyspnea and no wheezing Cardiovascular: no chest pain, no palpitations and no edema Gastrointestinal: no abdominal pain, no nausea, no vomiting and no constipation Genitourinary: no difficulty urinating Musculoskeletal: no back pain and no joint pain Integumentary: no non-healing lesions Physical Exam Physical Exam: General: Resting comfortably HEENT: NC/AT; PERRLA with EOMI; [place] conjunctiva, MMM. No erythema of posterior pharynx Neck: Supple and nontender Cardiac: RRR Lungs: room air; mild crackles in bilat lower lung bases. Abdomen: Bowel normoactive X 4; Nontender to palpation Extremities: Warm. No edema present Neuro: No focal weakness Skin: No rash Results & Data ([facility]) Vital Signs (Past 12 Hours) Vital Signs Temp Pulse Resp BP Pulse Ox 11/02/19 16:37 36.8 C 95 H 20 106/60 97 11/02/19 13:34 97 H 18 94 11/02/19 09:17 99 H 18 94 11/02/19 07:15 37.1 C 91 H 18 130/65 94 Laboratory Results 11/02/19 11/02/19 11/02/19 Range/Units 08:58 06:32 06:32 WBC 7.26 (4.8-10.8) K/uL RBC 3.84 L (4.2-5.4) M/uL Hgb 12.0 (12.0-16.0) g/dL Hct 37.1 (37-47) % MCV 96.6 (80-100) fL MCH 31.3 (25-34) pg MCHC 32.3 (32-36) g/dL RDW Std Deviation 48.7 H (36.4-46.3) fL RDW Coeff of Noa 13.7 (11.5-14.5) % Plt Count 279 (130-400) K/uL MPV 9.8 (7.4-10.4) fL Immature Gran % (Auto) 0.4 % Neut % (Auto) 72.5 % Lymph % (Auto) 13.5 % Love % (Auto) 12.0 % Eos % (Auto) 1.0 % Baso % (Auto) 0.6 % Immature Gran # (Auto) 0.03 H (0.00-0.02) K/uL Neut # (Auto) 5.27 (1.4-6.5) K/uL Lymph # (Auto) 0.98 L (1.2-3.4) K/uL Love # (Auto) 0.87 H (0.11-0.59) K/uL Eos # (Auto) 0.07 (0-0.5) K/uL Baso # (Auto) 0.04 (0-0.2) K/uL PT INR APTT PTT Ratio Sodium 141 (136-145) mmol/L Potassium 3.9 (3.5-5.1) mmol/L Chloride 110 H (98-107) mmol/L Carbon Dioxide 25 (21-32) mmol/L Anion Gap 6.0 (3-11) BUN 13 (7-18) mg/dl Creatinine 0.86 (0.6-1.2) mg/dl Est Cr Clr Drug Dosing 42.8 ml/min Est GFR ( Amer) 69.9 Est GFR (Non-Af Amer) 60.3 BUN/Creatinine Ratio 15.3 (10-20) Glucose 106 H (70-99) mg/dl Lactate 2.5 H* (0.4-2.0) mmol/L Calcium 8.0 L (8.5-10.1) mg/dl Phosphorus (2.5-4.9) mg/dl Magnesium (1.8-2.4) mg/dl Total Bilirubin (0.2-1) mg/dl AST (15-37) U/L ALT (12-78) U/L Alkaline Phosphatase (45-117) U/L Total Creatine Kinase (26-192) U/L CK-MB (CK-2) (0.5-3.6) ng/ml CK/CKMB % Calc Troponin I (0-0.045) ng/ml NT-Pro-B Natriuret Pep (0-1800) pg/ml Total Protein (6.4-8.2) gm/dl Albumin (3.4-5.0) gm/dl Globulin (2.5-4.0) gm/dl Albumin/Globulin Ratio (0.9-2) Procalcitonin (0-0.5) ng/ml Nasal Screen MRSA (PCR) (Negative) Influenza Type A (PCR) (Neg) Influenza Type B (PCR) (Neg) 11/02/19 11/01/19 11/01/19 Range/Units 06:20 22:01 21:30 WBC (4.8-10.8) K/uL RBC (4.2-5.4) M/uL Hgb (12.0-16.0) g/dL Hct (37-47) % MCV (80-100) fL MCH (25-34) pg MCHC (32-36) g/dL RDW Std Deviation (36.4-46.3) fL RDW Coeff of Noa (11.5-14.5) % Plt Count (130-400) K/uL MPV (7.4-10.4) fL Immature Gran % (Auto) % Neut % (Auto) % Lymph % (Auto) % Love % (Auto) % Eos % (Auto) % Baso % (Auto) % Immature Gran # (Auto) (0.00-0.02) K/uL Neut # (Auto) (1.4-6.5) K/uL Lymph # (Auto) (1.2-3.4) K/uL Love # (Auto) (0.11-0.59) K/uL Eos # (Auto) (0-0.5) K/uL Baso # (Auto) (0-0.2) K/uL PT 11.7 INR 1.1 APTT 25.9 PTT Ratio 0.9 Sodium (136-145) mmol/L Potassium (3.5-5.1) mmol/L Chloride (98-107) mmol/L Carbon Dioxide (21-32) mmol/L Anion Gap (3-11) BUN (7-18) mg/dl Creatinine (0.6-1.2) mg/dl Est Cr Clr Drug Dosing ml/min Est GFR ( Amer) Est GFR (Non-Af Amer) BUN/Creatinine Ratio (10-20) Glucose (70-99) mg/dl Lactate 2.6 H* (0.4-2.0) mmol/L Calcium (8.5-10.1) mg/dl Phosphorus (2.5-4.9) mg/dl Magnesium (1.8-2.4) mg/dl Total Bilirubin (0.2-1) mg/dl AST (15-37) U/L ALT (12-78) U/L Alkaline Phosphatase (45-117) U/L Total Creatine Kinase (26-192) U/L CK-MB (CK-2) (0.5-3.6) ng/ml CK/CKMB % Calc Troponin I (0-0.045) ng/ml NT-Pro-B Natriuret Pep (0-1800) pg/ml Total Protein (6.4-8.2) gm/dl Albumin (3.4-5.0) gm/dl Globulin (2.5-4.0) gm/dl Albumin/Globulin Ratio (0.9-2) Procalcitonin (0-0.5) ng/ml Nasal Screen MRSA (PCR) Negative (Negative) Influenza Type A (PCR) (Neg) Influenza Type B (PCR) (Neg) 11/01/19 11/01/19 11/01/19 Range/Units 20:55 20:16 19:45 WBC (4.8-10.8) K/uL RBC (4.2-5.4) M/uL Hgb (12.0-16.0) g/dL Hct (37-47) % MCV (80-100) fL MCH (25-34) pg MCHC (32-36) g/dL RDW Std Deviation (36.4-46.3) fL RDW Coeff of Noa (11.5-14.5) % Plt Count (130-400) K/uL MPV (7.4-10.4) fL Immature Gran % (Auto) % Neut % (Auto) % Lymph % (Auto) % Love % (Auto) % Eos % (Auto) % Baso % (Auto) % Immature Gran # (Auto) (0.00-0.02) K/uL Neut # (Auto) (1.4-6.5) K/uL Lymph # (Auto) (1.2-3.4) K/uL Love # (Auto) (0.11-0.59) K/uL Eos # (Auto) (0-0.5) K/uL Baso # (Auto) (0-0.2) K/uL PT Cancelled INR Cancelled APTT Cancelled PTT Ratio Cancelled Sodium (136-145) mmol/L Potassium (3.5-5.1) mmol/L Chloride (98-107) mmol/L Carbon Dioxide (21-32) mmol/L Anion Gap (3-11) BUN (7-18) mg/dl Creatinine (0.6-1.2) mg/dl Est Cr Clr Drug Dosing ml/min Est GFR ( Amer) Est GFR (Non-Af Amer) BUN/Creatinine Ratio (10-20) Glucose (70-99) mg/dl Lactate 2.2 H* (0.4-2.0) mmol/L Calcium (8.5-10.1) mg/dl Phosphorus (2.5-4.9) mg/dl Magnesium (1.8-2.4) mg/dl Total Bilirubin (0.2-1) mg/dl AST (15-37) U/L ALT (12-78) U/L Alkaline Phosphatase (45-117) U/L Total Creatine Kinase (26-192) U/L CK-MB (CK-2) (0.5-3.6) ng/ml CK/CKMB % Calc Troponin I (0-0.045) ng/ml NT-Pro-B Natriuret Pep (0-1800) pg/ml Total Protein (6.4-8.2) gm/dl Albumin (3.4-5.0) gm/dl Globulin (2.5-4.0) gm/dl Albumin/Globulin Ratio (0.9-2) Procalcitonin (0-0.5) ng/ml Nasal Screen MRSA (PCR) (Negative) Influenza Type A (PCR) Neg for Influ A (Neg) Influenza Type B (PCR) Neg for Influ B (Neg) 11/01/19 11/01/19 11/01/19 Range/Units 19:45 19:45 19:45 WBC 8.30 (4.8-10.8) K/uL RBC 4.17 L (4.2-5.4) M/uL Hgb 13.3 (12.0-16.0) g/dL Hct 39.7 (37-47) % MCV 95.2 (80-100) fL MCH 31.9 (25-34) pg MCHC 33.5 (32-36) g/dL RDW Std Deviation 46.5 H (36.4-46.3) fL RDW Coeff of Noa 13.5 (11.5-14.5) % Plt Count 314 (130-400) K/uL MPV 10.5 H (7.4-10.4) fL Immature Gran % (Auto) 0.4 % Neut % (Auto) 68.8 % Lymph % (Auto) 14.9 % Love % (Auto) 12.4 % Eos % (Auto) 2.7 % Baso % (Auto) 0.8 % Immature Gran # (Auto) 0.03 H (0.00-0.02) K/uL Neut # (Auto) 5.71 (1.4-6.5) K/uL Lymph # (Auto) 1.24 (1.2-3.4) K/uL Love # (Auto) 1.03 H (0.11-0.59) K/uL Eos # (Auto) 0.22 (0-0.5) K/uL Baso # (Auto) 0.07 (0-0.2) K/uL PT INR APTT PTT Ratio Sodium 138 (136-145) mmol/L Potassium 3.9 (3.5-5.1) mmol/L Chloride 107 (98-107) mmol/L Carbon Dioxide 23 (21-32) mmol/L Anion Gap 8.0 (3-11) BUN 14 (7-18) mg/dl Creatinine 1.01 (0.6-1.2) mg/dl Est Cr Clr Drug Dosing 36.5 ml/min Est GFR ( Amer) 57.6 Est GFR (Non-Af Amer) 49.7 BUN/Creatinine Ratio 14.1 (10-20) Glucose 143 H (70-99) mg/dl Lactate (0.4-2.0) mmol/L Calcium 8.6 (8.5-10.1) mg/dl Phosphorus 3.1 (2.5-4.9) mg/dl Magnesium 1.9 (1.8-2.4) mg/dl Total Bilirubin 0.3 (0.2-1) mg/dl AST 13 L (15-37) U/L ALT 16 (12-78) U/L Alkaline Phosphatase 89 (45-117) U/L Total Creatine Kinase 41 (26-192) U/L CK-MB (CK-2) < 1.0 (0.5-3.6) ng/ml CK/CKMB % Calc TNP Troponin I < 0.015 (0-0.045) ng/ml NT-Pro-B Natriuret Pep 330 (0-1800) pg/ml Total Protein 6.8 (6.4-8.2) gm/dl Albumin 2.7 L (3.4-5.0) gm/dl Globulin 4.1 H (2.5-4.0) gm/dl Albumin/Globulin Ratio 0.7 L (0.9-2) Procalcitonin < 0.05 (0-0.5) ng/ml Nasal Screen MRSA (PCR) (Negative) Influenza Type A (PCR) (Neg) Influenza Type B (PCR) (Neg) PG Care Time/CCT Total # of Minutes Spent Total Time Spent with Patient: Total time spent is greater than 50% in coordination of care (as documented) at patient's floor/unit and/or counseling patient: Coding Level of Care Code 45637 Subseq Hosp Care Lvl 3 Diagnoses Pneumonia J18.9 Laterality: left Lung location: lower lobe of lung Pneumonia type: due to unspecified organism Elevated lactic acid level R79.89 CAD (coronary artery disease) I25.10 Associated angina: without angina Coronary Disease-Associated Artery/Lesion type: [place] artery [place] vs. transplanted heart: [place] heart Dyslipidemia E78.5 GERD (gastroesophageal reflux disease) K21.9 Esophagitis presence: esophagitis presence not specified Neurapraxia of peripheral nerve T14.8XXA CKD (chronic kidney disease), stage III N18.3 Cor pulmonale I27.81 DVT prophylaxis Z29.9 (1) CAD (coronary artery disease) Associated angina: without angina Coronary Disease-Associated Artery/Lesion type: [place] artery [place] vs. transplanted heart: [place] heart Qualified Code(s): I25.10 - Atherosclerotic heart disease of [place] coronary artery without angina pectoris (2) GERD (gastroesophageal reflux disease) Esophagitis presence: esophagitis presence not specified Qualified Code(s): K21.9 - Gastro-esophageal reflux disease without esophagitis (3) Pneumonia Laterality: left Lung location: lower lobe of lung Pneumonia type: due to unspecified organism Qualified Code(s): J18.9 - Pneumonia, unspecified organism
[2019-11-02] MEDS: ACETAMINOPHEN 325 MG TAB PO PRN (18:10)
[2019-11-03] MEDS: ALBUT/IPRATROP 3MG/0.5MG NEB 3 ML VIAL NEB SCH ×4 (00:54→19:22)
[2019-11-03] MEDS: PIPERACILLIN/TAZOBACTAM 4.5 GM in DEXTROSE 5% 100 ML IV SCH ×2 (03:24→09:17)
[2019-11-03 06:13] LABS: BUN Creatinine Ratio 12.5 (10-20); Calcium 8.1 mg/dl (8.5-10.1); Creatinine Clr Calc Pharmacy 39.4 ml/min; Est GFR (Non-African American) 58.7; Potassium 3.4 mmol/L (3.5-5.1)
[2019-11-03] MEDS ORDERED: POTASSIUM CHLORIDE 20 MEQ TABCR PO STA (08:35)
[2019-11-03] MEDS: FLUTICASONE/VILANTEROL 100/25MCG 14 PUFFS/INHALER INH SCH (09:12)
[2019-11-03] MEDS: GABAPENTIN 100 MG CAP PO SCH ×3 (09:12→20:40)
[2019-11-03] MEDS: PANTOprazole 40 MG TAB PO SCH ×2 (09:13→20:40)
[2019-11-03] MEDS: guaiFENesin 600 MG TABCR PO SCH ×2 (09:13→20:39)
[2019-11-03] MEDS: DOCUSATE SODIUM 100 MG CAP PO SCH ×2 (09:13→20:39)
[2019-11-03] MEDS: NAPROXEN 250 MG TAB PO PRN ×2 (09:13→23:34)
[2019-11-03] MEDS: CYANOCOBALAMIN 500 MCG TABLET (VITAMIN B-12) PO SCH (09:14)
[2019-11-03] MEDS: ATORVASTATIN 40 MG TAB PO SCH (09:14)
[2019-11-03] MEDS: METOPROLOL SUCC 50MG EXT REL TAB PO SCH (09:14)
[2019-11-03] MEDS: ASPIRIN 81 MG ECTAB PO SCH (09:14)
[2019-11-03] MEDS: FUROSEMIDE 40 MG TAB PO SCH (09:14)
[2019-11-03] MEDS: LIDOCAINE 5% 1 PATCH TD SCH (09:15)
[2019-11-03] MEDS: BENZONATATE 100 MG CAPSULE PO SCH ×3 (09:17→20:43)
[2019-11-03] MEDS: ACETAMINOPHEN 325 MG TAB PO PRN ×2 (11:33→20:39)
--- NOTE | 2019-11-03 13:54 | Hospitalist Progress Note ---
Date of Service November 03, 2019 Assessment & Plan (1) Pneumonia: - Recent hospitalization for bronchitis, treated with course of Augmentin. - CXR this admission showed bibasilar opacities c/w mild edema vs. aspiration/aspiration pneumonitis (infection not favored). - Influenza was negative; procal level also negative. - Received Zosyn x 48 hours; will convert to Augmentin x 5 days for coverage of acute otitis media, will also cover bacterial infection/aspiration PNA although it is unlikely in setting of negative CXR and procal level. - Tessalon perles TID, Mucinex BID, Duonebs q6hr ATC. Also on Breo-Ellipta. - Aspiration precautions. Recently evaluated by speech, recommend minced and moist diet. (2) Elevated lactic acid level: - Lactic level increased to 2.6, now improved to <2. (3) Acute otitis media, right: - C/o right ear pain -- evidence of acute infection on exam. - Possibly related to viral infection/congestion leading to increased pressure but will cover for bacterial source with PO abx. - Will start Augmentin BID x 5 days (received Zosyn x 2 days) -- did not choose Amoxicillin due to recent treatment with augmentin, may not respond to Amoxicillin therapy if used. (4) CAD (coronary artery disease): - Continue ASA, Metoprolol and Atorvastatin. (5) Dyslipidemia: - Continue Atorvastatin. (6) GERD (gastroesophageal reflux disease): - Continue PPI BID. (7) Neurapraxia of peripheral nerve: - Continue Gabapentin 100mg TID. (8) CKD (chronic kidney disease), stage III: - Renally dose all meds. (9) Cor pulmonale: - Noted on previous echo. - CXR with pulm edema on admission. - Monitor net I/Os and daily weights. - Continue Lasix and BB. (10) DVT prophylaxis: - SCDs. K level 3.4 -- ordered KCl 40 mEq PO. Dispo: Med/surg; therapy recommending return to [facility]. Discharge likely on 11/03 pending improvement in resp issues and right ear pain. Admission and Anticipated Discharge Date Admission Date: November 01, 2019 Supervising Physician Co-Signing Physician Notes Attending Attestation - Chart reviewed in detail, care plan d/w WING Lawson. I agree w/ the byers components of her documentation. 89yo female well known to me from prior hospitalization. ?recurrent pneumonia vs bronchitis along with AOM. Favor bronchitis as cause of cough. Vitals/labs remain stable. Cont care plan as noted by Ms Lawson. Mark Maya MD Subjective Pt. c/o right ear pain, increased overall compared to yesterday. Has productive cough, denies chest pain or SOB. Currently weaned to room air. Review of Systems Review of Systems: All systems reviewed & are unremarkable except as noted in HPI & below Constitutional: + fatigue and + weakness; no fever, no chills and no anorexia Respiratory: + cough and + sputum production; no dyspnea, no dyspnea on exertion and no wheezing Cardiovascular: no chest pain, no palpitations and no edema Gastrointestinal: no abdominal pain, no nausea, no vomiting and no constipation Genitourinary: no difficulty urinating Musculoskeletal: no back pain and no joint pain Integumentary: no non-healing lesions Physical Exam Physical Exam: General: Resting comfortably HEENT: NC/AT; PERRLA with EOMI; [place] conjunctiva, MMM. No erythema of posterior pharynx Neck: Supple and nontender Cardiac: RRR Lungs: room air; CTA throughout Abdomen: Bowel normoactive X 4; Nontender to palpation Extremities: Warm. No edema present Neuro: No focal weakness Skin: No rash Results & Data ([facility]) Vital Signs (Past 12 Hours) Vital Signs Temp Pulse Resp BP Pulse Ox 11/03/19 13:29 90 18 95 11/03/19 07:49 36.5 C 87 20 119/70 93 11/03/19 07:20 80 18 95 Laboratory Results 11/03/19 11/03/19 Range/Units 05:30 05:30 Sodium 142 (136-145) mmol/L Potassium 3.4 L (3.5-5.1) mmol/L Chloride 112 H (98-107) mmol/L Carbon Dioxide 23 (21-32) mmol/L Anion Gap 7.0 (3-11) BUN 11 (7-18) mg/dl Creatinine 0.88 (0.6-1.2) mg/dl Est Cr Clr Drug Dosing 39.4 ml/min Est GFR ( Amer) 68.0 Est GFR (Non-Af Amer) 58.7 BUN/Creatinine Ratio 12.5 (10-20) Glucose 116 H (70-99) mg/dl Lactate 1.2 (0.4-2.0) mmol/L Calcium 8.1 L (8.5-10.1) mg/dl Magnesium 2.0 (1.8-2.4) mg/dl PG Care Time/CCT Total # of Minutes Spent Total Time Spent with Patient: Total time spent is greater than 50% in coordination of care (as documented) at patient's floor/unit and/or counseling patient: Coding Level of Care Code 69859 Subseq Hosp Care Lvl 3 Diagnoses Pneumonia J18.9 Laterality: left Lung location: lower lobe of lung Pneumonia type: due to unspecified organism Elevated lactic acid level R79.89 Acute otitis media, right H66.91 CAD (coronary artery disease) I25.10 Associated angina: without angina Coronary Disease-Associated Artery/Lesion type: [place] artery [place] vs. transplanted heart: [place] heart Dyslipidemia E78.5 GERD (gastroesophageal reflux disease) K21.9 Esophagitis presence: esophagitis presence not specified Neurapraxia of peripheral nerve T14.8XXA CKD (chronic kidney disease), stage III N18.3 Cor pulmonale I27.81 DVT prophylaxis Z29.9 (1) CAD (coronary artery disease) Associated angina: without angina Coronary Disease-Associated Artery/Lesion type: [place] artery [place] vs. transplanted heart: [place] heart Qualified Code(s): I25.10 - Atherosclerotic heart disease of [place] coronary artery without angina pectoris (2) GERD (gastroesophageal reflux disease) Esophagitis presence: esophagitis presence not specified Qualified Code(s): K21.9 - Gastro-esophageal reflux disease without esophagitis (3) Pneumonia Laterality: left Lung location: lower lobe of lung Pneumonia type: due to unspecified organism Qualified Code(s): J18.9 - Pneumonia, unspecified organism
[2019-11-03] MEDS: AMOXICILLIN/CLAVULANATE 875 MG TAB PO SCH (16:12)
[2019-11-04] MEDS: ALBUT/IPRATROP 3MG/0.5MG NEB 3 ML VIAL NEB SCH ×3 (01:11→13:36)
[2019-11-04 06:06] LABS: Hematocrit (blood only) 37.3 % (37-47); Hemoglobin 12.2 g/dL (12.0-16.0); Mean Corpuscular Hemoglobin 31.6 pg (25-34); Mean Corpuscular Hgb Conc 32.7 g/dL (32-36); Mean Corpuscular Volume 96.6 fL (80-100); Mean Platelet Volume 10.2 fL (7.4-10.4); Platelet Count 263 K/uL (130-400); RDW Coefficient of Variation 14.1 % (11.5-14.5); RDW Standard Deviation 50.2 fL (36.4-46.3); Red Blood Count 3.86 M/uL (4.2-5.4); White Blood Count 6.86 K/uL (4.8-10.8)
[2019-11-04 06:41] LABS: Calcium 8.3 mg/dl (8.5-10.1); Est GFR (African American) 63.6; Est GFR (Non-African American) 54.9; Potassium 3.7 mmol/L (3.5-5.1)
[2019-11-04] MEDS: METOPROLOL SUCC 50MG EXT REL TAB PO SCH (08:34)
[2019-11-04] MEDS: AMOXICILLIN/CLAVULANATE 875 MG TAB PO SCH ×2 (08:34→17:24)
[2019-11-04] MEDS: ASPIRIN 81 MG ECTAB PO SCH (08:35)
[2019-11-04] MEDS: guaiFENesin 600 MG TABCR PO SCH ×2 (08:35→20:31)
[2019-11-04] MEDS: ATORVASTATIN 40 MG TAB PO SCH (08:35)
[2019-11-04] MEDS: CYANOCOBALAMIN 500 MCG TABLET (VITAMIN B-12) PO SCH (08:35)
[2019-11-04] MEDS: PANTOprazole 40 MG TAB PO SCH ×2 (08:36→20:30)
[2019-11-04] MEDS: LIDOCAINE 5% 1 PATCH TD SCH (08:36)
[2019-11-04] MEDS: DOCUSATE SODIUM 100 MG CAP PO SCH ×2 (08:36→20:30)
[2019-11-04] MEDS: FUROSEMIDE 40 MG TAB PO SCH (08:36)
[2019-11-04] MEDS: GABAPENTIN 100 MG CAP PO SCH ×3 (08:37→20:28)
[2019-11-04] MEDS: FLUTICASONE/VILANTEROL 100/25MCG 14 PUFFS/INHALER INH SCH (08:37)
[2019-11-04] MEDS: BENZONATATE 100 MG CAPSULE PO SCH ×3 (08:43→20:32)
--- NOTE | 2019-11-04 13:10 | Hospitalist Progress Note ---
Date of Service November 04, 2019 Assessment & Plan (1) Pneumonia: * Recent hospitalization for bronchitis, treated with course of Augmentin. * CXR this admission showed bibasilar opacities c/w mild edema vs. aspiration/aspiration pneumonitis (infection not favored). * Influenza was negative; procal level also negative. * Received Zosyn x 48 hours; will convert to Augmentin x 5 days for coverage of acute otitis media, will also cover bacterial infection/aspiration PNA although it is unlikely in setting of negative CXR and procal level. * Tessalon perles TID, Mucinex BID. Also on Breo-Ellipta. * Wheezing on exam today --> Changed nebs to levalbuterol Q6 scheduled. * Aspiration precautions. Recently evaluated by speech, recommend minced and moist diet. * Of note, patient also with increased daytime sleepiness/snoring/mallampati III -- will obtain overnight pulse ox to see if patient qualifies for O2. Possible underlying sleep apnea (2) Elevated lactic acid level: * Lactic level increased to 2.6, now improved to <2. (3) Acute otitis media, right: * C/o right ear pain -- evidence of acute infection on exam. * Severe otalgia today -- CT sinuses obtained -- mild mucosal thickening of sinuses, ostiomeatal units patent bilaterally * Possibly related to viral infection/congestion leading to increased pressure but will cover for bacterial source with PO abx. * Augmentin BID x 5 days (received Zosyn x 2 days) -- did not choose Amoxicillin due to recent treatment with augmentin, may not respond to Amoxicillin therapy if used. (4) CAD (coronary artery disease): * Chronic. Stable. Previous PCI with stenting. * Continue ASA, Metoprolol and Atorvastatin. (5) Dyslipidemia: * Chronic. Stable * Continue Atorvastatin. (6) GERD (gastroesophageal reflux disease): * Chronic. Stable * Continue 40mg protonix BID while inpatient -- she is on omeprazole 20mg BID as outpatient, non-formulary (7) Neurapraxia of peripheral nerve: * Continue Gabapentin 100mg TID. (8) CKD (chronic kidney disease), stage III: * eGFR 54.9 ~baseline * Cr 0.93 * Renally dose all meds., avoid nephrotic agents * BMP in AM (9) Cor pulmonale: * Noted on previous echo Sep 2019 -- EF >70%, but with RV pressure elevation and moderate dilation, moderate to severe RVH * possibly secondary to untreated PHYLLIS vs left sided diastolic CHF * CXR with pulmonary edema on admission * Monitor daily weights -- standing scale preferred * Monitor I&Os * Continue home lasix 40mg, metoprolol 50mg daily (10) Otalgia: * See above -- likely secondary to Otitis . See CT above * Ordered vosol Q4 OT for pain, given no evidence of TM rupture on exam * Continue to monitor (11) Hypokalemia: * K 3.4 on 11/02 -- given 40meq PO * K stable at 3.7 (12) DVT prophylaxis: * SCDs K level 3.4 -- ordered KCl 40 mEq PO. Dispo: therapy recommending return to [facility], able to accept over the weekend when stable. Likely discharge in AM pending improvement in resp issues and right ear pain. Admission and Anticipated Discharge Date Admission Date: November 01, 2019 Supervising Physician Co-Signing Physician Notes WING Supervision Note: I did not personally see or examine the patient today, but I verified all byers points of WING Guthrie's assessment and plan with the following exceptions/additions: None Subjective Patient evaluated with daughter at bedside. Patient with worsening cough today with tightness and wheezing. Productive but unaware of any discoloration. Main concern today is severe right ear and posterior scalp pain. Patient also with chronic decreased hearing, although worsened today to left ear. Denies any fevers or chills, chest pain, abdominal pain, n/v/d. Lower rib pain with continued cough. Also has sinus pressure. Discussed obtaining CT of her sinuses and performing overnight pulse ox. Patient's daughter states that the patient has been increasingly sleepy during the daytime and has had episodes of snoring. She states her mother frequently takes naps after all meals and falls asleep quickly. Never previously tested for sleep apnea. Review of Systems Review of Systems: All systems reviewed & are unremarkable except as noted in HPI & below Physical Exam Constitutional: WD/WN, vitals as above + uncomfortable Eyes: + anicteric sclerae; no conjunctival abnormality ENMT: tragus tender to palpation of RIGHT ear. mastoid process also tender maxillary sinuses tender to palpation R>L Frontal sinuses nontender bilaterally hearing decreased R ear and minimally to L ear external ears without obvious abnormality. EAC minimally erythematous R side with bulging TM, serous fluid present Mouth: mmm post nasal drip mallampati class III Neck: trachea midline, no thyromegaly Respiratory: able to speak in complete sentences; no respiratory distress, no labored breathing and does not use accessory muscles Auscultation: lungs clear to auscultation bilaterally and + wheezes (end expiratory wheezing heard posterior lung lao) Cardiovascular: Rate/Rhythm: regular rate and regular rhythm Heart Sounds: normal S1 and normal S2; no gallop, no murmur and no cardiac rub Vessels: no JVD Extremities: normal capillary refill; no edema Gastrointestinal (Abdomen): normal bowel sounds, soft, nontender, no hepatosplenomegaly Musculoskeletal: no cyanosis or clubbing, extremities motor strength 5/5 Skin: no rashes, warm and dry Neurologic: PERRL, EOMI, accommodation nl, no face palsy, no dysarthria Psychiatric: Orientation: alert and oriented x 3 Lymphatic: no cervical or axillary lymphadenopathy Results & Data ([facility]) Vital Signs (Past 12 Hours) Vital Signs Temp Pulse Resp BP Pulse Ox 11/04/19 07:12 85 18 92 11/04/19 07:03 36.6 C 86 20 157/76 H 92 11/04/19 01:12 89 18 94 Laboratory Results 11/04/19 11/04/19 Range/Units 05:18 05:18 WBC 6.86 (4.8-10.8) K/uL RBC 3.86 L (4.2-5.4) M/uL Hgb 12.2 (12.0-16.0) g/dL Hct 37.3 (37-47) % MCV 96.6 (80-100) fL MCH 31.6 (25-34) pg MCHC 32.7 (32-36) g/dL RDW Std Deviation 50.2 H (36.4-46.3) fL RDW Coeff of Noa 14.1 (11.5-14.5) % Plt Count 263 (130-400) K/uL MPV 10.2 (7.4-10.4) fL Sodium 143 (136-145) mmol/L Potassium 3.7 (3.5-5.1) mmol/L Chloride 114 H (98-107) mmol/L Carbon Dioxide 23 (21-32) mmol/L Anion Gap 6.0 (3-11) BUN 13 (7-18) mg/dl Creatinine 0.93 (0.6-1.2) mg/dl Est Cr Clr Drug Dosing 37.0 ml/min Est GFR ( Amer) 63.6 Est GFR (Non-Af Amer) 54.9 BUN/Creatinine Ratio 14.0 (10-20) Glucose 91 (70-99) mg/dl Calcium 8.3 L (8.5-10.1) mg/dl Diagnostic Findings CT Sinus w/o contrast IMPRESSION: 1. Mild mucosal thickening of the sinuses 2. The ostiomeatal units are patent bilaterally. PG Care Time/CCT Total # of Minutes Spent Total Time Spent with Patient: Total time spent is greater than 50% in coordination of care (as documented) at patient's floor/unit and/or counseling patient: Coding Level of Care Code 24061 Subseq Hosp Care Lvl 3 Diagnoses Pneumonia J18.9 Laterality: left Lung location: lower lobe of lung Pneumonia type: due to unspecified organism Elevated lactic acid level R79.89 Acute otitis media, right H66.91 CAD (coronary artery disease) I25.10 Associated angina: without angina Coronary Disease-Associated Artery/Lesion type: [place] artery [place] vs. transplanted heart: [place] heart Dyslipidemia E78.5 GERD (gastroesophageal reflux disease) K21.9 Esophagitis presence: esophagitis presence not specified Neurapraxia of peripheral nerve T14.8XXA CKD (chronic kidney disease), stage III N18.3 Cor pulmonale I27.81 Otalgia H92.09 Hypokalemia E87.6 DVT prophylaxis Z29.9 (1) CAD (coronary artery disease) Associated angina: without angina Coronary Disease-Associated Artery/Lesion type: [place] artery [place] vs. transplanted heart: [place] heart Qualified Code(s): I25.10 - Atherosclerotic heart disease of [place] coronary artery without angina pectoris (2) GERD (gastroesophageal reflux disease) Esophagitis presence: esophagitis presence not specified Qualified Code(s): K21.9 - Gastro-esophageal reflux disease without esophagitis (3) Pneumonia Laterality: left Lung location: lower lobe of lung Pneumonia type: due to unspecified organism Qualified Code(s): J18.9 - Pneumonia, unspecified organism
--- NOTE | 2019-11-04 14:31 | CT Scan Report ---
CT sinus wo con CT DOSE: 1463.61 mGy.cm HISTORY: Pain severe otalgia, hearing loss, AOM TECHNIQUE: Multiaxial CT images of the paranasal sinuses were performed and reformatted in the arteaga l plane without the use of contrast. A dose lowering technique was utilized adhering to the principl es of JOEY. COMPARISON: None. FINDINGS: Moderate mucosal thickening left maxillary sinus. Mild mucosal thickening right maxillary a s well as ethmoid sinuses. The ostiomeatal units are patent bilaterally. Moderate mucosal thickening of the right posterior sphe noid sinus. Frontal sinuses are clear. No evidence for bony destructive process. Visualized components of the mastoid air cells show slow structures to be clear. The nasal septum is midline. The orbits are unremarkable. IMPRESSION: 1. Mild mucosal thickening of the sinuses 2. The ostiomeatal units are patent bilaterally. ACT 112: Negative or not required by law. The above report was generated using voice recognition software. It may contain grammatical, syntax or spelling errors. Electronically signed by: Nishant Fields M.D. 11/04/2019 2:30 PM
[2019-11-04] MEDS: ACETIC AC/HYDROCORTISONE OTIC 10ML BTL OT SCH ×4 (15:29→23:50)
[2019-11-04] MEDS: LEVALBUTEROL HCL 0.63 MG/3 ML NEB NEB SCH (19:06)
[2019-11-05] MEDS: ACETAMINOPHEN 325 MG TAB PO PRN ×2 (00:07→21:04)
[2019-11-05] MEDS: LEVALBUTEROL HCL 0.63 MG/3 ML NEB NEB SCH ×4 (00:26→18:24)
[2019-11-05] MEDS: ACETIC AC/HYDROCORTISONE OTIC 10ML BTL OT SCH ×6 (05:19→23:58)
[2019-11-05 07:22] LABS: Basophils # (auto) 0.06 K/uL (0-0.2); Basophils % (auto) 0.5 %; Eosinophils # (auto) 0.17 K/uL (0-0.5); Eosinophils % (auto) 1.5 %; Hematocrit (blood only) 37.8 % (37-47); Hemoglobin 12.6 g/dL (12.0-16.0); Immature Granulocytes # (auto) 0.04 K/uL (0.00-0.02); Immature Granulocytes % (auto) 0.3 %; Lymphocytes # (auto) 1.14 K/uL (1.2-3.4); Lymphocytes % (auto) 9.9 %; Mean Corpuscular Hemoglobin 32.2 pg (25-34); Mean Corpuscular Hgb Conc 33.3 g/dL (32-36); Mean Corpuscular Volume 96.7 fL (80-100); Mean Platelet Volume 9.8 fL (7.4-10.4); Monocytes # (auto) 1.25 K/uL (0.11-0.59); Monocytes % (auto) 10.9 %; Neutrophils # (auto) 8.81 K/uL (1.4-6.5); Neutrophils % (auto) 76.9 %; Platelet Count 266 K/uL (130-400); RDW Coefficient of Variation 13.8 % (11.5-14.5); Red Blood Count 3.91 M/uL (4.2-5.4); White Blood Count 11.47 K/uL (4.8-10.8)
[2019-11-05 07:51] LABS: BUN Creatinine Ratio 20.8 (10-20); Calcium 8.4 mg/dl (8.5-10.1); Creatinine Clr Calc Pharmacy 44.2 ml/min; Est GFR (African American) 78.7; Est GFR (Non-African American) 67.9; Potassium 3.3 mmol/L (3.5-5.1)
[2019-11-05] MEDS: BENZONATATE 100 MG CAPSULE PO SCH ×3 (09:32→20:55)
[2019-11-05] MEDS: GABAPENTIN 100 MG CAP PO SCH ×3 (09:32→20:56)
[2019-11-05] MEDS: FUROSEMIDE 40 MG TAB PO SCH (09:32)
[2019-11-05] MEDS: DOCUSATE SODIUM 100 MG CAP PO SCH ×2 (09:32→20:55)
[2019-11-05] MEDS: guaiFENesin 600 MG TABCR PO SCH ×2 (09:32→20:56)
[2019-11-05] MEDS: ATORVASTATIN 40 MG TAB PO SCH (09:33)
[2019-11-05] MEDS: METOPROLOL SUCC 50MG EXT REL TAB PO SCH (09:33)
[2019-11-05] MEDS: ASPIRIN 81 MG ECTAB PO SCH (09:33)
[2019-11-05] MEDS: AMOXICILLIN/CLAVULANATE 875 MG TAB PO SCH ×2 (09:33→17:03)
[2019-11-05] MEDS: PANTOprazole 40 MG TAB PO SCH ×2 (09:33→20:56)
[2019-11-05] MEDS: CYANOCOBALAMIN 500 MCG TABLET (VITAMIN B-12) PO SCH (09:33)
[2019-11-05] MEDS: FLUTICASONE/VILANTEROL 100/25MCG 14 PUFFS/INHALER INH SCH (09:34)
[2019-11-05] MEDS: LIDOCAINE 5% 1 PATCH TD SCH ×2 (09:34→11:31)
[2019-11-05] MEDS ORDERED: POTASSIUM CHLORIDE 20 MEQ TABCR PO STA (09:59)
--- NOTE | 2019-11-05 11:48 | Hospitalist Progress Note ---
Date of Service November 05, 2019 Assessment & Plan (1) Pneumonia: * Recent hospitalization for bronchitis, treated with course of Augmentin. * CXR this admission showed bibasilar opacities c/w mild edema vs. aspiration/aspiration pneumonitis (infection not favored). * Influenza was negative; procal level also negative. * Received Zosyn x 48 hours; then converted to Augmentin x 5 days for coverage of acute otitis media, which will also cover bacterial infection/aspiration PNA although it is unlikely in setting of negative CXR and procal level. * Tessalon perles TID, Mucinex BID. Also on Breo-Ellipta. * Wheezing on exam 11/03 --> Changed nebs to levalbuterol Q6 scheduled. No wheezing appreciated on exam today, however with crackles * Aspiration precautions. Recently evaluated by speech, recommend minced and moist diet. * Given low grade temp (37.6C) and elevation in WBC (11.4k), will repeat CXR to see if possible atelectasis vs pneumonia, procalcitonin previously negative, repeat 0.07 -->> patient encouraged to utilize incentive spirometer, however daughter does not believe she is doing this as much when she is not consistently reminded --> Repeat CXR with cardiomegaly and mild pulm vasc congestion, slightly improved. suspected small L pleural effusion with associated left basilar opacities, likely atelectatic --> Further encouraged to utilize IS Q1H WA --> Continue to monitor vitals, CBC in AM * Of note, patient also with increased daytime sleepiness/snoring/mallampati III -- --> Overnight pulse ox with drop to low of 70%, total desaturation events ~13 minutes--> Will need O2 qHs at discharge (patient to be d/c to [facility]) (2) Elevated lactic acid level: * Lactic level increased to 2.6, now improved to <2. (3) Acute otitis media, right: * C/o right ear pain -- evidence of acute infection on exam. * Severe otalgia today -- CT sinuses obtained -- mild mucosal thickening of sinuses, ostiomeatal units patent bilaterally * Possibly related to viral infection/congestion leading to increased pressure but will cover for bacterial source with PO abx. * Augmentin BID x 5 days (received Zosyn x 2 days) -- did not choose Amoxicillin due to recent treatment with augmentin, may not respond to Amoxicillin therapy if used. * Initiated on Vosol otic for otalgia (4) CAD (coronary artery disease): * Chronic. Stable. Previous PCI with stenting. * Continue ASA, Metoprolol and Atorvastatin. (5) Dyslipidemia: * Chronic. Stable * Continue Atorvastatin. (6) GERD (gastroesophageal reflux disease): * Chronic. Stable * Continue 40mg protonix BID while inpatient -- she is on omeprazole 20mg BID as outpatient, non-formulary (7) Neurapraxia of peripheral nerve: * Continue Gabapentin 100mg TID. (8) CKD (chronic kidney disease), stage III: * eGFR 67.9, improved from baseline (~50s) * Cr 0.78 * Renally dose all meds., avoid nephrotic agents * BMP in AM (9) Cor pulmonale: * Noted on previous echo Sep 2019 -- EF >70%, but with RV pressure elevation and moderate dilation, moderate to severe RVH * possibly secondary to untreated PHYLLIS vs left sided diastolic CHF * CXR with pulmonary edema on admission * Monitor daily weights -- standing scale preferred * Monitor I&Os * Continue home lasix 40mg, metoprolol 50mg daily (10) Otalgia: * See above -- likely secondary to Otitis . See CT above * Ordered vosol Q4 OT for pain, given no evidence of TM rupture on exam * Continue to monitor (11) Hypokalemia: * K 3.3 on repeat -- additional 20meq given --> patient on 30meq daily, will resume (also on lasix daily, 40mg) * Repeat BMP in AM (12) DVT prophylaxis: * SCDs Dispo: therapy recommending return to [facility] (bed hold)--> Likely d/c wednesday. Will need O2 qHs Admission and Anticipated Discharge Date Admission Date: November 01, 2019 Supervising Physician Co-Signing Physician Notes PA Supervision Note: I did not personally see or examine the patient today, but I verified all byers points of WING Guthrie's assessment and plan with the following exceptions/additions: Patient may be having some volume overload based on review of chest x-ray and persistent crackles and hypoxia. Consider giving IV Lasix in the morning or increasing p.o. Lasix to twice daily tomorrow if not improving with incentive spirometry Subjective Patient with continued ear pain today. Minimal relief with otic drops with wick. Given abbe with relief this morning. Confirms a continued cough, non-productive. Denies fever but states she did have some chills. Noted low grade temp last evening on vital signs. Discussed obtaining repeat chest xray, but that CT sinuses was negative for acute process. Discussed findings of overnight pulse ox and that we can set patient up with oxygen at night, but that she may want a formal sleep study outpatient for probable underlying sleep apnea. Originally planning for discharge pending results of repeat chest xray, however patient's daughter does not feel patient stable for discharge today and would feel much more comfortable waiting until tomorrow. Discussed importance of only keeping inpatient as long as required but not longer due to risk of hospital acquired infection. Review of Systems Review of Systems: All systems reviewed & are unremarkable except as noted in HPI & below Physical Exam Constitutional: WD/WN, vitals as above Eyes: + anicteric sclerae; no conjunctival abnormality ENMT: Mallampati Class: III tragus tender to palpation of RIGHT ear. maxillary sinuses tender to palpation R>L Frontal sinuses nontender bilaterally external ears without obvious abnormality. Otic wick in place RIGHT ear Mouth: mmm Neck: trachea midline, no thyromegaly Respiratory: able to speak in complete sentences; no respiratory distress, no labored breathing and does not use accessory muscles Auscultation: + crackles (bibasilar crackles); no wheezes Cardiovascular: Rate/Rhythm: regular rate and regular rhythm Heart Sounds: normal S1 and normal S2; no gallop, no murmur and no cardiac rub Vessels: no JVD Extremities: normal capillary refill; no edema Gastrointestinal (Abdomen): normal bowel sounds, soft, nontender, no hepatosplenomegaly Musculoskeletal: no cyanosis or clubbing, extremities motor strength 5/5 Skin: no rashes, warm and dry Neurologic: PERRL, EOMI, accommodation nl, no face palsy, no dysarthria Psychiatric: Orientation: alert and oriented x 3 Lymphatic: no cervical or axillary lymphadenopathy Results & Data ([facility]) Vital Signs (Past 12 Hours) Vital Signs Temp Pulse Resp BP Pulse Ox 11/05/19 07:28 83 18 94 11/05/19 06:58 36.5 C 83 21 122/64 94 Laboratory Results 03/15/20 03/15/20 03/15/20 Range/Units 12:05 07:10 07:10 WBC 11.47 H (4.8-10.8) K/uL RBC 3.91 L (4.2-5.4) M/uL Hgb 12.6 (12.0-16.0) g/dL Hct 37.8 (37-47) % MCV 96.7 (80-100) fL MCH 32.2 (25-34) pg MCHC 33.3 (32-36) g/dL RDW Std Deviation 49.0 H (36.4-46.3) fL RDW Coeff of Noa 13.8 (11.5-14.5) % Plt Count 266 (130-400) K/uL MPV 9.8 (7.4-10.4) fL Immature Gran % (Auto) 0.3 % Neut % (Auto) 76.9 % Lymph % (Auto) 9.9 % [place] % (Auto) 10.9 % Eos % (Auto) 1.5 % Baso % (Auto) 0.5 % Immature Gran # (Auto) 0.04 H (0.00-0.02) K/uL Neut # (Auto) 8.81 H (1.4-6.5) K/uL Lymph # (Auto) 1.14 L (1.2-3.4) K/uL [place] # (Auto) 1.25 H (0.11-0.59) K/uL Eos # (Auto) 0.17 (0-0.5) K/uL Baso # (Auto) 0.06 (0-0.2) K/uL Sodium 141 (136-145) mmol/L Potassium 3.3 L (3.5-5.1) mmol/L Chloride 110 H (98-107) mmol/L Carbon Dioxide 25 (21-32) mmol/L Anion Gap 6.0 (3-11) BUN 16 (7-18) mg/dl Creatinine 0.78 (0.6-1.2) mg/dl Est Cr Clr Drug Dosing 44.2 ml/min Est GFR ( Amer) 78.7 Est GFR (Non-Af Amer) 67.9 BUN/Creatinine Ratio 20.8 H (10-20) Glucose 95 (70-99) mg/dl Calcium 8.4 L (8.5-10.1) mg/dl Procalcitonin 0.07 (0-0.5) ng/ml PG Care Time/CCT Total # of Minutes Spent Total Time Spent with Patient: Total time spent is greater than 50% in coord ination of care (as documented) at patient's floor/unit and/or counseling patient: Coding Level of Care Code 02700 Subseq Hosp Care Lvl 2 Diagnoses Pneumonia J18.9 Laterality: left Lung location: lower lobe of lung Pneumonia type: due to unspecified organism Elevated lactic acid level R79.89 Acute otitis media, right H66.91 CAD (coronary artery disease) I25.10 Associated angina: without angina Coronary Disease-Associated Artery/Lesion type: [place] artery [place] vs. transplanted heart: [place] heart Dyslipidemia E78.5 GERD (gastroesophageal reflux disease) K21.9 Esophagitis presence: esophagitis presence not specified Neurapraxia of peripheral nerve T14.8XXA CKD (chronic kidney disease), stage III N18.3 Cor pulmonale I27.81 Otalgia H92.09 Hypokalemia E87.6 DVT prophylaxis Z29.9 (1) CAD (coronary artery disease) Associated angina: without angina Coronary Disease-Associated Artery/Lesion type: [place] artery [place] vs. transplanted heart: [place] heart Qualified Code(s): I25.10 - Atherosclerotic heart disease of [place] coronary artery without angina pectoris (2) GERD (gastroesophageal reflux disease) Esophagitis presence: esophagitis presence not specified Qualified Code(s): K21.9 - Gastro-esophageal reflux disease without esophagitis (3) Pneumonia Laterality: left Lung location: lower lobe of lung Pneumonia type: due to unspecified organism Qualified Code(s): J18.9 - Pneumonia, unspecified organism
--- NOTE | 2019-11-05 14:39 | XRay Report ---
XR chest 1V portable CLINICAL HISTORY: cough, mild temp COMPARISON STUDY: 11/02/2019 FINDINGS: The heart is mildly enlarged. There is persistent mild elevation of interstitium suggesting mild pulmonary vascular congestion. There is a suspected small left pleural effusion with associated left basilar airspace opacities.[ IMPRESSION: 1. Cardiomegaly and mild pulmonary vascular congestion, slightly improved when compared the preceding study 2. Suspected small left pleural effusion with associated left basilar opacities, likely atelectatic 3. Old left-sided rib fractures ACT 112: Negative or not required by law. Electronically signed by: Tyler Iglesias M.D. 11/05/2019 2:38 PM
[2019-11-06] MEDS: LEVALBUTEROL HCL 0.63 MG/3 ML NEB NEB SCH ×3 (00:20→13:22)
[2019-11-06] MEDS: ACETIC AC/HYDROCORTISONE OTIC 10ML BTL OT SCH ×3 (03:49→12:38)
[2019-11-06] MEDS: AMOXICILLIN/CLAVULANATE 875 MG TAB PO SCH (07:58)
[2019-11-06] MEDS: CYANOCOBALAMIN 500 MCG TABLET (VITAMIN B-12) PO SCH (07:59)
[2019-11-06] MEDS: ATORVASTATIN 40 MG TAB PO SCH (08:00)
[2019-11-06] MEDS: METOPROLOL SUCC 50MG EXT REL TAB PO SCH (08:00)
[2019-11-06] MEDS: FUROSEMIDE 40 MG TAB PO SCH (08:00)
[2019-11-06] MEDS: guaiFENesin 600 MG TABCR PO SCH (08:01)
[2019-11-06] MEDS: ASPIRIN 81 MG ECTAB PO SCH (08:01)
[2019-11-06] MEDS: DOCUSATE SODIUM 100 MG CAP PO SCH (08:01)
[2019-11-06] MEDS: PANTOprazole 40 MG TAB PO SCH (08:02)
[2019-11-06] MEDS: GABAPENTIN 100 MG CAP PO SCH (08:02)
[2019-11-06] MEDS: BENZONATATE 100 MG CAPSULE PO SCH (08:02)
[2019-11-06] MEDS: FLUTICASONE/VILANTEROL 100/25MCG 14 PUFFS/INHALER INH SCH (08:03)
[2019-11-06] MEDS: LIDOCAINE 5% 1 PATCH TD SCH (08:18)
[2019-11-06] MEDS ORDERED: POTASSIUM CHLORIDE 10 MEQ TABCR PO SCH (09:00)
--- NOTE | 2019-11-06 12:55 | Discharge Summary ---
Date of Service November 06, 2019 Admission HPI Per Admitting Provider Patient resting comfortably, daughter at bedside. History obtained from daughter as patient is predominantly Portuguese speaking. iLz Boston is an 89yo C female with history of CAD/GERD/HLP presenting with cough/SOB and fever. Daughter reports that Fall 2018 the patient was admitted to the MICU in [place] for PNA. She was subsequently discharged to [facility]. She was recently admitted to [facility] 09/29 -10/06/19 with acute respiratory failure with hypoxia thought to be secondary to acute bronchitis and possible aspiration and mild PNA. She was treated with antibiotics, steroids, nebs, mucolytics and supplemental O2. She had a mildly elevated troponin during that admission. Echo with hyperdynamic LV, evidence of RV strain - thought to be secondary to underlying lung disease. CTA was negative for PE. She was discharged home to [facility] on 10/06/19. Her daughter reports that she was doing fairly well until 3-4 days ago when she developed a cough productive of clear/white sputum, unable to sleep due to cough. Also with weakness and chills. Daughter reports audible wheezing at times. [facility] reported a fever of 101 today. No additional complaints - specifically no CP/palpitations/abdominal pain/nausea/vomiting/diarrhea or constipation. Patient resides in [facility]. +sick contacts. Roommate recently diagnose with PNA and is doing well after treatment. Daughter is the only one that visits her. Daughter lives locally, no recent travel and has not been ill. No suspected exposure to Covid-19 given lack of travel history of exposure to high risk individuals. ER Course: Tylenol, Albuterol, Vancomycin, Zosyn Principal Diagnosis Pneumonia Discharge Exam Constitutional WD/WN, vitals as above Eyes PERRL, conjunctivae normal, anicteric sclerae ENMT Ears: + EAC abnormality (right ear erythematous, tender) and + TM abnormality (bilateral erythema) Nose: + sinus tenderness; no external nose abnormality, no nasal mucous membrane abnormality and no epistaxis Mouth: no oropharynx abnormality and no oral mucosal abnormality Neck trachea midline, no thyromegaly Respiratory normal respiratory effort, lungs clear to auscultation Cardiovascular RRR, no murmur, no edema Gastrointestinal (Abdomen) normal bowel sounds, soft, nontender, no hepatosplenomegaly Musculoskeletal no cyanosis or clubbing, extremities motor strength 5/5 Skin no rashes, warm and dry Neurologic patellar DTR's 2+ bilat, sensation intact and PERRL, EOMI, accommodation nl, no face palsy, no dysarthria Psychiatric A+Ox3, euthymic affect Lymphatic no cervical or axillary lymphadenopathy Discharge Data Allergies Allergy/AdvReac Type Severity Reaction Status Date / Time pregabalin [From Lyrica] Allergy Unknown Unknown Verified 11/01/19 22:37 Consultations 11/01/19 20:49 ED Decision to Admit Stat Ordered Studies 11/04/19 12:02 CT sinus wo con Routine Hospital Course (1) Pneumonia: * Recent hospitalization for bronchitis, treated with course of Augmentin. * CXR this admission showed bibasilar opacities c/w mild edema vs. aspiration/aspiration pneumonitis (infection not favored). * Influenza was negative; procal level also negative. * Received Zosyn x 48 hours; then converted to Augmentin x 5 days for coverage of acute otitis media, which will also cover bacterial infection/aspiration PNA although it is unlikely in setting of negative CXR and procal level. * Tessalon perles TID, Mucinex BID. Also on Breo-Ellipta. * Wheezing on exam 11/03 --> Changed nebs to levalbuterol Q6 scheduled. No wheezing appreciated on exam * Aspiration precautions. Recently evaluated by speech, recommend minced and moist diet. * Given low grade temp (37.6C) and elevation in WBC (11.4k), will repeat CXR to see if possible atelectasis vs pneumonia, procalcitonin previously negative, repeat 0.07 -->> patient encouraged to utilize incentive spirometer, however daughter does not believe she is doing this as much when she is not consistently reminded --> Repeat CXR with cardiomegaly and mild pulm vasc congestion, slightly improved. suspected small L pleural effusion with associated left basilar opacities, likely atelectatic --> Further encouraged to utilize IS Q1H WA --> Continue to monitor vitals, CBC in AM * Of note, patient also with increased daytime sleepiness/snoring/mallampati III -- --> Overnight pulse ox with drop to low of 70%, total desaturation events ~13 minutes--> Will need O2 qHs at discharge (patient to be d/c to [facility]) (2) Elevated lactic acid level: * Lactic level increased to 2.6, now improved to <2. (3) Acute otitis media, right: * C/o right ear pain -- evidence of acute infection on exam. * Severe otalgia -- CT sinuses obtained -- mild mucosal thickening of sinuses, ostiomeatal units patent bilaterally * Possibly related to viral infection/congestion leading to increased pressure but will cover for bacterial source with PO abx. * Augmentin BID x 5 days (received Zosyn x 2 days) -- did not choose Amoxicillin due to recent treatment with augmentin, may not respond to Amoxicillin therapy if used. * Initiated on Vosol otic for otalgia follow up with physician at [facility] (4) CAD (coronary artery disease): * Chronic. Stable. Previous PCI with stenting. * Continue ASA, Metoprolol and Atorvastatin. (5) Dyslipidemia: * Chronic. Stable * Continue Atorvastatin. (6) GERD (gastroesophageal reflux disease): * Chronic. Stable * Continue 40mg protonix BID while inpatient -- she is on omeprazole 20mg BID as outpatient, non-formulary (7) Neurapraxia of peripheral nerve: * Continue Gabapentin 100mg TID. (8) CKD (chronic kidney disease), stage III: * eGFR 67.9, improved from baseline (~50s) * Cr stable * Renally dose all meds., avoid nephrotic agents * BMP in AM (9) Cor pulmonale: * Noted on previous echo Sep 2019 -- EF >70%, but with RV pressure elevation and moderate dilation, moderate to severe RVH * possibly secondary to untreated PHYLLIS vs left sided diastolic CHF * CXR with pulmonary edema on admission * Monitor daily weights -- standing scale preferred * Monitor I&Os * Continue home lasix 40mg, metoprolol 50mg daily (10) Otalgia: * See above -- likely secondary to Otitis . See CT above * Ordered vosol Q4 OT for pain, given no evidence of TM rupture on exam * Continue to monitor (11) Hypokalemia: * K 3.3 on repeat -- additional 20meq given --> patient on 30meq daily, will resume (also on lasix daily, 40mg) Total Time Total Time Spent Total Time Spent (In Minutes): 32 minutes Total Time Includes: Examination of the Patient, Discharge Planning, Medication Reconciliation and Other (discussion with patient's family) Discharge Plan Discharge Items Patient Disposition: Transfer [facility] Reason For Visit: COUGH,SOB Discharge Diagnosis: Otitis media Bronchitis, likely viral Atelectasis on left with small left pleural effusion Condition on Discharge: Good Goals: complete course of Augmentin for otitis media improve strength and mobility Activity: Resume your previous activity Lifting: None Bathing: No limitations Exercise/Sports: Gradually increase as tolerated Weightbearing: Full weightbearing Non-emergency contact: Primary Care Provider Call non-emergency contact if: you have any medication questions, your symptoms worsen and you have a fever Follow-up/Referrals: [facility] [Primary Care Provider] - Diet: Heart Healthy Addtl Attending Provider Instructions: Medications: - AUGMENTIN: complete 5 more days, this is treatment for otitis media, not pneumonia - ALBUTEROL NEBULIZERS: every 6 hours as needed for shortness of breath, wheezing - MUCINEX: twice a day for 5 more days - HYDROCORTISONE-ACETIC ACID DROPS: every 4 hours in right ear Bronchitis, cough, dyspnea, nocturnal desaturations two separate chest x-rays do NOT show clear evidence of pneumonia patient has a small left pleural effusion with some compressive atelectasis lungs are clear on exam, procalcitonin negative x 2 sets discussed with patient and family, need to keep upright out of bed, in wheelchair as much as possible to keep lungs open Otitis media: diagnosed on ear exam and CT face/sinuses complete 5 more days of Augmentin continue ear drops most likely viral etiology but covering for bacterial Nocturnal desaturations: please apply 2L NC at bedtime try to wean as tolerated Please continue with PT/OT at [facility] Pending Studies at Discharge: No Stand-Alone Forms: My [facility] Skilled Items Patient informed of condition?: Yes DNR: No Discharge Level of Care: Skilled Communicable Disease: No Discharge Prognosis: Stable Lines: None Urinary Catheter: No Medications and DC Order Prescriptions: New albuterol sulfate 2.5 mg/0.5 mL Solution For Nebulization 2.5 mg NEB Q6H PRN (Reason: shortness of breath or wheezing) 7 Days Qty: 30 RF: 0 hydrocortisone-acetic acid 1-2 % Drops 3 drp otic (ear) Q4 7 Days Qty: 10 RF: 1 Continued acetaminophen [Tylenol] 325 mg Tablet 650 mg PO Q6H MDD 3 GMS APAP/24 HOURS PRN (Reason: Fever Or Pain) RF: 0 ondansetron HCl 4 mg Tablet 4 mg PO Q8H PRN (Reason: Nausea And Vomiting) RF: 0 naproxen 250 mg Tablet 250 mg PO Q8H PRN (Reason: Inflammation/Moderate Pain) RF: 0 aspirin 81 mg Tablet,Chewable 81 mg PO DAILY RF: 0 docusate sodium 100 mg Tablet 100 mg PO BID RF: 0 potassium chloride 10 mEq tablet,ER particles/crystals 30 meq PO DAILY RF: 0 PreserVision AREDS-2 [id number] ca-wope-[id number]-mg Capsule 1 cap PO BID RF: 0 Caltrate 600 plus D 600 mg (1,500 mg)-800 unit Tablet,Chewable 2 tab PO DAILY RF: 0 magnesium hydroxide [Milk of Magnesia] 400 mg/5 mL Suspension 30 ml PO DIRECTED PRN (Reason: Constipation) RF: 0 gabapentin 100 mg capsule 100 mg PO TID RF: 0 polyethylene glycol 3350 17 gram/dose Powder 17 g PO DAILY PRN (Reason: Constipation) RF: 0 Breo Ellipta 100-25 mcg/dose Blister With Device 1 ea inhalation DAILY Qty: 60 RF: 5 furosemide 40 mg tablet 40 mg PO DAILY Qty: 0 RF: 0 oxycodone 5 mg Tablet 5 mg PO Q6H PRN (Reason: Pain, Severe) Qty: 10 RF: 0 atorvastatin 40 mg tablet 40 mg PO DAILY RF: 0 metoprolol succinate 50 mg tablet extended release 24 hr 50 mg PO DAILY RF: 0 cyanocobalamin (vitamin B-12) 1,000 mcg Tablet 1,000 mcg PO DAILY RF: 0 Refresh Tears 0.5 % Drops 1 drp OPB BID RF: 0 omeprazole 20 mg capsule,delayed release(DR/EC) 20 mg PO BID RF: 0 lidocaine 4 % Adhesive Patch,Medicated 1 patch TOPICAL DAILY RF: 0 cholecalciferol (vitamin D3) 50 mcg (2,000 unit) Tablet 2,000 unit PO DAILY RF: 0 Discharge Orders: Discharge Order (Routine); Ordered 11/06/19 Ordered By: Frantz Swan Admission Data Admit Date/Time: 11/01/19 21:20 Attending Provider: Frantz Swan Admit Provider: April Belle Primary Care Provider: Tung Parson Other Interventions: Discharge Summary Assessment (RN) Last Done: 11/06/19 12:12 DC Date/Time DO NOT enter until pt leaves facility: 11/06/19 13:54 Coding Level of Care Code D/C Day Management >30 mins Diagnoses Pneumonia J18.9 Laterality: left Lung location: lower lobe of lung Pneumonia type: due to unspecified organism Elevated lactic acid level R79.89 Acute otitis media, right H66.91 CAD (coronary artery disease) I25.10 Associated angina: without angina Coronary Disease-Associated Artery/Lesion type: [place] artery [place] vs. transplanted heart: [place] heart Dyslipidemia E78.5 GERD (gastroesophageal reflux disease) K21.9 Esophagitis presence: esophagitis presence not specified Neurapraxia of peripheral nerve T14.8XXA CKD (chronic kidney disease), stage III N18.3 Cor pulmonale I27.81 Otalgia H92.09 Hypokalemia E87.6
== END 2019-11-06 13:54 | DRG 195 ==
LOC: ED 19:35 → SUATTDRO 21:20 → 4W 21:20

== ENCOUNTER 2020-06-16 04:09 | Inpatient (IN) ==
[2020-06-16] MEDS ORDERED: ONDANSETRON INJ 2 MG/ML 2 ML VIAL ONE (04:20)
[2020-06-16] MEDS ORDERED: ALBUT/IPRATROP 3MG/0.5MG NEB 3 ML VIAL ONE (04:20)
[2020-06-16] MEDS ORDERED: ONDANSETRON INJ 2 MG/ML 2 ML VIAL IV STA (04:41)
[2020-06-16] MEDS ORDERED: ACETAMINOPHEN 1,000 MG/100 ML VIAL IV STA (04:41)
--- NOTE | 2020-06-16 04:44 | Emergency Department Note ---
History of Present Illness General Chief complaint: Vomiting Stated complaint: SHORTNESS OF BREATH Time Seen by Provider: 06/16/20 04:13 Source: patient Mode of arrival: ambulatory Limitations: language barrier, altered mental status and patient cooperation History of Present Illness Provider complaint: Vomiting Quality: + constant Exacerbated By: + eating and + movement Associated symptoms: + loss of appetite, + malaise, + nausea/vomiting, + shortness of breath and + weakness Treatments prior to arrival: none This is an 89-year-old female brought in by EMS from her custodial after staff there concerned about shortness of breath following several episodes of vomiting. Patient does not speak Bulgarian and daughter arrived at bedside to help translate. Daughter states that patient had not been acting like her usual self over the last 3 days. She states that when she talked her over the phone earlier today but the patient had complained that they forgot to bring her lunch, so she ate several snacks that she had in her room in lieu of this over the afternoon. She states then at dinnertime they brought in both her lunch tray and a dinner tray. She states she was told by staff at the facility that after this the patient had multiple episodes of vomiting this evening. EMS reported that after patient had several episodes of vomiting staff there thought she appeared more short of breath and were concerned for aspiration which prompted them to call 911. At bedside with the daughter's assistance patient denies any specific abdominal pain states that she "hurts everywhere". Patient does admit to continued nausea, denies diarrhea. She was tested for coronavirus on Wednesday and was negative. Pt seen during a time of high acuity and national emergency pandemic while wearing PPE. Home Medications Home Medications Medication Instructions Recorded Confirmed Type atorvastatin 40 mg PO HS 05/21/19 06/16/20 History cyanocobalamin (vitamin B-12) 1,000 mcg PO .DAILY @ 129905/21/19 06/16/20 History metoprolol succinate 50 mg PO .DAILY @129905/21/19 06/16/20 History omeprazole 20 mg PO BID 05/21/19 06/16/20 History Caltrate 600 plus D 2 tab PO .DAILY @ 1300 09/29/19 06/16/20 History PreserVision AREDS-2 1 cap PO BID 09/29/19 06/16/20 History acetaminophen [Tylenol] 650 mg PO Q6H PRN MDD 3 GMS 09/29/19 06/16/20 History APAP/24 HOURS aspirin 81 mg PO .DAILY @ 1300 09/29/19 06/16/20 History docusate sodium 200 mg PO HS 09/29/19 06/16/20 History gabapentin 100 mg PO TID 09/29/19 06/16/20 History naproxen 250 mg PO Q8H PRN 09/29/19 06/16/20 History ondansetron HCl 4 mg PO Q8H PRN 09/29/19 06/16/20 History polyethylene glycol 3350 17 g PO DAILY PRN 09/29/19 06/16/20 History potassium chloride 10 meq PO .DAILY @ 1300 09/29/19 06/16/20 History cholecalciferol (vitamin D3) 2,000 unit PO .DAILY @ 1300 11/01/19 06/16/20 History Breo Ellipta 1 ea INHALATION .DAILY @ 129906/16/20 06/16/20 History albuterol sulfate 2.5 mg INHALATION Q6H PRN 06/16/20 06/16/20 History carbamide peroxide [Debrox] 2 drp OTB QID 06/16/20 06/16/20 History carboxymethylcellulose sodium 1 drp OPB BID 06/16/20 06/16/20 History [Refresh Plus] carboxymethylcellulose sodium 1 drp OPB Q2H PRN 06/16/20 06/16/20 History [Refresh Plus] furosemide 40 mg PO .DAILY @ 129906/16/20 06/16/20 History guaifenesin [Mucinex] 1,200 mg PO .DAILY @ 129906/16/20 06/16/20 History potassium chloride 20 meq PO .DAILY @ 129906/16/20 06/16/20 History promethazine [Phenergan] 25 mg IM Q6H PRN 06/16/20 06/16/20 History simethicone 80 mg PO Q8H PRN 06/16/20 06/16/20 History Allergies Allergy/AdvReac Type Severity Reaction Status Date / Time pregabalin [From Lyrica] Allergy Unknown Unknown Verified 06/16/20 04:40 Past Med/Surg History Medical History CAD (coronary artery disease) "s/p stent placement x 2 2005" Dyslipidemia GERD (gastroesophageal reflux disease) Neurapraxia of peripheral nerve (2012) UTI (urinary tract infection) Surgical History H/O foot surgery "L side; pins in ankle and foot" H/O heart artery stent (2005) x2 History of cholecystectomy S/P laser trabeculoplasty of eye Family History Other Family history non-contributory Social History Smoking Status: Never smoker Second Hand Exposure: No; Do You Dip or Chew Tobacco: No; Tobacco Cessation Education Requested by Patient: No Hx Alcohol Use: No Hx Substance Use: No Preferred Language: Ivorian Communication Ability: Effective Communication Tools: IPad Weight Guesser Required: Yes and Voice Beliefs That Will Affect Care: None marital status: Single Current Living Situation: [facility] Current Living Situation Comment: [facility] current occupational status: retired Other Information That Helps Us Care for You: No Feels Safe at Home: Yes Assistive Devices: Oxygen - Continuous Assistive Devices Comment: glasses and dentures are not here with the patient Review of Systems See HPI for pertinent positives & negatives. and A total of 6 systems reviewed and were otherwise negative (Limited by patient cooperation and language barrier) Physical Exam Vital Signs Vital Signs - 24 hr 06/16/20 06:05 06/16/20 06:06 06/16/20 06:10 Pulse Rate 91 H 91 H 91 H Pulse Rate [Right Finger] Pulse Rate from SpO2 Sensor 93 H 91 H 92 H Respiratory Rate 29 H 28 H 30 H Respiratory Effort / Characteristics Respiratory Depth Respiratory Pattern Blood Pressure 101/49 L Blood Pressure [Right Arm] Blood Pressure Mean 62 Blood Pressure Mean [Right Arm] Blood Pressure Position [Right Arm] Pulse Oximetry 97 98 98 Oxygen Delivery Method Nasal Cannula Nasal Cannula Nasal Cannula Oxygen Flow Rate 2 2 2 06/16/20 06:14 06/16/20 06:20 06/16/20 06:30 Pulse Rate 90 88 Pulse Rate [Right Finger] 90 Pulse Rate from SpO2 Sensor 91 H 89 Respiratory Rate 28 H 27 H 26 H Respiratory Effort / Characteristics Respiratory Depth Respiratory Pattern Blood Pressure 89/51 L Blood Pressure [Right Arm] 101/49 L Blood Pressure Mean 65 Blood Pressure Mean [Right Arm] 66 Blood Pressure Position [Right Arm] Pulse Oximetry 98 96 96 Oxygen Delivery Method Room Air Nasal Cannula Nasal Cannula Oxygen Flow Rate 2 2 06/16/20 06:31 06/16/20 06:40 06/16/20 06:50 Pulse Rate 89 89 91 H Pulse Rate [Right Finger] Pulse Rate from SpO2 Sensor 89 90 90 Respiratory Rate 26 H 25 H 25 H Respiratory Effort / Characteristics Respiratory Depth Respiratory Pattern Blood Pressure Blood Pressure [Right Arm] Blood Pressure Mean Blood Pressure Mean [Right Arm] Blood Pressure Position [Right Arm] Pulse Oximetry 96 95 95 Oxygen Delivery Method Nasal Cannula Nasal Cannula Nasal Cannula Oxygen Flow Rate 2 2 2 06/16/20 07:00 06/16/20 07:01 06/16/20 07:10 Pulse Rate 91 H 90 90 Pulse Rate [Right Finger] Pulse Rate from SpO2 Sensor 90 90 90 Respiratory Rate 27 H 24 29 H Respiratory Effort / Characteristics Respiratory Depth Respiratory Pattern Blood Pressure 98/59 L Blood Pressure [Right Arm] Blood Pressure Mean 80 Blood Pressure Mean [Right Arm] Blood Pressure Position [Right Arm] Pulse Oximetry 95 95 95 Oxygen Delivery Method Nasal Cannula Nasal Cannula Nasal Cannula Oxygen Flow Rate 2 2 2 06/16/20 07:20 06/16/20 07:30 06/16/20 07:31 Pulse Rate 87 87 88 Pulse Rate [Right Finger] Pulse Rate from SpO2 Sensor 87 87 88 Respiratory Rate 25 H 24 24 Respiratory Effort / Characteristics Respiratory Depth Respiratory Pattern Blood Pressure 111/61 Blood Pressure [Right Arm] Blood Pressure Mean 76 Blood Pressure Mean [Right Arm] Blood Pressure Position [Right Arm] Pulse Oximetry 94 95 95 Oxygen Delivery Method Nasal Cannula Nasal Cannula Nasal Cannula Oxygen Flow Rate 2 2 2 06/16/20 07:39 06/16/20 07:40 06/16/20 07:50 Pulse Rate 87 87 Pulse Rate [Right Finger] 88 Pulse Rate from SpO2 Sensor 87 87 Respiratory Rate 20 22 25 H Respiratory Effort / Characteristics Non-Labored Spontaneous Respiratory Depth Normal Respiratory Pattern Regular Blood Pressure Blood Pressure [Right Arm] 111/61 Blood Pressure Mean Blood Pressure Mean [Right Arm] 77 Blood Pressure Position [Right Arm] Lying Pulse Oximetry 95 95 95 Oxygen Delivery Method Room Air Nasal Cannula Nasal Cannula Oxygen Flow Rate 2 2 06/16/20 07:59 06/16/20 08:00 06/16/20 08:01 Pulse Rate 86 84 87 Pulse Rate [Right Finger] Pulse Rate from SpO2 Sensor 86 85 87 Respiratory Rate 26 H 24 25 H Respiratory Effort / Characteristics Respiratory Depth Respiratory Pattern Blood Pressure 100/57 L 102/58 L Blood Pressure [Right Arm] Blood Pressure Mean 68 71 Blood Pressure Mean [Right Arm] Blood Pressure Position [Right Arm] Pulse Oximetry 96 95 95 Oxygen Delivery Method Nasal Cannula Nasal Cannula Oxygen Flow Rate 2 2 06/16/20 08:10 06/16/20 08:20 06/16/20 08:30 Pulse Rate 87 87 86 Pulse Rate [Right Finger] Pulse Rate from SpO2 Sensor 87 86 86 Respiratory Rate 28 H 27 H 25 H Respiratory Effort / Characteristics Respiratory Depth Respiratory Pattern Blood Pressure 99/50 L Blood Pressure [Right Arm] Blood Pressure Mean 73 Blood Pressure Mean [Right Arm] Blood Pressure Position [Right Arm] Pulse Oximetry 96 96 96 Oxygen Delivery Method Nasal Cannula Nasal Cannula Oxygen Flow Rate 2 2 06/16/20 08:31 06/16/20 08:40 06/16/20 08:50 Pulse Rate 85 86 86 Pulse Rate [Right Finger] Pulse Rate from SpO2 Sensor 85 86 87 Respiratory Rate 26 H 28 H 25 H Respiratory Effort / Characteristics Respiratory Depth Respiratory Pattern Blood Pressure Blood Pressure [Right Arm] Blood Pressure Mean Blood Pressure Mean [Right Arm] Blood Pressure Position [Right Arm] Pulse Oximetry 96 96 96 Oxygen Delivery Method Oxygen Flow Rate 06/16/20 09:00 06/16/20 09:01 06/16/20 09:10 Pulse Rate 88 87 86 Pulse Rate [Right Finger] Pulse Rate from SpO2 Sensor 88 87 86 Respiratory Rate 27 H 29 H 32 H Respiratory Effort / Characteristics Respiratory Depth Respiratory Pattern Blood Pressure 105/59 L Blood Pressure [Right Arm] Blood Pressure Mean 80 Blood Pressure Mean [Right Arm] Blood Pressure Position [Right Arm] Pulse Oximetry 95 96 95 Oxygen Delivery Method Nasal Cannula Oxygen Flow Rate 2 06/16/20 09:20 Pulse Rate 84 Pulse Rate [Right Finger] Pulse Rate from SpO2 Sensor 85 Respiratory Rate 25 H Respiratory Effort / Characteristics Respiratory Depth Respiratory Pattern Blood Pressure Blood Pressure [Right Arm] Blood Pressure Mean Blood Pressure Mean [Right Arm] Blood Pressure Position [Right Arm] Pulse Oximetry 95 Oxygen Delivery Method Oxygen Flow Rate GENERAL: alert, ill appearing, well nourished, mild distress, non-toxic, obese EYE EXAM: normal conjunctiva, PERRL and EOM's grossly intact OROPHARYNX: no exudate, no erythema, lips, buccal mucosa, and tongue normal and mucous membranes are moist NECK: supple, no nuchal rigidity, no adenopathy, non-tender LUNGS: Clear to auscultation. Normal chest wall mechanics, no w/r, bibasilar Rales HEART: no murmurs, S1 normal and S2 normal ABDOMEN: abdomen soft, non-tender, normo-active bowel sounds, no masses, no rebound or guarding. Tympanic to percussion on the right side of the abdomen. BACK: Back is symmetrical on inspection and there is no deformity, no midline tenderness, no CVA tenderness. SKIN: no rashes and no bruising UPPER EXTREMITIES: upper extremities are grossly normal. FROM, nml pulses b/l. LOWER EXTREMITIES: No pitting edema. FROM, nml pulses b/l. NEURO EXAM: Normal sensorium, cranial nerves II-XII grossly intact, normal speech, no gross weakness of arms, no gross weakness of legs. Gross sensation intact. Course Administered Medications Aspirin (Aspirin 81 Mg Chew) 81 mg PO DAILY@1300 [facility] Stop: 07/16/20 12:59 Last Admin: 06/16/20 12:01 Dose: 81 mg Documented by: [id number] Atorvastatin Calcium (Atorvastatin 40 Mg Tab) 40 mg PO [facility] Stop: 07/16/20 20:59 Last Admin: 06/16/20 20:06 Dose: 40 mg Documented by: [id number] Docusate Sodium (Docusate Sodium 100 Mg Cap) 200 mg PO HS [facility] Stop: 07/16/20 20:59 Last Admin: 06/16/20 20:06 Dose: 200 mg Documented by: [id number] Fluticasone/Vilanterol (Fluticasone/Vilanterol 100/25mcg 14 Puffs/Inhaler) 1 puffs INH DAILY@1300 [facility] Stop: 07/16/20 12:59 Last Admin: 06/16/20 12:01 Dose: 1 puffs Documented by: [id number] Gabapentin (Gabapentin 100 Mg Cap) 100 mg PO TID [facility] Stop: 07/16/20 13:59 Last Admin: 06/16/20 20:06 Dose: 100 mg Documented by: [id number] Admin: 06/16/20 12:02 Dose: 100 mg Documented by: [id number] Guaifenesin (Guaifenesin 600 Mg Tabcr) 1,200 mg PO DAILY@1300 [facility] Stop: 07/16/20 12:59 Last Admin: 06/16/20 12:02 Dose: 1,200 mg Documented by: [id number] Ampicillin Sodium/Sulbactam Sodium 3,000 mg/ Sodium Chloride 108 mls @ 216 mls/hr IV Q12H [facility]; Protocol Stop: 06/23/20 11:59 Last Infusion: 06/17/20 00:55 Dose: 0 mls/hr Documented by: [id number] Admin: 06/17/20 00:14 Dose: 216 mls/hr Documented by: [id number] Infusion: 06/16/20 12:39 Dose: 0 mls/hr Documented by: [id number] Admin: 06/16/20 12:00 Dose: 216 mls/hr Documented by: [id number] Metoprolol Succinate (Metoprolol Succ 50mg Ext Rel Tab) 50 mg PO DAILY@1300 [facility] Stop: 07/16/20 12:59 Last Admin: 06/16/20 11:46 Dose: Not Given Documented by: [id number] Pantoprazole Sodium (Pantoprazole 40 Mg Tab) 40 mg PO BID [facility] Stop: 07/16/20 20:59 Last Admin: 06/16/20 20:06 Dose: 40 mg Documented by: [id number] Discontinued Medications Sodium Chloride (Nss 1000ml) 1,000 mls @ 125 mls/hr IV .Q8H [facility] Stop: 07/16/20 04:44 Last Infusion: 06/16/20 10:33 Dose: 0 mls/hr Documented by: [id number] Infusion: 06/16/20 08:13 Dose: 250 mls/hr Documented by: [id number] Admin: 06/16/20 04:51 Dose: 125 mls/hr Documented by: [id number] Acetaminophen (Ofirmev) 1,000 mg in 100 mls @ 400 mls/hr IV NOW STA Stop: 06/16/20 04:55 Last Infusion: 06/16/20 05:13 Dose: 0 mls/hr Documented by: [id number] Admin: 06/16/20 04:51 Dose: 400 mls/hr Documented by: [id number] Piperacillin Sod/Tazobactam Sod (Zosyn) 4.5 gm in 120 mls @ 240 mls/hr IV NOW ONE Stop: 06/16/20 07:45 Last Infusion: 06/16/20 08:13 Dose: 0 mls/hr Documented by: [id number] Admin: 06/16/20 07:38 Dose: 240 mls/hr Documented by: [id number] Lactated Ringer's (Lr) 500 mls @ 100 mls/hr IV .Q5H ONE Stop: 06/16/20 15:29 Last Infusion: 06/16/20 16:33 Dose: 0 mls/hr Documented by: [id number] Infusion: 06/16/20 12:39 Dose: 100 mls/hr Documented by: [id number] Infusion: 06/16/20 12:00 Dose: 0 mls/hr Documented by: [id number] Admin: 06/16/20 10:54 Dose: 100 mls/hr Documented by: [id number] Ioversol (Ioversol 100ml) 94 ml IV ONCE ONE Stop: 06/16/20 06:05 Last Admin: 06/16/20 06:04 Dose: 94 ml Documented by: [id number] Ondansetron HCl (Ondansetron Inj 2 Mg/Ml 2 Ml Vial) 4 mg IV NOW STA Stop: 06/16/20 04:42 Last Admin: 06/16/20 04:51 Dose: 4 mg Documented by: [id number] Medical Decision Making Differential Diagnosis Differential: Gastroenteritis, Food Borne, Esophageal Perforation, , Electrolyte Abnormality, Dehydration, Intraabdominal Infection, UTI/Pyelonephritis, Bowel Obstruction, Biliary Pathology, amongst other pathology entertained. Medical Records Attestation: I reviewed the patient's medical records. Home Medications Current Medication List: was personally reviewed by me Laboratory Data Attestation: I reviewed the patient's lab results. Result diagrams: 06/16/20 05:03 06/16/20 05:03 Lab Results 06/16/20 06/16/20 06/16/20 Range/Units 05:03 05:03 05:03 WBC 8.84 (4.8-10.8) K/uL RBC 4.38 (4.2-5.4) M/uL Hgb 14.3 (12.0-16.0) g/dL Hct 43.1 (37-47) % MCV 98.4 (80-100) fL MCH 32.6 (25-34) pg MCHC 33.2 (32-36) g/dL RDW Std Deviation 49.4 H (36.4-46.3) fL RDW Coeff of Noa 13.7 (11.5-14.5) % Plt Count 276 (130-400) K/uL MPV 10.5 H (7.4-10.4) fL Immature Gran % (Auto) 0.3 % Neut % (Auto) 86.0 % Lymph % (Auto) 4.3 % [place] % (Auto) 9.2 % Eos % (Auto) 0.1 % Baso % (Auto) 0.1 % Neut # (Auto) 7.60 H (1.4-6.5) K/uL Lymph # (Auto) 0.38 L (1.2-3.4) K/uL [place] # (Auto) 0.81 H (0.11-0.59) K/uL Eos # (Auto) 0.01 (0-0.5) K/uL Baso # (Auto) 0.01 (0-0.2) K/uL Immature Gran # (Auto) 0.03 H (0.00-0.02) K/uL Sodium 143 (136-145) mmol/L Potassium 4.0 (3.5-5.1) mmol/L Chloride 112 H (98-107) mmol/L Carbon Dioxide 25 (21-32) mmol/L Anion Gap 6.0 (3-11) BUN 30 H (7-18) mg/dl Creatinine 1.24 H (0.6-1.2) mg/dl Est Cr Clr Drug Dosing Not Reportable Est GFR ( Amer) 44.6 Est GFR (Non-Af Amer) 38.5 BUN/Creatinine Ratio 24.3 H (10-20) Glucose 157 H (70-99) mg/dl Lactate 5.2 H* (0.4-2.0) mmol/L Calcium 8.1 L (8.5-10.1) mg/dl Magnesium 1.8 (1.8-2.4) mg/dl Total Bilirubin 0.4 (0.2-1) mg/dl AST 13 L (15-37) U/L ALT 21 (12-78) U/L Alkaline Phosphatase 87 (45-117) U/L Troponin I 0.658 H* (0-0.045) ng/ml NT-Pro-B Natriuret Pep 568 (0-1800) pg/ml Total Protein 6.8 (6.4-8.2) gm/dl Albumin 2.9 L (3.4-5.0) gm/dl Globulin 3.9 (2.5-4.0) gm/dl Albumin/Globulin Ratio 0.7 L (0.9-2) Lipase 69 L (73-393) U/L Procalcitonin (0-0.5) ng/ml TSH 0.369 (0.300-4.500) uIu/ml Adenovirus (PCR) (NotDetected) B. pertussis DNA (PCR) (NotDetected) B.parapertussis DNA PCR (NotDetected) C. pneumoniae DNA (PCR) (NotDetected) Coronavirus OC43 (PCR) (NotDetected) Coronavirus HKU1 (PCR) (NotDetected) Coronavirus 229E (PCR) (NotDetected) COVID-19 PCR (NotDetected) Coronavirus NL63 (PCR) (NotDetected) Human Metapneumovir PCR (NotDetected) Influenza Type A (PCR) (NotDetected) Influenza Type B (PCR) (NotDetected) M. pneumoniae (PCR) (NotDetected) Parainfluenza 1 (PCR) (NotDetected) Parainfluenza 2 (PCR) (NotDetected) Parainfluenza 3 (PCR) (NotDetected) Parainfluenza 4 (PCR) (NotDetected) RSV (PCR) (NotDetected) Entero/Rhino (PCR) (NotDetected) 06/16/20 06/16/20 06/16/20 Range/Units 05:07 07:14 07:38 WBC (4.8-10.8) K/uL RBC (4.2-5.4) M/uL Hgb (12.0-16.0) g/dL Hct (37-47) % MCV (80-100) fL MCH (25-34) pg MCHC (32-36) g/dL RDW Std Deviation (36.4-46.3) fL RDW Coeff of Noa (11.5-14.5) % Plt Count (130-400) K/uL MPV (7.4-10.4) fL Immature Gran % (Auto) % Neut % (Auto) % Lymph % (Auto) % [place] % (Auto) % Eos % (Auto) % Baso % (Auto) % Neut # (Auto) (1.4-6.5) K/uL Lymph # (Auto) (1.2-3.4) K/uL [place] # (Auto) (0.11-0.59) K/uL Eos # (Auto) (0-0.5) K/uL Baso # (Auto) (0-0.2) K/uL Immature Gran # (Auto) (0.00-0.02) K/uL Sodium (136-145) mmol/L Potassium (3.5-5.1) mmol/L Chloride (98-107) mmol/L Carbon Dioxide (21-32) mmol/L Anion Gap (3-11) BUN (7-18) mg/dl Creatinine (0.6-1.2) mg/dl Est Cr Clr Drug Dosing Est GFR ( Amer) Est GFR (Non-Af Amer) BUN/Creatinine Ratio (10-20) Glucose (70-99) mg/dl Lactate 4.1 H* (0.4-2.0) mmol/L Calcium (8.5-10.1) mg/dl Magnesium (1.8-2.4) mg/dl Total Bilirubin (0.2-1) mg/dl AST (15-37) U/L ALT (12-78) U/L Alkaline Phosphatase (45-117) U/L Troponin I (0-0.045) ng/ml NT-Pro-B Natriuret Pep (0-1800) pg/ml Total Protein (6.4-8.2) gm/dl Albumin (3.4-5.0) gm/dl Globulin (2.5-4.0) gm/dl Albumin/Globulin Ratio (0.9-2) Lipase (73-393) U/L Procalcitonin 24.76 H (0-0.5) ng/ml TSH (0.300-4.500) uIu/ml Adenovirus (PCR) Not Detected (NotDetected) B. pertussis DNA (PCR) Not Detected (NotDetected) B.parapertussis DNA PCR Not Detected (NotDetected) C. pneumoniae DNA (PCR) Not Detected (NotDetected) Coronavirus OC43 (PCR) Not Detected (NotDetected) Coronavirus HKU1 (PCR) Not Detected (NotDetected) Coronavirus 229E (PCR) Not Detected (NotDetected) COVID-19 PCR Not Detected (NotDetected) Coronavirus NL63 (PCR) Not Detected (NotDetected) Human Metapneumovir PCR Not Detected (NotDetected) Influenza Type A (PCR) Not Detected (NotDetected) Influenza Type B (PCR) Not Detected (NotDetected) M. pneumoniae (PCR) Not Detected (NotDetected) Parainfluenza 1 (PCR) Not Detected (NotDetected) Parainfluenza 2 (PCR) Not Detected (NotDetected) Parainfluenza 3 (PCR) Not Detected (NotDetected) Parainfluenza 4 (PCR) Not Detected (NotDetected) RSV (PCR) Not Detected (NotDetected) Entero/Rhino (PCR) Not Detected (NotDetected) Imaging Data Radiologist's Impression: CT abdomen and pelvis with contrast: Patchy airspace disease seen in the left lower lobe, suggestive of aspiration pneumonia. No hydronephrosis. Small hiatal hernia. The bones are osteopenic. Mild compression changes seen in the T12 vertebral body. Atherosclerotic coronary vascular calcifications are seen. Cholecystectomy. Radiologist: Cesario Mcginnis MD ECG Data Attestation: I personally reviewed and interpreted this ECG as follows: Indication: + vomiting Rate (beats per minute): 110 Rhythm: + sinus tachycardia ECG Intervals/blocks: + Right Bundle branch block and + Prolonged QT ECG [place]: + Normal ECG ST segments: + Nonspecific ST abnormalities Blood Pressure Blood Pressure Findings: Elevated blood pressure Blood Pressure Disposition: further management by hospitalist MIGEL Narrative This is an 89-year-old female brought in due to nausea vomiting and shortness of breath as perceived by staff at the assisted living facility where she resides. Patient ill-appearing here on presentation, complained of generalized abdominal discomfort, and mild tympany with percussion was noted during exam. Due to this, initial concern for acute GI pathology. Labs were drawn and sent, and patient sent for CT of the abdomen and pelvis. IV fluids started and Zofran given for her nausea. Chest x-ray also performed and was reassuring, no obvious infiltrate or pulmonary edema was noted. CT of the abdomen and pelvis however did show a left lower lobe infiltrate, no other acute GI pathology. As labs begin to result, patient with a stable H&H, mild acute kidney injury noted, however significantly lactic acidemia was noted at greater than 5. This was r epeated and was down to 4. Patient was covered for possible aspiration given the history of vomiting with Zosyn. Eventually procalcitonin resulted as elevated also. Patient remained hemodynamically stable in the emergency room. She did have one episode where her oxygen on room air dropped to 88-89%, so she was placed on 2 L via nasal cannula and continued to maintain oxygen saturations in the mid 90s. Patient's daughter who assists with translation was updated at bedside. We discussed additional inpatient monitoring and treatment when she was in agreement with plan. Discussed likely pneumonia contributing to abnormal lab levels and even GI symptoms, although she relays no prior history of dysphagia or aspiration. Patient has previously had outpatient vaccinations for pneumonia. Patient was recently tested for coronavirus and was found to be negative. Did discuss with her concern for evolving sepsis given elevated lactic acid and procalcitonin. Blood cultures were drawn and sent. Case discussed with hospitalist. An order was placed for continuous cardiac monitoring. The monitor shows a rate of 66 with _normal sinus_ rhythm. Impression & Plan Nausea & vomiting, Pneumonia, MARIE (acute kidney injury), Elevated troponin, Acidosis, lactic Discharge Plan Visit Data Chief Complaint: Vomiting Stated Complaint: SHORTNESS OF BREATH ED Provider: Alessandra Lopez Discharge Problem: Nausea & vomiting, Pneumonia, MARIE (acute kidney injury), Elevated troponin, Acidosis, lactic Patient Disposition: Admitted As Inpatient Discharge Instructions Interventions: ED Discharge Assessment Last Done: 06/16/20 09:54 Discharge Problem: Nausea & vomiting Qualifiers: Vomiting type: unspecified Vomiting Intractability: non-intractable Qualified Code(s): R11.2 - Nausea with vomiting, unspecified Pneumonia Qualifiers: Pneumonia type: due to unspecified organism Laterality: left Lung location: lower lobe of lung Qualified Code(s): J18.9 - Pneumonia, unspecified organism
[2020-06-16] MEDS ORDERED: SODIUM CHLORIDE 0.9% 1000ML 1,000 ML IV SCH (04:45)
[2020-06-16 05:19] LABS: Basophils # (auto) 0.01 K/uL (0-0.2); Basophils % (auto) 0.1 %; Eosinophils # (auto) 0.01 K/uL (0-0.5); Eosinophils % (auto) 0.1 %; Hematocrit (blood only) 43.1 % (37-47); Hemoglobin 14.3 g/dL (12.0-16.0); Immature Granulocytes # (auto) 0.03 K/uL (0.00-0.02); Immature Granulocytes % (auto) 0.3 %; Lymphocytes # (auto) 0.38 K/uL (1.2-3.4); Lymphocytes % (auto) 4.3 %; Mean Corpuscular Hemoglobin 32.6 pg (25-34); Mean Corpuscular Hgb Conc 33.2 g/dL (32-36); Mean Corpuscular Volume 98.4 fL (80-100); Mean Platelet Volume 10.5 fL (7.4-10.4); Monocytes # (auto) 0.81 K/uL (0.11-0.59); Monocytes % (auto) 9.2 %; Platelet Count 276 K/uL (130-400); RDW Coefficient of Variation 13.7 % (11.5-14.5); RDW Standard Deviation 49.4 fL (36.4-46.3); Red Blood Count 4.38 M/uL (4.2-5.4); White Blood Count 8.84 K/uL (4.8-10.8)
[2020-06-16 05:36] LABS: Alanine Aminotransferase 21 U/L (12-78); Albumin Level 2.9 gm/dl (3.4-5.0); Aspartate Aminotransferase 13 U/L (15-37); BUN Creatinine Ratio 24.3 (10-20); Blood Urea Nitrogen 30 mg/dl (7-18); Calcium 8.1 mg/dl (8.5-10.1); Carbon Dioxide 25 mmol/L (21-32); Chloride 112 mmol/L (98-107); Est GFR (African American) 44.6; Est GFR (Non-African American) 38.5; Glucose 157 mg/dl (70-99); Lipase 69 U/L (73-393); Magnesium 1.8 mg/dl (1.8-2.4); Sodium 143 mmol/L (136-145)
[2020-06-16 05:53] LABS: Albumin Globulin Ratio 0.7 (0.9-2); Alkaline Phosphatase 87 U/L (45-117); Bilirubin,Total 0.4 mg/dl (0.2-1); Globulin 3.9 gm/dl (2.5-4.0); NT Pro B Type Natriuretic Pept 568 pg/ml (0-1800); Thyroid Stimulating Hormone 0.369 uIu/ml (0.300-4.500); Total Protein 6.8 gm/dl (6.4-8.2); Troponin I 0.658 ng/ml (0-0.045)
[2020-06-16] MEDS ORDERED: IOVERSOL 100ml IV ONE (06:04)
[2020-06-16] MEDS ORDERED: PIPERACILLIN/TAZOBACTAM 4.5 GM/120 ML BAG IV ONE (07:16)
[2020-06-16] MEDS ORDERED: PIPERACILL/TAZOBAC CONSULT ACTIVE PRN (07:16)
--- NOTE | 2020-06-16 08:09 | CT Scan Report ---
CT OF THE ABDOMEN AND PELVIS WITH CONTRAST CLINICAL HISTORY: Vomiting. COMPARISON STUDY: CT of the abdomen and pelvis May 21, 2019. Abdominal series June 16, 2020 . TECHNIQUE: Following IV administration of 94 mL of Optiray-320, axial images of the abdomen and pelvi s were obtained from the lung bases to the proximal femurs. Images were reviewed in the axial, sagitt al, and coronal planes. IV contrast was administered without complication. Automated exposure contro l was utilized for the study. A dose lowering technique was utilized adhering to the principles of A JOS. CT DOSE: 1347.41 mGy.cm FINDINGS: Imaged portions lower chest demonstrate moderate left lower lobe airspace opacity. Moderate cardiomegaly is noted. This exam is compromised by motion artifact. No pneumatosis, free air or port al venous gas is present. There is no significant biliary ductal dilatation status post cholecystecto my. The liver, spleen, adrenal glands, kidneys and pancreas are unremarkable with exception of modera te renal atrophy. 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 There is extensive plaque of the abdominal ao rta. No lymphadenopathy is present. There is no ascites. The caliber and wall thickness of small and large bowel are normal. Old T12 compression fracture is noted. There is no acute fracture or suspicio us lesion within visualized skeletal structures. There is sigmoid diverticulosis without evidence for acute diverticulitis. IMPRESSION: 1. Left lower lobe airspace opacity which favors pneumonia or aspiration. 2. No acute process within the abdomen or pelvis although exam compromised by motion artifact. 3. Colonic diverticulosis without evidence for acute diverticulitis. No bowel obstruction. ACT 112: Negative or not required by law. Electronically signed by: Teodoro Ch M.D. 06/16/2020 8:08 AM
--- NOTE | 2020-06-16 08:14 | XRay Report ---
PA CHEST RADIOGRAPH AND UPRIGHT AND SUPINE AP RADIOGRAPHS OF THE ABDOMEN CLINICAL HISTORY: sob, vomiting COMPARISON STUDY: Chest radiograph November 05, 2019. CT of the abdomen and pelvis May 21, 2019. FINDINGS: Left lower lung airspace opacity is noted. There is moderate cardiomegaly. There is no pne umothorax or pleural effusion. Old left rib fractures are noted. There is no free air. There is no ev idence for a bowel obstruction. IMPRESSION: 1. No free air or evidence of bowel obstruction. 2. Left lower lung airspace opacity which favors pneumonia. ACT 112: Negative or not required by law. Electronically signed by: Teodoro Ch M.D. 06/16/2020 8:12 AM
[2020-06-16 08:44] LABS: Adenovirus PCR Not Detected (NotDetected); Bordetella parapertussis PCR Not Detected (NotDetected); Bordetella pertussis PCR Not Detected (NotDetected); Chlamydia pneumoniae PCR Not Detected (NotDetected); Coronavirus 229E PCR Not Detected (NotDetected); Coronavirus CoV-2 (COVID19)PCR Not Detected (NotDetected); Coronavirus HKU1 PCR Not Detected (NotDetected); Coronavirus NL63 PCR Not Detected (NotDetected); Coronavirus OC43PCR Not Detected (NotDetected); Human Metapneumovirus PCR Not Detected (NotDetected); Influenza A PCR Not Detected (NotDetected); Influenza B PCR Not Detected (NotDetected); Mycoplasma pneumoniae PCR Not Detected (NotDetected); Parainfluenza Virus 1 PCR Not Detected (NotDetected); Parainfluenza Virus 2 PCR Not Detected (NotDetected); Parainfluenza Virus 3 PCR Not Detected (NotDetected); Parainfluenza Virus 4 PCR Not Detected (NotDetected); Respiratory Syncytial VirusPCR Not Detected (NotDetected); Rhinovirus/Enterovirus PCR Not Detected (NotDetected)
[2020-06-16] MEDS ORDERED: LACTATED RINGER'S 500 ML IV ONE (10:30)
[2020-06-16] MEDS ORDERED: ONDANSETRON INJ 2 MG/ML 2 ML VIAL IV PRN (10:30)
[2020-06-16] MEDS ORDERED: PATIENT'S HEIGHT AND/OR WEIGHT NEEDED SCH (11:00)
[2020-06-16] MEDS: METOPROLOL SUCC 50MG EXT REL TAB PO SCH (11:46)
[2020-06-16] MEDS: AMPICILLIN/SULBACTAM SOD 3,000 MG in 0.9 % SODIUM CHLORIDE 100 ML IV SCH (12:00)
[2020-06-16] MEDS: FLUTICASONE/VILANTEROL 100/25MCG 14 PUFFS/INHALER INH SCH (12:01)
[2020-06-16] MEDS: ASPIRIN 81 MG CHEW PO SCH (12:01)
[2020-06-16] MEDS: guaiFENesin 600 MG TABCR PO SCH (12:02)
[2020-06-16] MEDS: GABAPENTIN 100 MG CAP PO SCH ×2 (12:02→20:06)
--- NOTE | 2020-06-16 17:52 | History & Physical Report ---
Date of Service June 16, 2020 Assessment & Plan (1) Aspiration pneumonia: CXR and CT a/p on 06/16 showed focal consolidation in the LLL. Given history of vomiting and aspiration, will treat as such. - Continue Unasyn - DuoNebs PRN - Continue home Breo - Supplemental O2 as needed for O2 sat > 90%. - RETAIL PHARMACY TECHNICIAN consult as the daughter reports chronic coughing when eating. 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 - Cr up to 1.24 on admission; likely pre-renal in the setting of sepsis. - IV fluids gently. - Monitor (3) Elevated troponin: Troponin up to 0.66 on admission. No chest pain. EKG showed some <1mm ST depressions in the lateral leads. - Trend troponins and EKGs - Will discuss with cardiology, but presently feel this is demand ischemia and will likely require no further inpatient work-up. (4) Sepsis: While she doesn't meet SIRS criteria, her lactate was 5.2 on admission and she met qSOFA criteria. Coming down with gentle IV fluids. - Monitor (5) CAD (coronary artery disease): S/p 2 stents. - Continue ASA, beta-nellie, statin (6) GERD (gastroesophageal reflux disease): - Continue PPI (7) DVT prophylaxis: SCDs - Low DVT risk per admission calculator Admission and Anticipated Discharge Date Admission Date: June 16, 2020 History of Present Illness Primary Care Provider: [place] [facility] 89yo F w/ hx of COPD who presents for aspiration pneumonia. She speaks only [place], and the daughter provides translation. The daughter reports that her mother has been more lethargic and not herself for at least 3 or so days. On Wednesday, she noted her mother was having more trouble participating in PT at [facility], but otherwise had no focal complaints. On Wednesday, the patient reported to her daughter some substernal chest discomfort, but otherwise this appears to have resolved. The patient has a chronic cough and sometimes the patient coughs with food per the daughter. She was sent in because last night she had emesis x 3-4. This morning, her cough was more pronounced, and she was mildly hypoxemic. The patient for her part denies any present symptoms apart from her thick cough. Reports no fevers/chills, chest pain, shortness of breath, abdominal pain, nausea, or vomiting. Allergies Allergy/AdvReac Type Severity Reaction Status Date / Time pregabalin [From Lyrica] Allergy Unknown Unknown Verified 06/16/20 04:40 Home Medications Home Medications Medication Instructions Recorded Confirmed Type atorvastatin 40 mg PO HS 05/21/19 06/16/20 History cyanocobalamin (vitamin B-12) 1,000 mcg PO .DAILY @ 129905/21/19 06/16/20 History metoprolol succinate 50 mg PO .DAILY @129905/21/19 06/16/20 History omeprazole 20 mg PO BID 05/21/19 06/16/20 History Caltrate 600 plus D 2 tab PO .DAILY @ 129909/29/19 06/16/20 History PreserVision AREDS-2 1 cap PO BID 09/29/19 06/16/20 History acetaminophen [Tylenol] 650 mg PO Q6H PRN MDD 3 GMS 09/29/19 06/16/20 History APAP/24 HOURS aspirin 81 mg PO .DAILY @ 129909/29/19 06/16/20 History docusate sodium 200 mg PO HS 09/29/19 06/16/20 History gabapentin 100 mg PO TID 09/29/19 06/16/20 History naproxen 250 mg PO Q8H PRN 09/29/19 06/16/20 History ondansetron HCl 4 mg PO Q8H PRN 09/29/19 06/16/20 History polyethylene glycol 3350 17 g PO DAILY PRN 09/29/19 06/16/20 History potassium chloride 10 meq PO .DAILY @ 129909/29/19 06/16/20 History cholecalciferol (vitamin D3) 2,000 unit PO .DAILY @ 129911/01/19 06/16/20 History Breo Ellipta 1 ea INHALATION .DAILY @ 129906/16/20 06/16/20 History albuterol sulfate 2.5 mg INHALATION Q6H PRN 06/16/20 06/16/20 History carbamide peroxide [Debrox] 2 drp OTB QID 06/16/20 06/16/20 History carboxymethylcellulose sodium 1 drp OPB BID 06/16/20 06/16/20 History [Refresh Plus] carboxymethylcellulose sodium 1 drp OPB Q2H PRN 06/16/20 06/16/20 History [Refresh Plus] furosemide 40 mg PO .DAILY @ 1300 06/16/20 06/16/20 History guaifenesin [Mucinex] 1,200 mg PO .DAILY @ 1300 06/16/20 06/16/20 History potassium chloride 20 meq PO .DAILY @ 1300 06/16/20 06/16/20 History promethazine [Phenergan] 25 mg IM Q6H PRN 06/16/20 06/16/20 History simethicone 80 mg PO Q8H PRN 06/16/20 06/16/20 History Past Med/Surg History Medical History CAD (coronary artery disease) "s/p stent placement x 2 2005" Dyslipidemia GERD (gastroesophageal reflux disease) Neurapraxia of peripheral nerve (2012) UTI (urinary tract infection) Surgical History H/O foot surgery "L side; pins in ankle and foot" H/O heart artery stent (2005) x2 History of cholecystectomy S/P laser trabeculoplasty of eye Family History Other Family history non-contributory Social History Smoking Status: Never smoker Second Hand Exposure: No; Do You Dip or Chew Tobacco: No; Tobacco Cessation Education Requested by Patient: No Hx Alcohol Use: No Hx Substance Use: No Preferred Language: [place] Communication Ability: Effective Communication Tools: IPad, Facial Expression, Physical Gestures and Lip Movement/Reading Electric Serviceman Required: Yes and Voice Beliefs That Will Affect Care: None marital status: Single Current Living Situation: Jail Current Living Situation Comment: [facility] current occupational status: retired Other Information That Helps Us Care for You: No Feels Safe at Home: Yes Assistive Devices: Oxygen - Continuous Assistive Devices Comment: glasses and dentures are not here with the patient Review of Systems Review of Systems: All systems reviewed & are unremarkable except as noted in HPI & below Physical Exam Constitutional: WD/WN, vitals as above Eyes: EOM intact bilaterally; no conjunctival abnormality ENMT: external ear and nose normal, oropharynx normal Neck: trachea midline, no thyromegaly normal visual inspection Respiratory: normal respiratory effort, lungs clear to auscultation no respiratory distress Cardiovascular: RRR, no murmur, no edema Gastrointestinal (Abdomen): Inspection/Auscultation: abdomen normal to inspection; abdomen not distended Musculoskeletal: no cyanosis or clubbing, extremities motor strength 5/5 Skin: no rashes, warm and dry Neurologic: moves all extremities and awake Psychiatric: Orientation: alert, oriented to person and cooperative Results & Data Results & Data ([facility]) Vital Signs (Past 12 Hours) Vital Signs Temp Pulse Pulse Resp BP BP Pulse Ox 06/16/20 15:00 88 06/16/20 13:00 88 110/67 06/16/20 12:06 37.2 C 87 20 108/67 95 06/16/20 10:23 37.2 C 87 20 98/61 L 94 06/16/20 09:20 84 25 H 95 06/16/20 09:10 86 32 H 95 06/16/20 09:01 87 29 H 96 06/16/20 09:00 88 27 H 105/59 L 95 06/16/20 08:50 86 25 H 96 06/16/20 08:40 86 28 H 96 06/16/20 08:31 85 26 H 96 06/16/20 08:30 86 25 H 99/50 L 96 06/16/20 08:20 87 27 H 96 06/16/20 08:10 87 28 H 96 06/16/20 08:01 87 25 H 95 06/16/20 08:00 84 24 102/58 L 95 06/16/20 07:59 86 26 H 100/57 L 96 06/16/20 07:50 87 25 H 95 06/16/20 07:40 87 22 95 06/16/20 07:39 88 20 111/61 95 06/16/20 07:31 88 24 95 06/16/20 07:30 87 24 111/61 95 06/16/20 07:20 87 25 H 94 06/16/20 07:10 90 29 H 95 06/16/20 07:01 90 24 95 06/16/20 07:00 91 H 27 H 98/59 L 95 06/16/20 06:50 91 H 25 H 95 06/16/20 06:40 89 25 H 95 06/16/20 06:31 89 26 H 96 06/16/20 06:30 88 26 H 89/51 L 96 06/16/20 06:20 90 27 H 96 06/16/20 06:14 90 28 H 101/49 L 98 06/16/20 06:10 91 H 30 H 98 06/16/20 06:06 91 H 28 H 101/49 L 98 06/16/20 06:05 91 H 29 H 97 Code Status & VTE Plan VTE Prophylaxis Plan VTE Prophylaxis will be ordered: Yes PG Care Time/CCT Total # of Minutes Spent Total Time Spent with Patient: Total time spent is greater than 50% in coordination of care (as documented) at patient's floor/unit and/or counseling patient: Coding Level of Care Code 47657 Initial Inpt Care Lvl 3 Diagnoses Aspiration pneumonia J69.0 MARIE (acute kidney injury) N17.9 Elevated troponin R77.8 Sepsis A41.9 CAD (coronary artery disease) I25.10 Coronary Disease-Associated Artery/Lesion type: [place] artery [place] vs. transplanted heart: [place] heart Associated angina: without angina GERD (gastroesophageal reflux disease) K21.9 Esophagitis presence: esophagitis presence not specified DVT prophylaxis Z29.9 (1) CAD (coronary artery disease) Coronary Disease-Associated Artery/Lesion type: [place] artery [place] vs. transplanted heart: [place] heart Associated angina: without angina Qualified Code(s): I25.10 - Atherosclerotic heart disease of [place] coronary artery without angina pectoris (2) GERD (gastroesophageal reflux disease) Esophagitis presence: esophagitis presence not specified Qualified Code(s): K21.9 - Gastro-esophageal reflux disease without esophagitis
[2020-06-16] MEDS: PANTOprazole 40 MG TAB PO SCH (20:06)
[2020-06-16] MEDS: DOCUSATE SODIUM 100 MG CAP PO SCH (20:06)
[2020-06-16] MEDS: ATORVASTATIN 40 MG TAB PO SCH (20:06)
[2020-06-17] MEDS: AMPICILLIN/SULBACTAM SOD 3,000 MG in 0.9 % SODIUM CHLORIDE 100 ML IV SCH ×2 (00:14→12:44)
--- NOTE | 2020-06-17 06:09 | Electrocardiogram Report ---
Test Reason : Blood Pressure : / mmHG Vent. 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
[2020-06-17 06:48] LABS: Hematocrit (blood only) 34.9 % (37-47); Hemoglobin 11.4 g/dL (12.0-16.0); Mean Corpuscular Hemoglobin 32.6 pg (25-34); Mean Corpuscular Hgb Conc 32.7 g/dL (32-36); Mean Corpuscular Volume 99.7 fL (80-100); Mean Platelet Volume 10.6 fL (7.4-10.4); Platelet Count 221 K/uL (130-400); RDW Coefficient of Variation 14.4 % (11.5-14.5); RDW Standard Deviation 51.5 fL (36.4-46.3); White Blood Count 12.17 K/uL (4.8-10.8)
[2020-06-17 07:12] LABS: BUN Creatinine Ratio 26.2 (10-20); Calcium 7.4 mg/dl (8.5-10.1); Creatinine Clr Calc Pharmacy 32.4 ml/min; Est GFR (African American) 52.7; Est GFR (Non-African American) 45.5; Magnesium 1.9 mg/dl (1.8-2.4); Potassium 3.6 mmol/L (3.5-5.1)
[2020-06-17] MEDS: GABAPENTIN 100 MG CAP PO SCH ×3 (08:43→20:20)
[2020-06-17] MEDS: ASPIRIN 81 MG CHEW PO SCH (08:43)
[2020-06-17] MEDS: PANTOprazole 40 MG TAB PO SCH ×2 (08:43→20:20)
[2020-06-17] MEDS: METOPROLOL SUCC 50MG EXT REL TAB PO SCH (08:44)
[2020-06-17] MEDS: guaiFENesin 600 MG TABCR PO SCH (08:44)
[2020-06-17] MEDS: FLUTICASONE/VILANTEROL 100/25MCG 14 PUFFS/INHALER INH SCH (08:44)
[2020-06-17] MEDS: ACETAMINOPHEN 325 MG TAB PO PRN (08:51)
--- NOTE | 2020-06-17 12:10 | Fluoroscopy Report ---
FL video swallow HISTORY: Assess for aspiration TECHNIQUE: Video fluoroscopic evaluation of swallowing was performed in the AP and lateral projection s by the speech pathology staff. The patient is fed nectar-thick and thin liquid barium, a barium coa tamiko wafer, and barium pudding. FLUOROSCOPY TIME: 3.5 minutes. A cine loop submitted. COMPARISON STUDY: None. FINDINGS: There is normal hyoid excursion and epiglottic deflection. A few episodes of penetration wi th the thin liquid barium only. No aspiration identified. Mild esophageal dysmotility. IMPRESSION: 1. No aspiration identified. 2. Please see the speech pathologist report for detailed findings and recommendations. ACT 112: Negative or not required by law. Electronically signed by: Jason Sampson M.D. 06/17/2020 12:08 PM
--- NOTE | 2020-06-17 13:55 | Hospitalist Progress Note ---
Date of Service June 17, 2020 Assessment & Plan (1) Aspiration pneumonia: CXR and CT a/p on 06/16 showed focal consolidation in the LLL. Given history of vomiting and aspiration, will treat as such. - Continue Unasyn - DuoNebs PRN - Continue home Breo - Supplemental O2 as needed for O2 sat > 90%. - PERFORMANCE IMPROVEMENT DIRECTOR consulted - Seen on 06/16 with though that this may represent single episode. Will monitor closely and consider video swallow. 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 - Cr up to 1.24 on admission; pre-renal in the setting of sepsis. - Cr down to 1.1 on 06/17; patient taking good oral intake, so will avoid further IV fluids. (3) Elevated troponin: Troponin up to 0.66 on admission. No chest pain. EKG showed some <1mm ST depressions in the lateral leads. - Trended troponins -> Stable at 0.6 on repeat. Will follow one more. (4) Sepsis: While she doesn't meet SIRS criteria, her lactate was 5.2 on admission and she met qSOFA criteria. - Monitor (5) CAD (coronary artery disease): S/p 2 stents. - Continue ASA, beta-nellie, statin (6) GERD (gastroesophageal reflux disease): - Continue PPI (7) DVT prophylaxis: SCDs - Low DVT risk per admission calculator Admission and Anticipated Discharge Date Admission Date: June 16, 2020 Subjective Having some cough and pain along the lower ribs which is worse with cough. Reports no fevers/chills, chest pain, shortness of breath, abdominal pain, nausea, or vomiting. Physical Exam Constitutional: WD/WN, vitals as above Eyes: EOM intact bilaterally; no conjunctival abnormality ENMT: external ear and nose normal, oropharynx normal Neck: trachea midline, no thyromegaly normal visual inspection Respiratory: normal respiratory effort, lungs clear to auscultation + cough; no respiratory distress Cardiovascular: RRR, no murmur, no edema Gastrointestinal (Abdomen): Inspection/Auscultation: abdomen normal to inspection; abdomen not distended Musculoskeletal: no cyanosis or clubbing, extremities motor strength 5/5 Skin: no rashes, warm and dry Neurologic: moves all extremities and awake Psychiatric: Orientation: alert, oriented to person and cooperative Results & Data Results & Data ([facility]) Vital Signs (Past 12 Hours) Vital Signs Temp Pulse Pulse Resp BP Pulse Ox 06/17/20 07:05 88 06/17/20 07:01 37.3 C 72 18 115/65 96 06/17/20 03:47 36.1 C L 68 18 142/62 H 96 PG Care Time/CCT Total # of Minutes Spent Total Time Spent with Patient: Total time spent is greater than 50% in coordination of care (as documented) at patient's floor/unit and/or counseling patient: Coding Level of Care Code 11416 Subseq Hosp Care Lvl 2 Diagnoses Aspiration pneumonia J69.0 MARIE (acute kidney injury) N17.9 Elevated troponin R77.8 Sepsis A41.9 CAD (coronary artery disease) I25.10 Coronary Disease-Associated Artery/Lesion type: [place] artery [place] vs. transplanted heart: [place] heart Associated angina: without angina GERD (gastroesophageal reflux disease) K21.9 Esophagitis presence: esophagitis presence not specified DVT prophylaxis Z29.9 (1) CAD (coronary artery disease) Coronary Disease-Associated Artery/Lesion type: [place] artery [place] vs. transplanted heart: [place] heart Associated angina: without angina Qualified Code(s): I25.10 - Atherosclerotic heart disease of [place] coronary artery without angina pectoris (2) GERD (gastroesophageal reflux disease) Esophagitis presence: esophagitis presence not specified Qualified Code(s): K21.9 - Gastro-esophageal reflux disease without esophagitis
[2020-06-17] MEDS: DOCUSATE SODIUM 100 MG CAP PO SCH (20:20)
[2020-06-17] MEDS: ATORVASTATIN 40 MG TAB PO SCH (20:21)
[2020-06-17] MEDS: ALBUT/IPRATROP 3MG/0.5MG NEB 3 ML VIAL NEB PRN (21:05)
--- NOTE | 2020-06-17 22:28 | Electrocardiogram Report ---
Test Reason : Blood Pressure : / mmHG Vent. Rate : 089 BPM Atrial Rate : 089 BPM P-R Int : 152 ms QRS Dur : 114 ms QT Int : 414 ms P-R-T Axes : 065 002 003 degrees QTc Int : 503 ms Sinus rhythm with frequent , and consecutive Premature ventricular complexes Low voltage QRS Possible Inferior infarct Nonspecific T wave abnormality Abnormal ECG When compared with ECG of 16-JUN-2020 04:16, Premature ventricular complexes are now Present Questionable change in initial forces of Inferior leads Right bundle branch block is no longer Present Confirmed by Dima Aleman ([id number]) on 06/17/2020 10:27:50 PM Referred By: [facility] Confirmed By:Dima Aleman
[2020-06-18] MEDS: AMPICILLIN/SULBACTAM SOD 3,000 MG in 0.9 % SODIUM CHLORIDE 100 ML IV SCH ×3 (01:12→23:01)
[2020-06-18] MEDS: ALBUT/IPRATROP 3MG/0.5MG NEB 3 ML VIAL NEB PRN ×2 (06:11→19:20)
[2020-06-18 08:22] LABS: Hematocrit (blood only) 34.5 % (37-47); Hemoglobin 11.3 g/dL (12.0-16.0); Mean Corpuscular Hemoglobin 32.5 pg (25-34); Mean Corpuscular Hgb Conc 32.8 g/dL (32-36); Mean Corpuscular Volume 99.1 fL (80-100); Mean Platelet Volume 10.1 fL (7.4-10.4); Platelet Count 203 K/uL (130-400); RDW Coefficient of Variation 13.9 % (11.5-14.5); Red Blood Count 3.48 M/uL (4.2-5.4); White Blood Count 8.73 K/uL (4.8-10.8)
[2020-06-18 08:46] LABS: BUN Creatinine Ratio 26.9 (10-20); Creatinine Clr Calc Pharmacy 43.7 ml/min; Est GFR (African American) 75.8; Est GFR (Non-African American) 65.4; Magnesium 2.1 mg/dl (1.8-2.4); Potassium 3.6 mmol/L (3.5-5.1)
[2020-06-18 08:53] LABS: Troponin I 0.102 ng/ml (0-0.045)
[2020-06-18] MEDS: PANTOprazole 40 MG TAB PO SCH ×2 (09:18→20:30)
[2020-06-18] MEDS: GABAPENTIN 100 MG CAP PO SCH ×3 (09:18→20:30)
--- NOTE | 2020-06-18 12:46 | XRay Report ---
XR chest 2V PA/lateral CLINICAL HISTORY: Hypoxemia COMPARISON STUDY: 06/16/2020 FINDINGS: The heart is enlarged. There is elevation of interstitium. Mild pulmonary vascular congesti on is suspected. There are persistent airspace opacities at the left lung base. There are no large pl eural effusions[ IMPRESSION: 1. Cardiomegaly and radiographic evidence of mild pulmonary vascular congestion 2. Persistent airspace opacities at the left lung base, suspicious for a pneumonia. ACT 112: Negative or not required by law. Electronically signed by: Tyler Iglesias M.D. 06/18/2020 12:22 PM
[2020-06-18] MEDS: ASPIRIN 81 MG CHEW PO SCH (13:01)
[2020-06-18] MEDS: FLUTICASONE/VILANTEROL 100/25MCG 14 PUFFS/INHALER INH SCH (13:01)
[2020-06-18] MEDS: METOPROLOL SUCC 50MG EXT REL TAB PO SCH (13:01)
[2020-06-18] MEDS: guaiFENesin 600 MG TABCR PO SCH (13:01)
[2020-06-18] MEDS: ACETAMINOPHEN 325 MG TAB PO PRN (13:15)
--- NOTE | 2020-06-18 17:57 | Hospitalist Progress Note ---
Date of Service June 18, 2020 Assessment & Plan (1) Aspiration pneumonia: CXR and CT a/p on 06/16 showed focal consolidation in the LLL. Given history of vomiting and aspiration, will treat as such. - Continue Unasyn - DuoNebs PRN - Continue home Breo - Supplemental O2 as needed for O2 sat > 90%. - SOFTWARE SALES MANAGER consulted - Seen on 06/16 with though that this may represent single episode. Video swallow on 06/17 without signs of aspiration; small penetration with thin liquid only, but no aspiration. 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 - Cr up to 1.24 on admission; pre-renal in the setting of sepsis. - Cr down to 0.8 on 06/18. (3) Elevated troponin: Troponin up to 0.66 on admission. No chest pain. EKG showed some <1mm ST depressions in the lateral leads. - Trended troponins -> Stable at 0.6 on repeat. Down to 0.10 on 06/18. (4) Sepsis: While she doesn't meet SIRS criteria, her lactate was 5.2 on admission and she met qSOFA criteria. Lactate resolved by 06/18. - Monitor (5) CAD (coronary artery disease): S/p 2 stents. - Continue ASA, beta-nellie, statin (6) GERD (gastroesophageal reflux disease): - Continue PPI (7) DVT prophylaxis: SCDs - Low DVT risk per admission calculator Admission and Anticipated Discharge Date Admission Date: June 16, 2020 Subjective Feeling better today. Still with cough. Reports no fevers/chills, chest pain, shortness of breath, abdominal pain, nausea, or vomiting. Physical Exam Constitutional: WD/WN, vitals as above Eyes: EOM intact bilaterally; no conjunctival abnormality ENMT: external ear and nose normal, oropharynx normal Neck: trachea midline, no thyromegaly normal visual inspection Respiratory: normal respiratory effort, lungs clear to auscultation + cough; no respiratory distress Cardiovascular: RRR, no murmur, no edema Gastrointestinal (Abdomen): Inspection/Auscultation: abdomen normal to inspection; abdomen not distended Musculoskeletal: no cyanosis or clubbing, extremities motor strength 5/5 Skin: no rashes, warm and dry Neurologic: moves all extremities and awake Psychiatric: Orientation: alert, oriented to person and cooperative Results & Data Results & Data ([facility]) Vital Signs (Past 12 Hours) Vital Signs Temp Pulse Resp BP Pulse Ox 06/18/20 15:54 36.8 C 81 20 108/66 98 06/18/20 07:51 36.6 C 84 18 108/71 97 06/18/20 06:17 83 22 97 PG Care Time/CCT Total # of Minutes Spent Total Time Spent with Patient: Total time spent is greater than 50% in coordination of care (as documented) at patient's floor/unit and/or counseling patient: Coding Level of Care Code 23539 Subseq Hosp Care Lvl 2 Diagnoses Aspiration pneumonia J69.0 MARIE (acute kidney injury) N17.9 Elevated troponin R77.8 Sepsis A41.9 CAD (coronary artery disease) I25.10 Coronary Disease-Associated Artery/Lesion type: [place] artery [place] vs. transplanted heart: [place] heart Associated angina: without angina GERD (gastroesophageal reflux disease) K21.9 Esophagitis presence: esophagitis presence not specified DVT prophylaxis Z29.9 (1) CAD (coronary artery disease) Coronary Disease-Associated Artery/Lesion type: [place] artery [place] vs. transplanted heart: [place] heart Associated angina: without angina Qualified Code(s): I25.10 - Atherosclerotic heart disease of [place] coronary artery without angina pectoris (2) GERD (gastroesophageal reflux disease) Esophagitis presence: esophagitis presence not specified Qualified Code(s): K21.9 - Gastro-esophageal reflux disease without esophagitis
[2020-06-18] MEDS ORDERED: LIDOCAINE 5% 1 PATCH TD SCH (18:00)
[2020-06-18] MEDS: POLYETHYLENE (MIRALAX) 17 GM PACK PO PRN (20:28)
[2020-06-18] MEDS: ATORVASTATIN 40 MG TAB PO SCH (20:29)
[2020-06-18] MEDS: DOCUSATE SODIUM 100 MG CAP PO SCH (20:29)
[2020-06-18] MEDS: OFLOXACIN 0.3% OP SOLN 5 ML BTL OPL SCH (20:29)
[2020-06-19 06:09] LABS: Hematocrit (blood only) 33.4 % (37-47); Hemoglobin 10.7 g/dL (12.0-16.0); Mean Corpuscular Hemoglobin 31.6 pg (25-34); Mean Corpuscular Volume 98.5 fL (80-100); Mean Platelet Volume 10.5 fL (7.4-10.4); Platelet Count 226 K/uL (130-400); RDW Coefficient of Variation 13.7 % (11.5-14.5); RDW Standard Deviation 49.2 fL (36.4-46.3); Red Blood Count 3.39 M/uL (4.2-5.4); White Blood Count 5.52 K/uL (4.8-10.8)
[2020-06-19 06:34] LABS: BUN Creatinine Ratio 25.8 (10-20); Calcium 7.9 mg/dl (8.5-10.1); Est GFR (African American) 80.6; Est GFR (Non-African American) 69.5; Potassium 3.6 mmol/L (3.5-5.1)
[2020-06-19] MEDS: GABAPENTIN 100 MG CAP PO SCH ×3 (08:40→20:32)
[2020-06-19] MEDS: OFLOXACIN 0.3% OP SOLN 5 ML BTL OPL SCH ×2 (08:41→20:32)
[2020-06-19] MEDS: PANTOprazole 40 MG TAB PO SCH ×2 (08:41→20:33)
[2020-06-19] MEDS: ACETAMINOPHEN 325 MG TAB PO PRN (08:51)
[2020-06-19] MEDS: POLYETHYLENE (MIRALAX) 17 GM PACK PO PRN (08:51)
[2020-06-19] MEDS: guaiFENesin 600 MG TABCR PO SCH (12:45)
[2020-06-19] MEDS: AMPICILLIN/SULBACTAM SOD 3,000 MG in 0.9 % SODIUM CHLORIDE 100 ML IV SCH (12:51)
[2020-06-19] MEDS: ASPIRIN 81 MG CHEW PO SCH (12:53)
[2020-06-19] MEDS: METOPROLOL SUCC 50MG EXT REL TAB PO SCH (12:53)
[2020-06-19] MEDS: FLUTICASONE/VILANTEROL 100/25MCG 14 PUFFS/INHALER INH SCH (12:54)
[2020-06-19] MEDS ORDERED: MAGNESIUM HYDROXIDE SUSP 30 ML UDC PO PRN (19:50)
[2020-06-19] MEDS: DOCUSATE SODIUM 100 MG CAP PO SCH (20:32)
[2020-06-19] MEDS: ATORVASTATIN 40 MG TAB PO SCH (20:32)
[2020-06-19] MEDS: LIDOCAINE 5% 1 PATCH TD SCH (20:36)
--- NOTE | 2020-06-19 20:50 | Hospitalist Progress Note ---
Date of Service June 19, 2020 Assessment & Plan (1) Aspiration pneumonia: CXR and CT a/p on 06/16 showed focal consolidation in the LLL. Given history of vomiting and aspiration, will treat as such. - DuoNebs PRN - Continue home Breo - Supplemental O2 as needed for O2 sat > 90%. - NODE JS DEVELOPER consulted - Seen on 06/16 with though that this may represent single episode. Video swallow on 06/17 without signs of aspiration; small penetration with thin liquid only, but no aspiration. - Continue Unasyn -> Likely discharge on Augmentin for 7-day course. - New O2 requirement; likely from pneumonia. Will likely need O2 on discharge back to [facility]. (2) Right flank pain: Right rib pain. Likely MSK from coughing. - Trialing lidocaine patches and acetaminphen with some relief. - Possibly also some constipation -> Has been on docusate and Miralax x 2 days. Will add senna today for a promotility agent. 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 - Cr up to 1.24 on admission; pre-renal in the setting of sepsis. - Cr down to 0.7 on 06/19. - Will restart Lasix tomorrow given normal kidney function. (4) Elevated troponin: Troponin up to 0.66 on admission. No chest pain. EKG showed some <1mm ST depressions in the lateral leads. - Trended troponins -> Stable at 0.6 on repeat. Down to 0.10 on 06/18. (5) Sepsis: While she doesn't meet SIRS criteria, her lactate was 5.2 on admission and she met qSOFA criteria. Lactate resolved by 06/18. - Monitor (6) CAD (coronary artery disease): S/p 2 stents. - Continue ASA, beta-nellie, statin (7) GERD (gastroesophageal reflux disease): - Continue PPI (8) DVT prophylaxis: SCDs - Low DVT risk per admission calculator Admission and Anticipated Discharge Date Admission Date: June 16, 2020 Subjective Doing overall well today. Continues to have some right-sided rib pain. Reports no fevers/chills, chest pain, shortness of breath, abdominal pain, nausea, or vomiting. Physical Exam Constitutional: WD/WN, vitals as above Eyes: EOM intact bilaterally; no conjunctival abnormality ENMT: external ear and nose normal, oropharynx normal Neck: trachea midline, no thyromegaly normal visual inspection Respiratory: normal respiratory effort, lungs clear to auscultation + cough; no respiratory distress Cardiovascular: RRR, no murmur, no edema Gastrointestinal (Abdomen): Inspection/Auscultation: abdomen normal to inspection; abdomen not distended Musculoskeletal: no cyanosis or clubbing, extremities motor strength 5/5 Skin: no rashes, warm and dry Neurologic: moves all extremities and awake Psychiatric: Orientation: alert, oriented to person and cooperative Results & Data Results & Data ([facility]) Vital Signs (Past 12 Hours) Vital Signs Temp Pulse Resp BP Pulse Ox 06/19/20 15:29 37.2 C 78 18 128/76 96 PG Care Time/CCT Total # of Minutes Spent Total Time Spent with Patient: Total time spent is greater than 50% in coordination of care (as documented) at patient's floor/unit and/or counseling patient: Coding Level of Care Code 55241 Subseq Hosp Care Lvl 2 Diagnoses Aspiration pneumonia J69.0 Right flank pain R10.9 MARIE (acute kidney injury) N17.9 Elevated troponin R77.8 Sepsis A41.9 CAD (coronary artery disease) I25.10 Coronary Disease-Associated Artery/Lesion type: [place] artery [place] vs. transplanted heart: [place] heart Associated angina: without angina GERD (gastroesophageal reflux disease) K21.9 Esophagitis presence: esophagitis presence not specified DVT prophylaxis Z29.9 (1) CAD (coronary artery disease) Coronary Disease-Associated Artery/Lesion type: [place] artery [place] vs. transplanted heart: [place] heart Associated angina: without angina Qualified Code(s): I25.10 - Atherosclerotic heart disease of [place] coronary artery without angina pectoris (2) GERD (gastroesophageal reflux disease) Esophagitis presence: esophagitis presence not specified Qualified Code(s): K21.9 - Gastro-esophageal reflux disease without esophagitis
[2020-06-19] MEDS: SENNA 8.6 MG TAB PO SCH (21:26)
[2020-06-20] MEDS: AMPICILLIN/SULBACTAM SOD 3,000 MG in 0.9 % SODIUM CHLORIDE 100 ML IV SCH ×2 (00:45→12:02)
[2020-06-20] MEDS: FLUTICASONE/VILANTEROL 100/25MCG 14 PUFFS/INHALER INH SCH (07:50)
[2020-06-20] MEDS: SENNA 8.6 MG TAB PO SCH (07:50)
[2020-06-20] MEDS: PANTOprazole 40 MG TAB PO SCH ×2 (07:50→21:52)
[2020-06-20] MEDS: FUROSEMIDE 40 MG TAB PO SCH (07:50)
[2020-06-20] MEDS: GABAPENTIN 100 MG CAP PO SCH ×3 (07:51→21:53)
[2020-06-20] MEDS: OFLOXACIN 0.3% OP SOLN 5 ML BTL OPL SCH ×2 (07:53→21:51)
[2020-06-20] MEDS: guaiFENesin 600 MG TABCR PO SCH (12:02)
[2020-06-20] MEDS: METOPROLOL SUCC 50MG EXT REL TAB PO SCH (12:02)
[2020-06-20] MEDS: ASPIRIN 81 MG CHEW PO SCH (12:03)
--- NOTE | 2020-06-20 21:38 | Hospitalist Progress Note ---
Date of Service June 20, 2020 Assessment & Plan (1) Aspiration pneumonia: CXR and CT a/p on 06/16 showed focal consolidation in the LLL. Given history of vomiting and aspiration, will treat as such. - DuoNebs PRN - Continue home Breo - Supplemental O2 as needed for O2 sat > 90%. - PRINCIPAL QUALITY ENGINEER consulted - Seen on 06/16 with though that this may represent single episode. Video swallow on 06/17 without signs of aspiration; small penetration with thin liquid only, but no aspiration. - Continue Unasyn -> Likely discharge on Augmentin for 7-day course. - New O2 requirement; likely from pneumonia. Will likely need O2 on discharge back to [facility]. -Awaiting placement, discussed discharge plan with daughter. -Agreeable with this (2) Right flank pain: Right rib pain. Likely MSK from coughing. - Trailing lidocaine patches and acetaminphen with some relief. - Possibly also some constipation -> Has been on docusate and Miralax x 2 days. Will add senna today for a promotility agent. -Pain appears mildly better today. -D/W daughter she does not want aggressive interventions, will hold off ischemic workup at this time as patient is improving. 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 - Cr up to 1.24 on admission; pre-renal in the setting of sepsis. - Cr down to 0.7 on 06/19. - resumed lasix. (4) Elevated troponin: Troponin up to 0.66 on admission. No chest pain. EKG showed some <1mm ST depressions in the lateral leads. - Trended troponins -> Stable at 0.6 on repeat. Down to 0.10 on 06/18. (5) Sepsis: While she doesn't meet SIRS criteria, her lactate was 5.2 on admission and she met qSOFA criteria. Lactate resolved by 06/18. - Monitor (6) CAD (coronary artery disease): S/p 2 stents. - Continue ASA, beta-nellie, statin (7) GERD (gastroesophageal reflux disease): - Continue PPI (8) DVT prophylaxis: SCDs - Low DVT risk per admission calculator Admission and Anticipated Discharge Date Admission Date: June 16, 2020 Subjective Daughter at bedside with patient in the bed. She reports she is feeling better but continues to have RUQ pain, however the pain is better now after the BM. Review of Systems Review of Systems: All systems reviewed & are unremarkable except as noted in HPI & below Physical Exam Physical Exam: Constitutional: WD/WN, vitals as above Eyes: EOM intact bilaterally; no conjunctival abnormality ENMT: external ear and nose normal, oropharynx normal Neck: trachea midline, no thyromegaly normal visual inspection Respiratory: normal respiratory effort, lungs clear to auscultation, no respiratory distress Cardiovascular: RRR, no murmur, no edema Gastrointestinal (Abdomen): Inspection/Auscultation: abdomen normal to inspection; abdomen not distended Musculoskeletal: no cyanosis or clubbing, extremities motor strength 5/5 Skin: no rashes, warm and dry Neurologic: moves all extremities and awake Psychiatric: Orientation: alert, oriented to person and cooperative Results & Data Results & Data ([facility]) Vital Signs (Past 12 Hours) Vital Signs Temp Pulse Resp BP Pulse Ox 06/20/20 15:45 36.9 C 79 20 150/78 H 92 06/20/20 11:57 82 125/71 PG Care Time/CCT Total # of Minutes Spent Total Time Spent with Patient: Total time spent is greater than 50% in c oordination of care (as documented) at patient's floor/unit and/or counseling patient: Coding Level of Care Code 88411 Subseq Hosp Care Lvl 3 Diagnoses Aspiration pneumonia J69.0 Right flank pain R10.9 MARIE (acute kidney injury) N17.9 Elevated troponin R77.8 Sepsis A41.9 CAD (coronary artery disease) I25.10 Associated angina: without angina Coronary Disease-Associated Artery/Lesion type: [place] artery [place] vs. transplanted heart: [place] heart GERD (gastroesophageal reflux disease) K21.9 Esophagitis presence: esophagitis presence not specified DVT prophylaxis Z29.9 Time Spent (min) 35 (1) CAD (coronary artery disease) Associated angina: without angina Coronary Disease-Associated Artery/Lesion type: [place] artery [place] vs. transplanted heart: [place] heart Qualified Code(s): I25.10 - Atherosclerotic heart disease of [place] coronary artery without angina pectoris (2) GERD (gastroesophageal reflux disease) Esophagitis presence: esophagitis presence not specified Qualified Code(s): K21.9 - Gastro-esophageal reflux disease without esophagitis
[2020-06-20] MEDS: DOCUSATE SODIUM 100 MG CAP PO SCH (21:51)
[2020-06-20] MEDS: LIDOCAINE 5% 1 PATCH TD SCH (21:52)
[2020-06-20] MEDS: ATORVASTATIN 40 MG TAB PO SCH (21:53)
[2020-06-21] MEDS: AMPICILLIN/SULBACTAM SOD 3,000 MG in 0.9 % SODIUM CHLORIDE 100 ML IV SCH (03:20)
[2020-06-21] MEDS: SENNA 8.6 MG TAB PO SCH (07:59)
[2020-06-21] MEDS: GABAPENTIN 100 MG CAP PO SCH ×2 (07:59→12:51)
[2020-06-21] MEDS: FUROSEMIDE 40 MG TAB PO SCH (07:59)
[2020-06-21] MEDS: PANTOprazole 40 MG TAB PO SCH (08:00)
[2020-06-21] MEDS: OFLOXACIN 0.3% OP SOLN 5 ML BTL OPL SCH (08:00)
[2020-06-21] MEDS ORDERED: AMOXICILLIN/CLAVULANATE 875 MG TAB PO SCH (12:00)
[2020-06-21] MEDS: guaiFENesin 600 MG TABCR PO SCH (12:50)
[2020-06-21] MEDS: ASPIRIN 81 MG CHEW PO SCH (12:50)
[2020-06-21] MEDS: METOPROLOL SUCC 50MG EXT REL TAB PO SCH (12:50)
[2020-06-21] MEDS: FLUTICASONE/VILANTEROL 100/25MCG 14 PUFFS/INHALER INH SCH (12:52)
--- NOTE | 2020-06-28 00:43 | Discharge Summary ---
Date of Service June 21, 2020 Admission HPI Per Admitting Provider 89yo F w/ hx of COPD who presents for aspiration pneumonia. She speaks only Danish, and the daughter provides translation. The daughter reports that her mother has been more lethargic and not herself for at least 3 or so days. On Wednesday, she noted her mother was having more trouble participating in PT at [facility] [place], but otherwise had no focal complaints. On Wednesday, the patient reported to her daughter some substernal chest discomfort, but otherwise this appears to have resolved. The patient has a chronic cough and sometimes the patient coughs with food per the daughter. She was sent in because last night she had emesis x 3-4. This morning, her cough was more pronounced, and she was mildly hypoxemic. The patient for her part denies any present symptoms apart from her thick cough. Reports no fevers/chills, chest pain, shortness of breath, abdominal pain, nausea, or vomiting. Principal Diagnosis aspiration pneumonia Discharge Exam Constitutional: WD/WN, vitals as above Eyes: EOM intact bilaterally; no conjunctival abnormality ENMT: external ear and nose normal, oropharynx normal Neck: trachea midline, no thyromegaly normal visual inspection Respiratory: normal respiratory effort, lungs clear to auscultation, no respiratory distress Cardiovascular: RRR, no murmur, no edema Gastrointestinal (Abdomen): Inspection/Auscultation: abdomen normal to inspection; abdomen not distended Musculoskeletal: no cyanosis or clubbing, extremities motor strength 5/5 Skin: no rashes, warm and dry Neurologic: moves all extremities and awake Psychiatric: Orientation: alert, oriented to person and cooperative Discharge Data Allergies Allergy/AdvReac Type Severity Reaction Status Date / Time pregabalin [From Lyrica] Allergy Unknown Unknown Verified 06/16/20 04:40 Consultations 06/16/20 08:24 ED Decision to Admit Stat Ordered Studies 06/16/20 05:25 CT abd pelvis IV con only Urgent 06/17/20 11:30 FL video swallow Routine Hospital Course (1) Aspiration pneumonia: CXR and CT a/p on 06/16 showed focal consolidation in the LLL. Given history of vomiting and aspiration, will treat as such. - DuoNebs PRN - Continue home Breo - Supplemental O2 as needed for O2 sat > 90%. - MANGLE FEEDER consulted - Seen on 06/16 with though that this may represent single episode. Video swallow on 06/17 without signs of aspiration; small penetration with thin liquid only, but no aspiration. - Continue Unasyn -> Likely discharge on Augmentin for 7-day course. - New O2 requirement; likely from pneumonia. Will likely need O2 on discharge back to [facility]. discussed discharge plan with daughter. -Agreeable with this (2) Right flank pain: Right rib pain. Likely MSK from coughing. - Trailing lidocaine patches and acetaminphen with some relief. - Possibly also some constipation -> Has been on docusate and Miralax x 2 days. Will add senna today for a promotility agent. -Pain appears mildly better today. -D/W daughter she does not want aggressive interventions, will hold off ischemic workup at this time as patient is improving. 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 - Cr up to 1.24 on admission; pre-renal in the setting of sepsis. - Cr down to 0.7 on 06/19. - resumed lasix. (4) Elevated troponin: Troponin up to 0.66 on admission. No chest pain. EKG showed some <1mm ST depressions in the lateral leads. - Trended troponins -> Stable at 0.6 on repeat. Down to 0.10 on 06/18. (5) Sepsis: While she doesn't meet SIRS criteria, her lactate was 5.2 on admission and she met qSOFA criteria. Lactate resolved by 06/18. - Monitor (6) CAD (coronary artery disease): S/p 2 stents. - Continue ASA, beta-nellie, statin (7) GERD (gastroesophageal reflux disease): - Continue PPI (8) DVT prophylaxis: SCDs - Low DVT risk per admission calculator Total Time Total Time Spent Total Time Spent (In Minutes): 32 Discharge Plan Discharge Items Patient Disposition: Trans Resident Long-Term Care Reason For Visit: ASPIRATION PNEUMONIA Discharge Diagnosis: Aspiration pneumonia Activity: Resume your previous activity Non-emergency contact: Primary Care Provider Call non-emergency contact if: you have any medication questions Follow-up/Referrals: [facility] [Primary Care Provider] - Diet: Heart Healthy Diet Texture: Easy to Chew Add Attending Provider Instructions: You have been hospitalized for an acute medical problem. During your stay at [facility], we have made an effort to correct the problem that brought you to the hospital while keeping you as comfortable as possible. Medications were used to bring your condition under control and your discharge instructions will include directions for any medications you should take after leaving the hospital. Please make sure you see your Primary Care Provider as part of your follow up plan. Recommend followup with PCP in 1-2 weeks. Continue with physical therapy at [facility]. Continue to use incentive spirometry every 2 hours while awake. Pending Studies at Discharge: No Stand-Alone Forms: My [facility], Smoking Cessation Medications and DC Order Prescriptions: New amoxicillin-pot clavulanate [Augmentin] 875-125 mg Tablet 1 tab PO BIDM Qty: 8 RF: 0 lidocaine 5 % Adhesive Patch,Medicated 2 patch transdermal QAM Qty: 15 RF: 0 ofloxacin 0.3 % Drops 1 drp OPL Q6H Qty: 5 RF: 0 Continued acetaminophen [Tylenol] 325 mg Tablet 650 mg PO Q6H MDD 3 GMS APAP/24 HOURS PRN (Reason: Fever Or Pain) RF: 0 ondansetron HCl 4 mg Tablet 4 mg PO Q8H PRN (Reason: Nausea And Vomiting) RF: 0 aspirin 81 mg Tablet,Chewable 81 mg PO .DAILY @ 1300 RF: 0 docusate sodium 100 mg Tablet 200 mg PO HS RF: 0 potassium chloride 10 mEq tablet,ER particles/crystals 10 meq PO .DAILY @ 1300 RF: 0 PreserVision AREDS-2 [id number] is-uxah-aw-mg Capsule 1 cap PO BID RF: 0 Caltrate 600 plus D 600 mg (1,500 mg)-800 unit Tablet,Chewable 2 tab PO .DAILY @ 1300 RF: 0 gabapentin 100 mg capsule 100 mg PO TID RF: 0 polyethylene glycol 3350 17 gram/dose Powder 17 g PO DAILY PRN (Reason: Constipation) RF: 0 atorvastatin 40 mg tablet 40 mg PO HS RF: 0 metoprolol succinate 50 mg tablet extended release 24 hr 50 mg PO .DAILY @1300 RF: 0 cyanocobalamin (vitamin B-12) 1,000 mcg Tablet 1,000 mcg PO .DAILY @ 1300 RF: 0 omeprazole 20 mg capsule,delayed release(DR/EC) 20 mg PO BID RF: 0 cholecalciferol (vitamin D3) 50 mcg (2,000 unit) Tablet 2,000 unit PO .DAILY @ 1300 RF: 0 albuterol sulfate 2.5 mg /3 mL (0.083 %) Solution For Nebulization 2.5 mg INHALATION Q6H PRN (Reason: Shortness Of Breath) RF: 0 promethazine [Phenergan] 25 mg/mL Solution 25 mg IM Q6H PRN (Reason: Nausea) RF: 0 carbamide peroxide [Debrox] 6.5 % Drops 2 drp OTB QID RF: 0 simethicone 80 mg Tablet,Chewable 80 mg PO Q8H PRN (Reason: ABD DISCOMFORT) RF: 0 Refresh Plus 0.5 % Dropperette 1 drp OPB BID RF: 0 Refresh Plus 0.5 % Dropperette 1 drp OPB Q2H PRN (Reason: Dry Eyes) RF: 0 Mucinex 1,200 mg Tablet Extended Release 12hr 1,200 mg PO .DAILY @ 1300 RF: 0 potassium chloride 20 mEq Tablet Extended Release 20 meq PO .DAILY @ 1300 RF: 0 furosemide 40 mg tablet 40 mg PO .DAILY @ 1300 RF: 0 Breo Ellipta 100-25 mcg/dose blister with device 1 ea inhalation .DAILY @ 1300 RF: 0 Discontinued naproxen 250 mg Tablet 250 mg PO Q8H PRN (Reason: Inflammation/Moderate Pain) RF: 0 Discharge Orders: Discharge Order (Routine); Ordered 06/21/20 Ordered By: Geovany Dominguez Admission Data Admit Date/Time: 06/16/20 09:27 Attending Provider: Geovany Dominguez Admit Provider: Leobardo Garcia Primary Care Provider: Tung Parson Other Providers: Leobardo Garcia Other Interventions: Discharge Summary Assessment (RN) Last Done: 06/21/20 14:07 Coding Level of Care Code D/C Day Management >30 mins Diagnoses Aspiration pneumonia J69.0 Right flank pain R10.9 MARIE (acute kidney injury) N17.9 Elevated troponin R77.8 Sepsis A41.9 CAD (coronary artery disease) I25.10 Coronary Disease-Associated Artery/Lesion type: [place] artery [place] vs. transplanted heart: [place] heart Associated angina: without angina GERD (gastroesophageal reflux disease) K21.9 Esophagitis presence: esophagitis presence not specified DVT prophylaxis Z29.9
== END 2020-06-21 17:26 | DRG 871 ==
LOC: ED 04:09 → 2N 09:27 → SUATTDRO 09:27 → 2N 09:54